=== PATIENT | female | born 1970 | race Caucasian/White ===

== ENCOUNTER 2017-08-15 11:51 | Inpatient (IN) | payer MEDICAID, SELFPAY ==
[2017-08-15 11:52] VITALS: BP 122/93; PULSE 97; RESP 16; TEMP 36.9; O2SAT 99; BMI 18.4
[2017-08-15 13:02] LABS: Absolute Lymphocyte Count 1.32 X10^3/ul (0.83-4.51); Absolute Neutrophil Count 9.5 X10^3/uL (2.0-7.7); Basophil# 0.03 X10^3/uL; Basophil% 0.3 % (0-1); Eosinophil# 0.03 X10^3/uL; Eosinophils% 0.3 % (0-5); Hematocrit 34.7 % (37-47); Hemoglobin 11.2 g/dl (12.0-15.0); Lymphocyte # 1.32 X10^3/ul (4.0); Lymphocyte % 11.5 % (19-41); Mean Corp Hgb Conc 32.3 g/gl (32-36); Mean Corpuscular Hgb 23.7 pg (27.0-32.0); Mean Corpuscular Volume 73.4 fL (81-99); Monocyte# 0.57 X10^3/uL; Neutrophil # 9.51 X10^3/uL (2.7-7.7); Neutrophil % 82.7 % (47-70); Platelet Count 386 K/mm3 (150-450); RBC Distribution Width CV 14.9 % (11.6-14.6); RBC Distribution Width SD 39.3 fl (35.1-43.9); Red Blood Count 4.73 M/mm3 (4.2-5.4); White Blood Count 11.5 K/mm3 (4.4-11.0)
[2017-08-15 13:03] LABS: Anion Gap 6 (5-15); BUN 11 mg/dL (7-18); BUN/Creat Ratio 20.1 RATIO (10-20); Calcium,Total 9.6 mg/dL (8.5-10.1); Chloride 107 mmol/L (98-107); Creatinine, Serum 0.55 mg/dL (0.55-1.02); Differential Indicated SCAN CRITERIA MET; EST Glomerular Filtration Rate 126 mL/min (>60); Est Glom Filt Rate - Afr Amer 152 mL/min (>60); Estimated Creatinine Clearance 85.64 ml/min; Glucose 105 mg/dL (74-106); POSITIVE COUNT NO; POSITIVE DIFFERENTIAL NO; POSITIVE MORPHOLOGY YES; Potassium 3.9 mmol/L (3.5-5.1); Sodium Level 141 mmol/L (136-145)
[2017-08-15 13:29] LABS: Anisocytosis 1+
--- NOTE | 2017-08-15 13:59 | NURSING ---
PAGED NEW VISION
[2017-08-15 14:30] VITALS: BMI 18.5
[2017-08-15] MEDS: Smz/Tmp Ds Tablet 1 TABLET PO (14:42)
[2017-08-15] MEDS: Cephalexin 500 MG Capsule PO (14:42)
[2017-08-15 14:44] VITALS: BP 119/79; RESP 18
--- NOTE | 2017-08-15 15:56 | ED.VISSUMM ---
- ER Visit Summary Date of Service: 08/15/17 Chief Complaint: To ER by Devika from [facility] for medical clearance History of Present Illness: The patient is a 46 F has history of IV heroin use and tobacco use. She was admitted to [facility] proximally 6-7 months ago. She states 1 day after discharge she began to use heroin again. He was admitted for cellulitis of her forearms. When she was discharged she began injecting anterior right and left leg. She denies fever, chills night sweats. Denies weight gain or weight loss. She denies history rheumatic fever, murmur, mitral valve prolapse, SBE or be immune suppressed. She denies history of hepatitis or HIV. She does admit to picking at her skin and reason wounds have not healed. She denies any cardiac, respiratory, GI or symptoms. She denies headache, photophobia, paresthesia, anesthesia or motor weakness. She has trouble with her balance. She denies any ocular or auditory symptoms. Physical Examination: Vital signs are unremarkable and she is afebrile. Head is atraumatic normocephalic. Pupils are equal round reactive. Extraocular muscles are intact. TMs are pearly white with landmarks noted. Nares patent with no drainage. Posterior pharynx without erythema or exudate. Uvula is midline. There is no dysphonia or dysphasia. Trachea is midline. There is no stridor with auscultation of the neck. Heart is regular without murmur, gallop or rub. S1 and S2 are normal. Lungs are clear to auscultation with good movement of air bilaterally. Abdomen is soft nontender with decreased bowel sounds. Patient is alert and oriented ?3. Motor is 5 over 5. Sensory is intact. DTRs are symmetric with no clonus or Babinski sign. Cranial 2 through 12 are intact. Cerebellar testing is normal. Examination of the upper and lower extremities reveals multiple scars. There is slight erythema and warmth dorsal mid right forearm. There is no fluctuance, lymphangitis, epitrochlear or axial lymphadenopathy. Test Results: CBC is slightly elevated 11.5 thousand with 83 segs and no bands. Electrode panel is normal. Emergency Department Course and Treatment: CBC and BMP were obtained to evaluate patient's symptoms and complaints. She was treated with Bactrim DS and cephalexin 500 mg for strep and staph coverage. Treatment Plan: Devika jiang [facility] evaluated the patient and informed me that she qualifies for admission for opiate withdrawal. Therefore, Dr. Donny Mendoza was notified and will admit patient Disposition: Admit [facility] for opiate withdrawal Impression: 1. Opiate withdrawal 2. Cellulitis right forearm 3. Eschar left upper extremity, right and left leg secondary to IV drug use This note was generated with [employer] dictation software. It may contain incorrect words, spelling, and punctuation that were not noted in review of the chart prior to signing ED Disposition - Plan for ED Patient: Chief Complaint: Abscess Referrals: Belén Fall DO [Primary Care Provider] -
--- NOTE | 2017-08-15 16:01 | ED.DCSUM_ITS ---
- ER Visit Summary Date of Service: 08/15/17 Chief Complaint: To ER by Devika from [facility] for medical clearance History of Present Illness: The patient is a 46 F has history of IV heroin use and tobacco use. She was admitted to [facility] proximally 6-7 months ago. She states 1 day after discharge she began to use heroin again. He was admitted for cellulitis of her forearms. When she was discharged she began injecting anterior right and left leg. She denies fever, chills night sweats. Denies weight gain or weight loss. She denies history rheumatic fever, murmur, mitral valve prolapse, SBE or be immune suppressed. She denies history of hepatitis or HIV. She does admit to picking at her skin and reason wounds have not healed. She denies any cardiac, respiratory, GI or symptoms. She denies headache, photophobia, paresthesia, anesthesia or motor weakness. She has trouble with her balance. She denies any ocular or auditory symptoms. Physical Examination: Vital signs are unremarkable and she is afebrile. Head is atraumatic normocephalic. Pupils are equal round reactive. Extraocular muscles are intact. TMs are pearly white with landmarks noted. Nares patent with no drainage. Posterior pharynx without erythema or exudate. Uvula is midline. There is no dysphonia or dysphasia. Trachea is midline. There is no stridor with auscultation of the neck. Heart is regular without murmur, gallop or rub. S1 and S2 are normal. Lungs are clear to auscultation with good movement of air bilaterally. Abdomen is soft nontender with decreased bowel sounds. Patient is alert and oriented ?3. Motor is 5 over 5. Sensory is intact. DTRs are symmetric with no clonus or Babinski sign. Cranial 2 through 12 are intact. Cerebellar testing is normal. Examination of the upper and lower extremities reveals multiple scars. There is slight erythema and warmth dorsal mid right forearm. There is no fluctuance, lymphangitis, epitrochlear or axial lymphadenopathy. Test Results: CBC is slightly elevated 11.5 thousand with 83 segs and no bands. Electrode panel is normal. Emergency Department Course and Treatment: CBC and BMP were obtained to evaluate patient's symptoms and complaints. She was treated with Bactrim DS and cephalexin 500 mg for strep and staph coverage. Treatment Plan: Devika jiang [facility] evaluated the patient and informed me that she qualifies for admission for opiate withdrawal. Therefore, Dr. Donny Mendoza was notified and will admit patient Disposition: Admit [facility] for opiate withdrawal Impression: 1. Opiate withdrawal 2. Cellulitis right forearm 3. Eschar left upper extremity, right and left leg secondary to IV drug use This note was generated with [employer] dictation software. It may contain incorrect words, spelling, and punctuation that were not noted in review of the chart prior to signing ED Disposition - Plan for ED Patient: Chief Complaint: Abscess Referrals: Belén Fall DO [Primary Care Provider] -
[2017-08-15 16:04] VITALS: BP 119/79; PULSE 92; RESP 18
--- NOTE | 2017-08-15 16:13 | NURSING ---
211 OPIOD WITHDRAWAL TERELETSKY
[2017-08-15 16:20] VITALS: BMI 18.6
--- NOTE | 2017-08-15 16:23 | PCM.HP.STD ---
Problem List (1) Opiate withdrawal Status: Acute History of Present Illness Date of Admission: 08/15/17 Chief Complaint: Opiate withdrawal The patient is a 46 year old F who presents through [facility] for opiate withdrawal. She admits to using 0.5-1 g of IV heroin per day for approximately a year and a half. She denies other drug or alcohol use. She is a current pack per day smoker. Her past medical history includes emphysema and chronic anemia. She has significant wounds bilateral upper and lower extremities due to IV drug use. She denies fever, chills. Complains of joint aching. Denies other associated complaints or current withdrawal symptoms. She denies history of overdose, denies history of seizures. Patient has been in treatment approximately 6 months ago for opiate withdrawal and continued using shortly after. She reports she has lost custody of her children which is motivated her to obtain sobriety. 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 Smoking Status: Current every day smoker Tobacco Use: Cigarettes - 1 PPD Drugs: Heroin - *Family History Maternal History Items: Diabetes Paternal History Items: Heart Disease Review of Systems Constitutional: Denies: Chills, Fever, Weight Change HEENT: Denies: Head Aches, Sinus Congestion, Sinus Drainage Cardiovascular: Denies: Chest Pain, Palpitations Respiratory: Denies: Cough, Shortness of breath at rest, Sputum production Gastrointestinal: Denies: Abdominal Pain, Nausea, Vomiting Genitourinary: Denies: Dysuria Musculoskeletal: Reports: Joint Pain Skin: Reports: Wounds - Bilateral upper and lower extremity Neurological: Denies: Numbness, Tingling, Focal weakness Psychiatric: Denies: Anxiety, Depression, Homicidal Ideations, Suicidal Ideations Hematologic/ Lymphatic: Denies: Easy Bruising, Easy Bleeding VTE Information - Inpt Only VTE Present on Admission: No VTE Mechan Device Prophylaxis: SCD's VTE Pharm Prophylaxis ordered?: No Reason prophylaxis not ordered:: Treatment Not Indicated Patient Problems: Active and Suspected Problems Opiate withdrawal (Acute) - Physical Exam General: Alert, Oriented x3, Cooperative, No apparent distress HEENT: Atraumatic, PERRLA, EOMI, Normocephalic Oral: Dry Mucosa, - - Poor dentition Neck: Supple, No JVD, Negative Carotid Bruits Lungs: Clear to auscultation, Diminished Cardiovascular: Regular rate, Regular Rhythm, Normal S1, Normal S2, No murmurs Abdomen: Bowel Sounds Present, Soft, Non Tender, Non-Distended Extremities: No clubbing, No cyanosis, No edema, Capillary Refill Less than 3 Seconds Skin: - - Significant wounds bilateral forearms and bilateral anterior shins bilateral lower extremities. Purulent abscess noted on right lower forearm. Otherwise wounds appears scabbed without signs of infection. Musculoskeletal: No Tenderness to Palpation of Joints or Extremities, Cachexia Neurological: Cranial nerves II-XII grossly intact, Neuro grossly intact Psych/Mental Status: Normal Affect, Appropriate Vital Signs Temp Pulse Resp BP Pulse Ox 98.4 F 92 18 119/79 99 08/15/17 11:52 08/15/17 16:04 08/15/17 16:04 08/15/17 16:04 08/15/17 11:52 Assessment/Plan Active and Suspected Problems Opiate withdrawal (Acute) 1. Acute opiate withdrawal/opioid abuse-medical stabilization per protocol. 2. Bilateral upper extremity and lower extremity cellulitis secondary to IV drug use-begin p.o. Vibramycin. Consult wound RN. 3. Tobacco dependence-encouraged smoking cessation. Nicotine replacement patch. 4. Chronic anemia- stable. DVT prophylaxis- SCDs This patient was seen by BENITO Lin under the supervision of Dr. Wilder.
[2017-08-15 16:27] VITALS: BP 118/80; PULSE 81; RESP 18; TEMP 37.2; O2SAT 100
[2017-08-15] MEDS: cloNIDine HCl 0.1 MG Tablet PO ×2 (16:43→22:48)
[2017-08-15] MEDS: Methocarbamol 750 MG Tablet PO ×2 (16:43→22:47)
[2017-08-15] MEDS: chlordiazePOXIDE 25 MG Capsule PO ×2 (16:43→19:35)
[2017-08-15] MEDS: Buprenorphine HCl 2 MG TAB.SUBL SL (17:51)
[2017-08-15 17:52] VITALS: BP 118/80; PULSE 81; RESP 18; TEMP 37.2
[2017-08-15] MEDS: Pramipexole Di-HCl 0.25 MG Tablet PO (19:36)
--- NOTE | 2017-08-15 19:39 | NURSING ---
pt out in [place] states she is leaving unless she gets a sleeping pill right now, explained that the dr ordered extra dose of librium which will help relax her. pt returned to her room so dayshift rn could give med. pt wants to know how she can leave explained that she may leave at any time ama if she is not ready for the program at this time [facility] is not a locked unit to let the nurse know if she decides to leave. extra dose of librium given per order by the dayshift rn
[2017-08-15] MEDS: traZODone 50 MG Tablet PO (22:47)
[2017-08-15] MEDS: Dicyclomine 10 MG Capsule 20 MG PO (22:47)
[2017-08-15] MEDS: Doxycycline 100 MG CAPSULE PO (22:48)
[2017-08-15 22:52] VITALS: BP 114/67; PULSE 68; RESP 16; TEMP 36.6
[2017-08-16] VITALS (8 sets, daily range): BP systolic 77–111; BP diastolic 47–73; PULSE 54–68; RESP 16–18; TEMP 36.3–36.9; O2SAT 99
[2017-08-16] MEDS: chlordiazePOXIDE 25 MG Capsule PO ×2 (01:33→07:27)
[2017-08-16] MEDS: Buprenorphine HCl 2 MG TAB.SUBL SL ×3 (01:33→18:11)
[2017-08-16] MEDS: cloNIDine HCl 0.1 MG Tablet PO (01:33)
[2017-08-16] MEDS: Methocarbamol 750 MG Tablet PO ×2 (05:09→12:21)
[2017-08-16] MEDS: Dicyclomine 10 MG Capsule 20 MG PO ×2 (05:09→12:21)
[2017-08-16] MEDS: Pramipexole Di-HCl 0.25 MG Tablet PO ×2 (07:27→18:11)
--- NOTE | 2017-08-16 08:42 | PCM.PN.HOSP ---
Patient Problems: Active and Suspected Problems Opiate withdrawal (Acute) Subjective: Did not sleep well last night due to restless legs. Stated that she fell asleep around 2 AM. Requesting something stronger to help her sleep and made mention of Xanax or Valium as she knows other people that are taking it. Vitals/I&O's: Vital Signs Temp Pulse Resp BP Pulse Ox 36.6 C 54 L 16 98/54 L 100 08/16/17 05:12 08/16/17 05:12 08/16/17 05:12 08/16/17 05:12 08/15/17 16:27 Oxygen Delivery Method Room Air Weight: 43.148 kg Body Mass Index (BMI) 18.6 Intake and Output for Last 24 Hours 08/14/17 08/15/17 08/16/17 23:59 23:59 23:59 Intake Total 200 / 200 Balance 200 / 200 General: Alert, Cooperative, No apparent distress HEENT: Atraumatic, Normocephalic Neck: No Nodes, Thyroid Normal Size and Texture Lungs: Clear to auscultation, Normal air movement, No rhonchi, No wheeze Cardiovascular: Regular rate, Regular Rhythm, Normal S1, Normal S2, No murmurs Abdomen: Bowel Sounds Present, Soft, Non Tender, Non-Distended, No Hepato-splenomegaly Skin: - - Eschars on the bilateral upper extremities. Appears to be clean base. No surrounding erythema nor any evidence of any cellulitis. Psych/Mental Status: Normal Affect, Appropriate Current Medications Buprenorphine HCl (Buprenorphine Hcl) 4 mg SL Q8H GRAY PRN Reason: Taper Stop: 08/18/17 21:59 Last Admin: 08/16/17 01:33 Dose: 4 mg Chlordiazepoxide (Librium) 25 mg PO Q6H PRN PRN PRN Reason: Anxiety Score 2-3/3 Last Admin: 08/16/17 07:27 Dose: 25 mg Clonidine (Catapres) 0.1 mg PO Q2H PRN PRN PRN Reason: Hot/Cold Sweats or Anxiety Last Admin: 08/16/17 01:33 Dose: 0.1 mg Dicyclomine HCl (Bentyl) 20 mg PO Q6H PRN PRN PRN Reason: Abdomnial Discomfort Last Admin: 08/16/17 05:09 Dose: 20 mg Doxycycline Monohydrate (Doxycycline) 100 mg PO BID [facility] Last Admin: 08/15/17 22:48 Dose: 100 mg Methocarbamol (Methocarbamol) 750 mg PO Q6H PRN PRN PRN Reason: Muscle Aches Last Admin: 08/16/17 05:09 Dose: 750 mg Nicotine (Nicoderm Cq (Pbkc)) 21 mg TRANSDERM. DAILY [facility] Last Admin: 08/15/17 16:58 Dose: 21 mg Nutritional Formula (Lactose Free) (Ensure Enlive) 120 ml PO 4X/DAY [facility] Last Admin: 08/15/17 22:47 Dose: 120 ml Pramipexole Dihydrochloride (Mirapex) 0.25 mg PO BID PRN PRN Reason: RESTLESSNESS Last Admin: 08/16/17 07:27 Dose: 0.25 mg Trazodone HCl (Desyrel) 50 mg PO QHS [facility] Last Admin: 08/15/17 22:47 Dose: 50 mg Assessment/Plan Active and Suspected Problems Opiate withdrawal (Acute) 1. Acute heroin withdrawal Patient to continue with buprenorphine taper as already laid out in the medical stabilization protocol. Patient also have other medications to help with other somatic complaints. Patient with restless leg so that we can add Sinemet to help with that. For the patient's insomnia, informed her that seems that the restless legs were more of a aggravation for keeping her up rather than just being overt insomnia. I told her that I would not be giving her any medications is going to to completely knock her out. But hopefully if we can focus on her symptoms at that would allow her to sleep better. I informed her also that the first 19 to be the worst as well and following subsequent nights tend to be better dramatically. I told her I would not be prescribing her any benzodiazepines as I do not want to treat one addiction for another and I discouraged the use of Valium and Xanax for sleep. We can go up on the trazodone to 100 and see if that helps. Patient was ordered by the admitting physician Elder for anxiety, I am going to discontinue that as patient is very somnolent just this morning and utilize Vistaril for anxiety. Outpatient therapy has been arranged for the patient. Expected date of discharge is August 18. Upper extremity eschars Evidence of any infection at this time. If any concern for infection does arrived then would have a low threshold to initiate antibiotic therapy. Code Visit Inpatient E&M: 63489 Subs Hosp L2
--- NOTE | 2017-08-16 08:47 | PN_ITS ---
Patient Problems: Active and Suspected Problems Opiate withdrawal (Acute) Subjective: Did not sleep well last night due to restless legs. Stated that she fell asleep around 2 AM. Requesting something stronger to help her sleep and made mention of Xanax or Valium as she knows other people that are taking it. Vitals/I&O's: Vital Signs Temp Pulse Resp BP Pulse Ox 36.6 C 54 L 16 98/54 L 100 08/16/17 05:12 08/16/17 05:12 08/16/17 05:12 08/16/17 05:12 08/15/17 16:27 Oxygen Delivery Method Room Air Weight: 43.148 kg Body Mass Index (BMI) 18.6 Intake and Output for Last 24 Hours 08/14/17 08/15/17 08/16/17 23:59 23:59 23:59 Intake Total 200 / 200 Balance 200 / 200 General: Alert, Cooperative, No apparent distress HEENT: Atraumatic, Normocephalic Neck: No Nodes, Thyroid Normal Size and Texture Lungs: Clear to auscultation, Normal air movement, No rhonchi, No wheeze Cardiovascular: Regular rate, Regular Rhythm, Normal S1, Normal S2, No murmurs Abdomen: Bowel Sounds Present, Soft, Non Tender, Non-Distended, No Hepato- splenomegaly Skin: - - Eschars on the bilateral upper extremities. Appears to be clean base. No surrounding erythema nor any evidence of any cellulitis. Psych/Mental Status: Normal Affect, Appropriate Current Medications Buprenorphine HCl (Buprenorphine Hcl) 4 mg SL Q8H GRAY PRN Reason: Taper Stop: 08/18/17 21:59 Last Admin: 08/16/17 01:33 Dose: 4 mg Chlordiazepoxide (Librium) 25 mg PO Q6H PRN PRN PRN Reason: Anxiety Score 2-3/3 Last Admin: 08/16/17 07:27 Dose: 25 mg Clonidine (Catapres) 0.1 mg PO Q2H PRN PRN PRN Reason: Hot/Cold Sweats or Anxiety Last Admin: 08/16/17 01:33 Dose: 0.1 mg Dicyclomine HCl (Bentyl) 20 mg PO Q6H PRN PRN PRN Reason: Abdomnial Discomfort Last Admin: 08/16/17 05:09 Dose: 20 mg Doxycycline Monohydrate (Doxycycline) 100 mg PO BID [facility] Last Admin: 08/15/17 22:48 Dose: 100 mg Methocarbamol (Methocarbamol) 750 mg PO Q6H PRN PRN PRN Reason: Muscle Aches Last Admin: 08/16/17 05:09 Dose: 750 mg Nicotine (Nicoderm Cq (Pbkc)) 21 mg TRANSDERM. DAILY [facility] Last Admin: 08/15/17 16:58 Dose: 21 mg Nutritional Formula (Lactose Free) (Ensure Enlive) 120 ml PO 4X/DAY [facility] Last Admin: 08/15/17 22:47 Dose: 120 ml Pramipexole Dihydrochloride (Mirapex) 0.25 mg PO BID PRN PRN Reason: RESTLESSNESS Last Admin: 08/16/17 07:27 Dose: 0.25 mg Trazodone HCl (Desyrel) 50 mg PO QHS [facility] Last Admin: 08/15/17 22:47 Dose: 50 mg Assessment/Plan Active and Suspected Problems Opiate withdrawal (Acute) 1. Acute heroin withdrawal * Patient to continue with buprenorphine taper as already laid out in the medical stabilization protocol. Patient also have other medications to help with other somatic complaints. * Patient with restless leg so that we can add Sinemet to help with that. * For the patient's insomnia, informed her that seems that the restless legs were more of a aggravation for keeping her up rather than just being overt insomnia. I told her that I would not be giving her any medications is going to to completely knock her out. But hopefully if we can focus on her symptoms at that would allow her to sleep better. I informed her also that the first 19 to be the worst as well and following subsequent nights tend to be better dramatically. * I told her I would not be prescribing her any benzodiazepines as I do not want to treat one addiction for another and I discouraged the use of Valium and Xanax for sleep. We can go up on the trazodone to 100 and see if that helps. * Patient was ordered by the admitting physician Elder for anxiety, I am going to discontinue that as patient is very somnolent just this morning and utilize Vistaril for anxiety. * Outpatient therapy has been arranged for the patient. * Expected date of discharge is August 18. Upper extremity eschars * Evidence of any infection at this time. If any concern for infection does arrived then would have a low threshold to initiate antibiotic therapy. Code Visit Inpatient E&M: 76129 Subs Hosp L2
[2017-08-16] MEDS: Doxycycline 100 MG CAPSULE PO ×2 (10:44→22:22)
--- NOTE | 2017-08-16 12:14 | NURSING ---
wound photo: left forearm
--- NOTE | 2017-08-16 12:15 | NURSING ---
wound photo: right forearm
--- NOTE | 2017-08-16 12:15 | NURSING ---
wound photo: bilateral lower legs
[2017-08-16] MEDS: 0.9% Normal Saline 1,000 ML 999 ML IV (14:30)
--- NOTE | 2017-08-16 15:10 | CHAPLAIN ---
Type of Pastoral Visit _x__ Initial Visit ___ Follow-up Visit ___ On-call Visit ___ General Patient Visit ___ Spiritual Assessment ___ Family Conference ___ Bereavement ___ Rapid Response ___ Code Blue ___ Other (describe below) Pastoral Care Referral From _x__ Patient ___ Family ___ Nurse ___ Physician ___ Sales And Marketing Administrator ___ Bail Agent ___ Other (describe below) Sacrament/Intervention _x__ Active listening ___ Anointing ___ Confucianism ___ Bereavement ___ Communion ___ Misa exploration ___ ___ Life review _x__ Prayer ___ Reconciliation ___ Sacrament of Sick _x__ Supportive presence ___ Wedding ___ Other (describe below) Pastoral Comments patient is concerned about getting to go back to work; pt says she has family support; pt does not yet have a plan about support after medical stabilization; pt welcomed a prayer
--- NOTE | 2017-08-16 22:37 | NURSING ---
Patient's sister called this evening. She stated she went through the drug withdrawal program 3-months ago, and has been clean. She stated that she has stayed away from her sister, because she said they are each others weakness. The sister stated she is in [facility] and had talked to her sister and that was the program she wanted to go to after discharge. The sister expressing concerns in being in the same group, and feels it would be better if they were not in the same group. I will leave a note for the [employer] arts administrator.
[2017-08-17] VITALS (7 sets, daily range): BP systolic 91–104; BP diastolic 54–60; PULSE 62–77; RESP 16–18; TEMP 36.5–36.8; O2SAT 99–100
[2017-08-17] MEDS: Buprenorphine HCl 2 MG TAB.SUBL SL ×3 (02:14→21:12)
[2017-08-17] MEDS: Pramipexole Di-HCl 0.25 MG Tablet PO (06:44)
--- NOTE | 2017-08-17 08:26 | NURSING ---
pt c/o feeling sluggish requesting b/p to be taken at this time. Vitals taken- b/p 95/58- denies dizziness. Resting in bed denies further needs
--- NOTE | 2017-08-17 09:16 | PN_ITS ---
Patient Problems: Active and Suspected Problems Opiate withdrawal (Acute) Subjective: Better. Slept for about 6 9 hours last night. Vitals/I&O's: Vital Signs Temp Pulse Resp BP Pulse Ox 36.5 C L 70 16 95/58 L 99 08/17/17 08:27 08/17/17 08:27 08/17/17 08:27 08/17/17 08:27 08/17/17 08:25 Oxygen Delivery Method Room Air Weight: 43.148 kg Body Mass Index (BMI) 18.6 Intake and Output for Last 24 Hours 08/15/17 08/16/17 08/17/17 23:59 23:59 23:59 Intake Total 200 / 200 1600 / 1600 400 / 400 Balance 200 / 200 1600 / 1600 400 / 400 General: Alert, Cooperative, No apparent distress HEENT: Atraumatic, Normocephalic Neck: No Nodes, Thyroid Normal Size and Texture Lungs: Clear to auscultation, Normal air movement, No rhonchi, No wheeze Cardiovascular: Regular rate, Regular Rhythm, Normal S1, Normal S2, No murmurs Abdomen: Bowel Sounds Present, Soft, Non Tender, Non-Distended, No Hepato- splenomegaly Skin: - - Showers on the upper and lower extremities without any evidence of cellulitis. Current Medications Buprenorphine HCl (Buprenorphine Hcl) 2 mg SL Q8H ON LICENSE OF [facility] PRN Reason: Taper Stop: 08/18/17 21:59 Last Admin: 08/17/17 02:14 Dose: 2 mg Clonidine (Catapres) 0.1 mg PO Q2H PRN PRN PRN Reason: Hot/Cold Sweats or Anxiety Last Admin: 08/16/17 01:33 Dose: 0.1 mg Dicyclomine HCl (Bentyl) 20 mg PO Q6H PRN PRN PRN Reason: Abdomnial Discomfort Last Admin: 08/16/17 12:21 Dose: 20 mg Doxycycline Monohydrate (Doxycycline) 100 mg PO BID ON LICENSE OF [facility] Last Admin: 08/16/17 22:22 Dose: 100 mg Hydroxyzine Pamoate (Vistaril) 50 mg PO Q6H PRN PRN PRN Reason: Mild Anxiety (score 1/3) Methocarbamol (Methocarbamol) 750 mg PO Q6H PRN PRN PRN Reason: Muscle Aches Last Admin: 08/16/17 12:21 Dose: 750 mg Nicotine (Nicoderm Cq (Pbkc)) 21 mg TRANSDERM. DAILY GRAY Last Admin: 08/16/17 10:44 Dose: 21 mg Pramipexole Dihydrochloride (Mirapex) 0.25 mg PO Q12H PRN PRN PRN Reason: Restless Legs Last Admin: 08/17/17 06:44 Dose: 0.25 mg Trazodone HCl (Desyrel) 100 mg PO HS GRAY Last Admin: 08/16/17 22:22 Dose: 100 mg Assessment/Plan Active and Suspected Problems Opiate withdrawal (Acute) 1. Acute heroin withdrawal * Patient to continue with buprenorphine taper as already laid out in the medical stabilization protocol. Patient also have other medications to help with other somatic complaints. * Patient with restless leg so that we can add Sinemet to help with that. * For the patient's insomnia, informed her that seems that the restless legs were more of a aggravation for keeping her up rather than just being overt insomnia. I told her that I would not be giving her any medications is going to to completely knock her out. But hopefully if we can focus on her symptoms at that would allow her to sleep better. I informed her also that the first 19 to be the worst as well and following subsequent nights tend to be better dramatically. * I told her I would not be prescribing her any benzodiazepines as I do not want to treat one addiction for another and I discouraged the use of Valium and Xanax for sleep. We can go up on the trazodone to 100 and see if that helps. * Patient was ordered by the admitting physician Elder for anxiety, I am going to discontinue that as patient is very somnolent just this morning and utilize Vistaril for anxiety. * Outpatient therapy has been arranged for the patient. * Expected date of discharge is August 18. . Upper extremity eschars * Evidence of any infection at this time. If any concern for infection does arrived then would have a low threshold to initiate antibiotic therapy. Code Visit Inpatient E&M: 10749 Subs Hosp L2
[2017-08-17] MEDS: Doxycycline 100 MG CAPSULE PO ×2 (10:04→21:12)
[2017-08-17] MEDS: Mineral Oil/Petrolatum Cr 1.75oz Bottle 1 APPLIC TOPICAL (20:01)
[2017-08-18 04:34] VITALS: BP 104/62; PULSE 68; RESP 16; TEMP 36.4
[2017-08-18 04:35] VITALS: O2SAT 98
[2017-08-18 07:43] VITALS: BP 99/57; PULSE 77; RESP 18; TEMP 36.6; O2SAT 99
[2017-08-18] MEDS: Buprenorphine HCl 2 MG TAB.SUBL SL (09:09)
--- NOTE | 2017-08-18 09:19 | PCM.DC ---
- Discharge Diagnoses Current Active Problems: Current Active and Chronic Problems Opiate withdrawal (Acute) You will use the following diet at home:: No restrictions Your food should be the consistency of: Regular Your liquids should be the consistency of: Regular/Thin Discharge Activity: Return to Normal Activity Call your doctor if your incision/area has: Continuous Slow Oozing, Increased Pain/ Swelling, Increased Redness, Foul Smelling Discharge Call your doctor if you observe: Fever of 101 or Higher, Shortness of breath Allergies/Adverse Reactions: Allergies codeine phosphate [From Tylenol-Codeine #3] Adverse Reaction (Verified 08/15/17 11:56) Vomiting Medications to take at Discharge Mineral Oil/Petrolatum Cr [Aquaphor] 1 applic TOPICAL DAILY #1 bottle 08/18/17 The following prescriptions were given: Mineral Oil/Petrolatum Cr [Aquaphor] 1 applic TOPICAL DAILY #1 bottle Primary Care Physician: Belén Fall DO [Primary Care Provider] - Within 2 Weeks Please Follow Up With: 180 When: today at 1100 Proposed Discharge Date: 08/18/17
--- NOTE | 2017-08-18 09:20 | PCM.DC.SUM ---
Discharge Date and Diagnosis - Problem List Patient Problems: Active and Suspected Problems Opiate withdrawal (Acute) Date of Admission: 08/15/17 Date of Discharge: 08/18/17 - Primary Discharge Diagnosis Active and Suspected Problems Opiate withdrawal (Acute) Hospital Course and Treatment Consultations 08/15/17 16:35 Consult: Onc/Wound/dog walker Routine Comment: Operations: None Procedures: None Summary of Care Provided: The patient is a 46 year old F presents with acute opiate withdrawal. Patient was started on the standard buprenorphine taper. Patient did not do well the first night. Due to restless legs. Subsequent nights, patient slept very well and her some other somatic complaints well-tolerated. Calcaneus is patient has a very extensive eschars on her upper extremities. No active infection was noted to the patient was started on empiric antibiotics. I will not continue with antibiotics as an see that there is any clear infection at this time. I did explain to the patient I will not continue with antibiotics but given these wounds that she certainly would be at risk for developing infection. Patient stated that she was using a antibiotic ointment at home. I told her that I would not advise that and I would recommend using an emollient such as Aquaphor and to cover that with gauze and then secured with Goyo wraps. Comp getting these wounds as patient is also itching them which may impede her healing. These are from injecting heroin and whatever synthetic substances she may be using. Patient will be going to 180 today for further counseling and further management of her addictions. Physical exam Vital Signs Height 1.52 m Weight: 43.148 kg Weight in Pounds 95.1 lbs Pulse Ox 99 Temperature 36.6 C Pulse Rate 77 Respiratory Rate 18 Blood Pressure [2nd BP] 77/48 Blood Pressure [BP] 98/58 Blood Pressure 99/57 Blood Pressure Position [2nd Semi-Fowlers BP] Blood Pressure Position [BP] Semi-Fowlers Blood Pressure Position Semi-Fowlers Patient is no acute distress. Afebrile. Pleasant and up eating breakfast. Arms are wrapped in Goyo wraps, did not remove. [] Discharge Diet: No Restrictions Discharge Activity: Return to Normal Activity Call your doctor if your incision/area has: Continuous Slow Oozing, Increased Pain/ Swelling, Increased Redness, Foul Smelling Discharge Call your doctor if you observe: Fever of 101 or Higher, Shortness of breath Home Medications: Medications to take at Discharge Mineral Oil/Petrolatum Cr [Aquaphor] 1 applic TOPICAL DAILY #1 bottle 08/18/17 Following Prescrptions Were Given to Patient: Mineral Oil/Petrolatum Cr [Aquaphor] 1 applic TOPICAL DAILY #1 bottle Primary Care Physician: Belén Fall DO [Primary Care Provider] - Within 2 Weeks Please Follow Up With: 180 When: today at 1100 Disposition: Home Minutes spent on discharge:: 28 Patient Condition:: Good Meaningful Use Info Meaningful Use Diagnoses (Choose all that apply): None applicable Code Visit Inpatient E&M: 75842 Disch Hosp
[2017-08-18 09:36] VITALS: BP 99/57; PULSE 77; RESP 18; TEMP 36.6; O2SAT 99
== END 2017-08-18 09:35 | disposition home or self-care (01) | DRG 434 ==
LOC: ED 13:21 → MS2 16:14
PROVIDERS: Admitting Provider Internal Medicine; Emergency Provider Emergency Medicine
DX: F11.23 Opioid dependence with withdrawal (principal); R64 Cachexia; F17.210 Nicotine dependence, cigarettes, uncomplicated; D64.9 Anemia, unspecified; Z68.1 Body mass index [BMI] 19.9 or less, adult; G25.81 Restless legs syndrome
CPT/HCPCS: 36415; 80048; 85025; 97802; 99284; J7030; A4216

== ENCOUNTER 2017-09-29 09:00 | Outpatient (RCR) | payer MEDICAID, SELFPAY ==
[2017-09-22 11:01] VITALS: BP 100/61; PULSE 80; RESP 18; TEMP 36.2; BMI 20.3
--- NOTE | 2017-09-22 13:55 | PCM.WC.HP ---
(1) Infected open wound Status: Acute Current Visit: Yes Code(s): T14.8XXA - Other injury of unspecified body region, initial encounter; L08.9 - Local infection of the skin and subcutaneous tissue, unspecified (2) Opiate withdrawal Status: Acute Current Visit: No Code(s): F11.23 - Opioid dependence with withdrawal (3) Malnutrition Status: Acute Current Visit: Yes Code(s): E46 - Unspecified protein-calorie malnutrition History of Present Illness Date of Service: 09/22/17 Chief Complaint: Follow-up open abscesses bilateral forearms and bilateral shins. History of Wound: 46-year-old white female with a history of drug abuse has been on a binge of heroin for the last 8 months. She is now in drug rehab and has developed abscesses on both bilateral forearms and shins from injection sites. Patient appears with malnutrition and open wounds with yellow crusted and black eschar in the centers of some of the wounds. Patient works full-time at [employer] and the only reason she stopped using was because all of her children have been taken away from her and is unable to see her grandchild because they have denied her. We will start with as much debridement as possible she shows a lot of eschar on the forearms we will try using Santyl and sharps debridements as much as tolerates. Refer to surgery for a consult for cleaning. Time get patient started on antibiotics and antimicrobials and diet increasing meats and proteins. Past Medical History Past Medical History: Drug abuse heroin alcohol Surgical History: hysterectomy Allergies/Adverse Reactions: Allergies codeine phosphate [From Tylenol-Codeine #3] Adverse Reaction (Verified 08/15/17 11:56) Vomiting Home Medications: Ambulatory Orders Medication Instructions Recorded Mineral Oil/Petrolatum Cr 1 applic TOPICAL DAILY #1 bottle 08/18/17 [Aquaphor] - Family History Maternal Diabetes Paternal Heart Disease Lives: Alone Smoking Status: Heavy Smoker (>10/day) Review of Systems Constitutional: Denies: Chills, Fever Eyes: Denies: Blurred vision, Drainage, Pain HEENT: Denies: Difficulty Hearing, Difficulty Swallowing, Sore Throat, Visual Changes Cardiovascular: Denies: Chest Pain, Palpitations, Syncope Respiratory: Denies: Cough, Shortness of Breath Gastrointestinal: Denies: Abdominal Pain, Nausea, Vomiting Genitourinary: Denies: Dysuria, Frequency Musculoskeletal: Denies: Joint Pain, Muscle pain Skin: Reports: - - Ulcers forearms and shins. Denies: Jaundice, Rash Neurological: Denies: Balance problems, Change in Speech, Difficulty swallowing, Focal weakness Psychiatric: Denies: Anxiety, Depression Endocrine: Denies: Change in Body Habitus Hematologic/ Lymphatic: Denies: Adenopathy - Physical Exam Vital Signs Temp Pulse Resp BP 97.1 F L 80 18 100/61 09/22/17 11:01 09/22/17 11:01 09/22/17 11:01 09/22/17 11:01 General: Oriented x3, Cooperative, Well developed HEENT: Atraumatic, PERRLA Oral: Moist Mucosa Neck: Supple, No JVD Lungs: Clear to auscultation, Normal air movement Cardiovascular: Regular rate, Regular Rhythm Abdomen: Bowel Sounds Present, Soft, Non Tender, No Hepato-splenomegaly Extremities: No clubbing, Edema - Hands and feet Skin: Ulcer/ Wound - Open abscesses bilateral forearms and shins Wound Measurements and Assessment WC - Nurse 1 - General Ulcer Measurement Start: 09/22/17 11:01 Freq: Status: Active Protocol: Activity Type Activity Date Activity User E-Sign Co-Sign Detail Recorded Client Recorded Date Recorded By Document 09/22/17 11:01 DV [id number] 09/22/17 11:49 DV 09/22/17 11:01 Wound Center Nurse 1 [Ulcer Assessment] #4 Left Moura -Combined with other wound No -Current Size (cm) - Length 16.0 -Current Size (cm) - Width 5.2 -Current Size (cm) - Depth 0.5 -Total Square Cm 83.20 -Date of Last Picture (Recall this 09/22/17 field) -Photo Taken Yes -Epithelialization None Present -Tunneling No -Undermining/Tunneling No -Circular Undermining No -Classification - Thickness Full Thickness without Exposed Support Structure -Exudate Amt Medium (34-66%) -Exudate Type Yellow/Green -Wound Margin Indistinct, Non -Visible -Granulation Amt None Present (0 %) -Granulation Quality N/A -Slough/Fibrin Yes -Necrosis Amt Large (67-100%) -Necrotic Tissue Type Adherent Slough -Structure Exposed None/Limited to Skin Breakdown -Texture (Ana-wound Skin Appearance) Assessed Localized Edema Scarring -Moisture (Ana-wound Skin Appearance Assessed ) Weeping Dry/Scaly -Color (Ana-wound Skin Appearance) Assessed Ecchymosis Erythema Hemosiderin Staining -Temperature (Ana-wound Skin No Abnormality Appearance) (Pt Warm) -Tenderness on Palpation (Ana-wound Yes Skin Appearance) -Ulcer Cleansing Wound Cleanser -Foul Odor after Cleansing No -Anesthetic Used 5% Lidocaine Gel #3 Right Moura -Combined with other wound No -Current Size (cm) - Length 16.0 -Current Size (cm) - Width 3.7 -Current Size (cm) - Depth 0.5 -Total Square Cm 59.20 -Date of Last Picture (Recall this 09/22/17 field) -Photo Taken Yes -Epithelialization None Present -Tunneling No -Undermining/Tunneling No -Circular Undermining No -Classification - Thickness Full Thickness without Exposed Support Structure -Exudate Amt Medium (34-66%) -Exudate Type Yellow/Green -Wound Margin Thickened -Granulation Amt None Present (0 %) -Granulation Quality N/A -Slough/Fibrin Yes -Necrosis Amt Large (67-100%) -Necrotic Tissue Type Eschar -Structure Exposed None/Limited to Skin Breakdown -Texture (Ana-wound Skin Appearance) Assessed Localized Edema Scarring -Moisture (Ana-wound Skin Appearance Assessed ) Weeping -Color (Ana-wound Skin Appearance) Assessed Erythema -Temperature (Ana-wound Skin No Abnormality Appearance) (Pt Warm) -Tenderness on Palpation (Ana-wound Yes Skin Appearance) -Ulcer Cleansing Wound Cleanser -Foul Odor after Cleansing No -Anesthetic Used 5% Lidocaine Gel #2 Left Lateral Forarm -Combined with other wound No -Current Size (cm) - Length 7.5 -Current Size (cm) - Width 3.8 -Current Size (cm) - Depth 0.3 -Total Square Cm 28.50 -Date of Last Picture (Recall this 09/22/17 field) -Photo Taken Yes -Epithelialization None Present -Tunneling No -Undermining/Tunneling No -Circular Undermining No -Classification - Thickness Full Thickness without Exposed Support Structure -Exudate Amt Small (1-33%) -Exudate Type Serosanguineous -Wound Margin Thickened -Granulation Amt None Present (0 %) -Granulation Quality N/A -Slough/Fibrin Yes -Necrosis Amt Large (67-100%) -Necrotic Tissue Type Adherent Slough -Structure Exposed None/Limited to Skin Breakdown -Texture (Ana-wound Skin Appearance) Assessed Friable Localized Edema Scarring -Moisture (Ana-wound Skin Appearance Assessed ) Weeping Dry/Scaly -Color (Ana-wound Skin Appearance) Assessed Ecchymosis Erythema Hemosiderin Staining -Temperature (Ana-wound Skin No Abnormality Appearance) (Pt Warm) -Tenderness on Palpation (Ana-wound Yes Skin Appearance) -Ulcer Cleansing Wound Cleanser -Foul Odor after Cleansing No -Anesthetic Used 5% Lidocaine Gel #1 Right Lateral Forearm -Combined with other wound No -Current Size (cm) - Length 9.0 -Current Size (cm) - Width 4.0 -Current Size (cm) - Depth 0.5 -Total Square Cm 36.00 -Date of Last Picture (Recall this 09/22/17 field) -Photo Taken Yes -Epithelialization None Present -Tunneling No -Undermining/Tunneling No -Circular Undermining No -Classification - Thickness Full Thickness without Exposed Support Structure -Exudate Amt Large (67-100%) -Exudate Type Serous -Wound Margin Thickened -Granulation Amt None Present (0 %) -Granulation Quality N/A -Slough/Fibrin Yes -Necrosis Amt Large (67-100%) -Necrotic Tissue Type Adherent Slough -Structure Exposed None/Limited to Skin Breakdown -Texture (Ana-wound Skin Appearance) Assessed Friable Localized Edema Scarring Rash -Moisture (Ana-wound Skin Appearance Assessed ) Weeping -Color (Ana-wound Skin Appearance) Assessed Ecchymosis Erythema -Temperature (Ana-wound Skin No Abnormality Appearance) (Pt Warm) -Tenderness on Palpation (Ana-wound Yes Skin Appearance) -Ulcer Cleansing Wound Cleanser -Foul Odor after Cleansing No -Anesthetic Used 5% Lidocaine Gel [Edema Assessment] -Lower Limb Edema Present No -Right Calf (cm) 29.4 -Right Ankle (cm) 18.0 -Left Calf (cm) 30.0 -Left Ankle (cm) 18.7 WC - Nurse 2 - General Ulcer CM Notes Start: 09/22/17 11:01 Freq: Status: Active Protocol: Activity Type Activity Date Activity User E-Sign Co-Sign Detail Recorded Client Recorded Date Recorded By Document 09/22/17 12:15 MW [id number] 09/22/17 12:36 MW 09/22/17 12:15 Wound Center Nurse 2 [Procedure/Treatment] #4 Left Moura -Time 12:15 -Correct Patient Yes -Correct Side, Site, Position Yes -Correct Procedure Yes -Procedure Performed Yes -Type of Procedure Debridement -Clinical Debridement Muscle -Post Debridement Size (cm) - Length 15.0 -Post Debridement Size (cm) - Width 6.0 -Post Debridement Size (cm) - Depth 0.3 -Total Square Cm 90.00 -Wound/Ulcer Outcome Not Healed -Ulcer Cleansing Rinsed/ Irrigated with Saline -Foul Odor after Cleansing No -Bioengineered Tissue No -Bleeding Controlled with Pressure -Treatment Response Procedure Tolerated Well #3 Right Moura -Time 12:15 -Correct Patient Yes -Correct Side, Site, Position Yes -Correct Procedure Yes -Procedure Performed Yes -Type of Procedure Debridement -Clinical Debridement Muscle -Post Debridement Size (cm) - Length 16.5 -Post Debridement Size (cm) - Width 5.0 -Post Debridement Size (cm) - Depth 0.5 -Total Square Cm 82.50 -Wound/Ulcer Outcome Not Healed -Ulcer Cleansing Rinsed/ Irrigated with Saline -Foul Odor after Cleansing No -Bioengineered Tissue No -Bleeding Controlled with Pressure -Treatment Response Procedure Tolerated Well #2 Left Lateral Forarm -Time 12:15 -Correct Patient Yes -Correct Side, Site, Position Yes -Correct Procedure Yes -Procedure Performed No -Post Debridement Size (cm) - Length 7.5 -Post Debridement Size (cm) - Width 3.8 -Post Debridement Size (cm) - Depth 0.3 -Total Square Cm 28.50 -Wound/Ulcer Outcome Not Healed -Ulcer Cleansing Not Cleansed -Foul Odor after Cleansing No -Type of bioengineered Tissue Apligraf -Bleeding Controlled with Pressure -Treatment Response Procedure Tolerated Well #1 Right Lateral Forearm -Time 12:15 -Correct Patient Yes -Correct Side, Site, Position Yes -Correct Procedure Yes -Procedure Performed Yes -Type of Procedure Debridement -Clinical Debridement Subcutaneous -Post Debridement Size (cm) - Length 9.0 -Post Debridement Size (cm) - Width 4.0 -Post Debridement Size (cm) - Depth 0.5 -Total Square Cm 36.00 -Wound/Ulcer Outcome Not Healed -Ulcer Cleansing Rinsed/ Irrigated with Saline -Foul Odor after Cleansing No -Bioengineered Tissue No -Bleeding Controlled with Pressure -Treatment Response Procedure Tolerated Well [See Physician Procedure note for Specifics] Pain Scale: 0-10 Numeric [Pain] -Is Patient Pain Free? Yes Musculoskeletal: No Tenderness to Palpation of Joints or Extremities Lymphatic: No Cervical, Supraclavicular, or Inguinal Adenopathy Neurological: Cranial nerves II-XII grossly intact, Neuro grossly intact Psych/Mental Status: Normal Affect, Appropriate, Alert and oriented to time, place, person, mood and affect Debridement Note Post-Debridement Measurements/Treatment WC - Nurse 2 - General Ulcer CM Notes Start: 09/22/17 11:01 Freq: Status: Active Protocol: Activity Type Activity Date Activity User E-Sign Co-Sign Detail Recorded Client Recorded Date Recorded By Document 09/22/17 12:15 MW [id number] 09/22/17 12:36 MW 09/22/17 12:15 Wound Center Nurse 2 #4 Left Moura -Time 12:15 -Correct Patient Yes -Correct Side, Site, Position Yes -Correct Procedure Yes -Procedure Performed Yes -Type of Procedure Debridement -Clinical Debridement Muscle -Post Debridement Size (cm) - Length 15.0 -Post Debridement Size (cm) - Width 6.0 -Post Debridement Size (cm) - Depth 0.3 -Total Square Cm 90.00 -Wound/Ulcer Outcome Not Healed -Ulcer Cleansing Rinsed/ Irrigated with Saline -Foul Odor after Cleansing No -Bioengineered Tissue No -Bleeding Controlled with Pressure -Treatment Response Procedure Tolerated Well #3 Right Moura -Time 12:15 -Correct Patient Yes -Correct Side, Site, Position Yes -Correct Procedure Yes -Procedure Performed Yes -Type of Procedure Debridement -Clinical Debridement Muscle -Post Debridement Size (cm) - Length 16.5 -Post Debridement Size (cm) - Width 5.0 -Post Debridement Size (cm) - Depth 0.5 -Total Square Cm 82.50 -Wound/Ulcer Outcome Not Healed -Ulcer Cleansing Rinsed/ Irrigated with Saline -Foul Odor after Cleansing No -Bioengineered Tissue No -Bleeding Controlled with Pressure -Treatment Response Procedure Tolerated Well #2 Left Lateral Forarm -Time 12:15 -Correct Patient Yes -Correct Side, Site, Position Yes -Correct Procedure Yes -Procedure Performed No -Post Debridement Size (cm) - Length 7.5 -Post Debridement Size (cm) - Width 3.8 -Post Debridement Size (cm) - Depth 0.3 -Total Square Cm 28.50 -Wound/Ulcer Outcome Not Healed -Ulcer Cleansing Not Cleansed -Foul Odor after Cleansing No -Type of bioengineered Tissue Apligraf -Bleeding Controlled with Pressure -Treatment Response Procedure Tolerated Well #1 Right Lateral Forearm -Time 12:15 -Correct Patient Yes -Correct Side, Site, Position Yes -Correct Procedure Yes -Procedure Performed Yes -Type of Procedure Debridement -Clinical Debridement Subcutaneous -Post Debridement Size (cm) - Length 9.0 -Post Debridement Size (cm) - Width 4.0 -Post Debridement Size (cm) - Depth 0.5 -Total Square Cm 36.00 -Wound/Ulcer Outcome Not Healed -Ulcer Cleansing Rinsed/ Irrigated with Saline -Foul Odor after Cleansing No -Bioengineered Tissue No -Bleeding Controlled with Pressure -Treatment Response Procedure Tolerated Well Pain Scale: 0-10 Numeric Is Patient Pain Free? Yes Wound debrided: Right moura cluster Laterality: Right Type of Debridement: Excisional debridement Anesthesia Used: 5% Lidocaine Gel Depth: Down to and including healthy tissue, in the subcutaneous layer Percentage of wound debrided: 100 Instrument Used: 7mm curette, #15 blade, Forceps Tissue Removed: Slough vitalized tissue Severity: Fat Layer Exposed Amount of bleeding with debridement: Mild Bleeding Controlled with: Compression and gauze Patient tolerated procedure well - Additional Wound Wound debrided: L moura cluster Type of Debridement: Excisional debridement Anesthesia Used: 5% Lidocaine Gel Depth: Down to and including healthy tissue, in the subcutaneous layer Percentage of wound debrided: 100 Instrument Used: 5mm curette, #15 blade, Forceps Tissue Removed: Slough and devitalized tissue Severity: Limited To Skin Breakdown Amount of bleeding with debridement: Mild Bleeding Controlled with: Compression and gauze Patient tolerated procedure: Patient tolerated procedure well - Additional Wound Wound debrided: Right forearm Tissue Removed: debridement no - Additional Wound Wound debrided: Forearm Laterality: Left Tissue Removed: No debridement Assessment/Plan Cultures obtained from wounds labs CBC with differential and pre-albumin Active Problems Infected open wound (Acute) Malnutrition (Acute) Assessment: Heroin addiction. Open abscess bilateral forearms. Abscesses bilateral shins. Infection of ulcers. Edema hands and feet Plan: Wash bilateral arms from axilla to fingertips and scrub nails with Hibiclens. Wash bilateral legs from thighs to toes with Hibiclens. Apply Santyl nickel thickness to all open wounds cover with gauze Winston. Tubigrip's double layer to bilateral lower legs and. Goyo wrap when not at work 2 inch to right arm up to mid humerus. Start Bactrim DS 1 p.o. twice daily for 10 days. Start metronidazole 250 mg 1 p.o. 3 times daily for 10 days. Follow-up one week
[2017-09-22 14:43] LABS: Absolute Lymphocyte Count 1.75 X10^3/ul (0.83-4.51); Absolute Neutrophil Count 5.2 X10^3/uL (2.0-7.7); Basophil# 0.02 X10^3/uL; Basophil% 0.3 % (0-1); Eosinophil# 0.14 X10^3/uL; Eosinophils% 1.9 % (0-5); Lymphocyte # 1.75 X10^3/ul (4.0); Lymphocyte % 23.2 % (19-41); Mean Corp Hgb Conc 30.6 g/gl (32-36); Mean Corpuscular Hgb 22.8 pg (27.0-32.0); Mean Corpuscular Volume 74.5 fL (81-99); Mean Platelet Vol. 9.4 fl (6.2-12.0); Monocyte# 0.37 X10^3/uL; Monocyte% 4.9 % (0-10); Neutrophil # 5.23 X10^3/uL (2.7-7.7); Neutrophil % 69.4 % (47-70); Platelet Count 275 K/mm3 (150-450); RBC Distribution Width CV 16.3 % (11.6-14.6); RBC Distribution Width SD 44.8 fl (35.1-43.9); Red Blood Count 4.83 M/mm3 (4.2-5.4); White Blood Count 7.5 K/mm3 (4.4-11.0)
[2017-09-22 14:44] LABS: Differential Indicated SCAN CRITERIA MET; POSITIVE COUNT NO; POSITIVE DIFFERENTIAL NO; POSITIVE MORPHOLOGY YES
[2017-09-22 15:19] LABS: ALB/GLOB Ratio 0.8 RATIO (0.9-2.4); AST(SGOT) 11 U/L (15-37); Alanine Aminotransfer ALT/SGPT 30 U/L (13-56); Albumin, Serum 3.2 g/dL (3.2-5.0); Alkaline Phosphatase 124 U/L (45-117); Anion Gap 4 (5-15); Anisocytosis 1+; BUN 8 mg/dL (7-18); BUN/Creat Ratio 16.1 RATIO (10-20); Calcium,Total 8.9 mg/dL (8.5-10.1); Chloride 109 mmol/L (98-107); EST Glomerular Filtration Rate 141 mL/min (>60); Est Glom Filt Rate - Afr Amer 170 mL/min (>60); Estimated Creatinine Clearance 99.91 ml/min; Globulin 3.9 g/dL (2.2-4.2); Glucose 98 mg/dL (74-106); Microcytosis 1+; Potassium 3.7 mmol/L (3.5-5.1); Prealbumin 10.4 mg/dL (20.0-40.0); Protein, Total 7.1 g/dL (6.4-8.2); Sodium Level 142 mmol/L (136-145)
== END 2017-10-09 23:59 ==
LOC: WC 09:00
PROVIDERS: Visit Provider Nurse Practitioner
DX: L02.414 Cutaneous abscess of left upper limb (principal); L02.413 Cutaneous abscess of right upper limb; L02.416 Cutaneous abscess of left lower limb; L02.415 Cutaneous abscess of right lower limb; F11.20 Opioid dependence, uncomplicated; F17.200 Nicotine dependence, unspecified, uncomplicated; L08.9 Local infection of the skin and subcutaneous tissue, unspecified; S81.832A Puncture wound without foreign body, left lower leg, initial encounter; S81.831A Puncture wound without foreign body, right lower leg, initial encounter; S51.832A Puncture wound without foreign body of left forearm, initial encounter; S51.831A Puncture wound without foreign body of right forearm, initial encounter; W46.0XXA Contact with hypodermic needle, initial encounter
CPT/HCPCS: 11043; 11046; 36415; 80053; 84134; 85025; 87070; 87075; 87077; 87186; 87205; 99203; G0463

== ENCOUNTER 2017-11-03 13:00 | Outpatient (RCR) | payer MEDICAID, SELFPAY ==
[2017-10-10 01:11] VITALS: PULSE 80; RESP 18; TEMP 36.2
[2017-10-13 12:32] VITALS: BP 111/67; PULSE 91; RESP 16; TEMP 36
--- NOTE | 2017-10-16 13:10 | PN.PCM_ITS ---
(1) Anemia Status: Acute Current Visit: No Qualifiers: Anemia type: iron deficiency Code(s): D64.9 - Anemia, unspecified (2) Infected open wound Status: Acute Current Visit: No Code(s): T14.8XXA - Other injury of unspecified body region, initial encounter; L08.9 - Local infection of the skin and subcutaneous tissue, unspecified (3) Malnutrition Status: Acute Current Visit: No Qualifiers: Malnutrition type: protein-calorie malnutrition Code(s): E46 - Unspecified protein-calorie malnutrition (4) Opiate withdrawal Status: Acute Current Visit: No Code(s): F11.23 - Opioid dependence with withdrawal Type of Wound Date of Service: 10/27/17 Chief Complaint: Follow-up open abscesses bilateral forearms and bilateral shins. History of Wound: 46-year-old white female with a history of drug abuse has been on a binge of heroin for the last 8 months. She is now in drug rehab and has developed abscesses on both bilateral forearms and shins from injection sites. Patient appears with malnutrition and open wounds with yellow crusted and black eschar in the centers of some of the wounds. Patient works full-time at [employer] and the only reason she stopped using was because all of her children have been taken away from her and is unable to see her grandchild because they have denied her. We will start with as much debridement as possible she shows a lot of eschar on the forearms we will try using Santyl and sharps debridements as much as tolerates. Refer to surgery for a consult for cleaning. Time get patient started on antibiotics and antimicrobials and diet increasing meats and proteins. Progress of Wound: Patient has not shown up for 2 weeks. She marie been taking the antibiotics and is using the Santyl also. The wound look better was easier to wipe the slough out and patient tolerating the debridement better today.Reinforced the importance for her to return weekly visits.Discussed her anemia and the improtance of protein supplementation for wound healing. - Physical Exam Vital Signs Temp Pulse Resp BP 96.8 F L 91 16 111/67 10/13/17 12:32 10/13/17 12:32 10/13/17 12:32 10/13/17 12:32 General: Oriented x3, Cooperative, Well developed HEENT: Atraumatic, PERRLA Oral: Moist Mucosa Neck: Supple, No JVD Lungs: Clear to auscultation, Normal air movement Cardiovascular: Regular rate, Regular Rhythm Abdomen: Bowel Sounds Present, Soft, Non Tender, No Hepato-splenomegaly Extremities: No clubbing, No edema, - - open ulcers on bilat forearms and shins Wound Measurements and Assessment WC - Nurse 1 - General Ulcer Measurement Start: 10/13/17 12:32 Freq: Status: Active Protocol: Activity Type Activity Date Activity User E-Sign Co-Sign Detail Recorded Client Recorded Date Recorded By Document 10/13/17 12:32 [facility] [id number] 10/13/17 12:47 [facility] 10/13/17 12:32 Wound Center Nurse 1 [Ulcer Assessment] #4 Left Moura -Combined with other wound No -Current Size (cm) - Length 14.6 -Current Size (cm) - Width 4.9 -Current Size (cm) - Depth 0.3 -Total Square Cm 71.54 -Photo Taken No -Epithelialization None Present -Tunneling No -Undermining/Tunneling No -Circular Undermining No -Exudate Amt Medium (34-66%) -Exudate Type Serous -Wound Margin Distinct, Outline Attached -Granulation Amt Small (1-33%) -Granulation Quality Red -Slough/Fibrin Yes -Necrosis Amt Large (67-100%) -Necrotic Tissue Type Adherent Slough -Structure Exposed N/A -Texture (Ana-wound Skin Appearance) Scarring -Moisture (Ana-wound Skin Appearance Assessed ) -Color (Ana-wound Skin Appearance) Assessed -Temperature (Ana-wound Skin No Abnormality Appearance) (Pt Warm) -Tenderness on Palpation (Ana-wound No Skin Appearance) -Ulcer Cleansing Rinsed/ Irrigated with Saline -Foul Odor after Cleansing No -Anesthetic Used 4% Lidocaine Solution #3 Right Moura -Combined with other wound No -Current Size (cm) - Length 14.7 -Current Size (cm) - Width 4.5 -Current Size (cm) - Depth 0.3 -Total Square Cm 66.15 -Photo Taken No -Epithelialization None Present -Tunneling No -Undermining/Tunneling No -Circular Undermining No -Exudate Amt Medium (34-66%) -Exudate Type Serosanguineous -Wound Margin Distinct, Outline Attached -Granulation Amt None Present (0 %) -Slough/Fibrin Yes -Necrosis Amt Large (67-100%) -Necrotic Tissue Type Adherent Slough -Structure Exposed N/A -Texture (Ana-wound Skin Appearance) Scarring -Moisture (Ana-wound Skin Appearance Assessed ) -Color (Ana-wound Skin Appearance) Assessed -Temperature (Ana-wound Skin No Abnormality Appearance) (Pt Warm) -Tenderness on Palpation (Ana-wound No Skin Appearance) -Ulcer Cleansing Rinsed/ Irrigated with Saline -Foul Odor after Cleansing No -Anesthetic Used 4% Lidocaine Solution #2 Left Lateral Forarm -Combined with other wound No -Current Size (cm) - Length 4.4 -Current Size (cm) - Width 2.3 -Current Size (cm) - Depth 0.2 -Total Square Cm 10.12 -Photo Taken No -Epithelialization Small 1-33% -Tunneling No -Undermining/Tunneling No -Circular Undermining No -Exudate Amt Medium (34-66%) -Exudate Type Serosanguineous -Wound Margin Distinct, Outline Attached -Granulation Amt None Present (0 %) -Slough/Fibrin Yes -Necrosis Amt Large (67-100%) -Necrotic Tissue Type Adherent Slough -Structure Exposed N/A -Texture (Ana-wound Skin Appearance) Scarring -Moisture (Ana-wound Skin Appearance Assessed ) -Color (Ana-wound Skin Appearance) Assessed -Temperature (Ana-wound Skin No Abnormality Appearance) (Pt Warm) -Tenderness on Palpation (Ana-wound No Skin Appearance) -Ulcer Cleansing Rinsed/ Irrigated with Saline -Foul Odor after Cleansing No -Anesthetic Used 4% Lidocaine Solution #1 Right Lateral Forearm -Combined with other wound No -Current Size (cm) - Length 8 -Current Size (cm) - Width 2.8 -Current Size (cm) - Depth 0.2 -Total Square Cm 22.4 -Photo Taken No -Epithelialization Small 1-33% -Tunneling No -Undermining/Tunneling No -Circular Undermining No -Exudate Amt Medium (34-66%) -Exudate Type Serosanguineous -Wound Margin Distinct, Outline Attached -Granulation Amt Small (1-33%) -Granulation Quality [place] -Slough/Fibrin Yes -Necrosis Amt Large (67-100%) -Necrotic Tissue Type Eschar -Structure Exposed N/A -Texture (Ana-wound Skin Appearance) Scarring -Moisture (Ana-wound Skin Appearance Assessed ) -Color (Ana-wound Skin Appearance) Assessed -Temperature (Ana-wound Skin No Abnormality Appearance) (Pt Warm) -Tenderness on Palpation (Ana-wound No Skin Appearance) -Ulcer Cleansing Rinsed/ Irrigated with Saline -Foul Odor after Cleansing No -Anesthetic Used 4% Lidocaine Solution WC - Nurse 2 - General Ulcer CM Notes Start: 10/13/17 12:32 Freq: Status: Active Protocol: Activity Type Activity Date Activity User E-Sign Co-Sign Detail Recorded Client Recorded Date Recorded By Document 10/13/17 13:10 [facility] [id number] 10/13/17 13:28 [facility] 10/13/17 13:10 Wound Center Nurse 2 [Procedure/Treatment] #4 Left Moura -Time 13:10 -Correct Patient Yes -Correct Side, Site, Position Yes -Correct Procedure Yes -Procedure Performed Yes -Type of Procedure Debridement -Clinical Debridement Subcutaneous -Post Debridement Size (cm) - Length 14.5 -Post Debridement Size (cm) - Width 1.3 -Post Debridement Size (cm) - Depth 0.3 -Total Square Cm 18.85 -Wound/Ulcer Outcome Not Healed -Ulcer Cleansing Rinsed/ Irrigated with Saline -Foul Odor after Cleansing No -Bioengineered Tissue No -Topical Lidocaine (%) 4 -Lidocaine (ml) 20 -Bleeding Controlled with NA -Treatment Response Procedure Tolerated Well #3 Right Moura -Time 13:11 -Correct Patient Yes -Correct Side, Site, Position Yes -Correct Procedure Yes -Procedure Performed Yes -Type of Procedure Debridement -Clinical Debridement Subcutaneous -Post Debridement Size (cm) - Length 6.8 -Post Debridement Size (cm) - Width 1.2 -Post Debridement Size (cm) - Depth 0.3 -Total Square Cm 8.16 -Wound/Ulcer Outcome Not Healed -Ulcer Cleansing Rinsed/ Irrigated with Saline -Foul Odor after Cleansing No -Bioengineered Tissue No -Topical Lidocaine (%) 4 -Lidocaine (ml) 20 -Bleeding Controlled with NA -Treatment Response Procedure Tolerated Well #2 Left Lateral Forarm -Time 13:12 -Correct Patient Yes -Correct Side, Site, Position Yes -Correct Procedure Yes -Procedure Performed Yes -Type of Procedure Debridement -Clinical Debridement Subcutaneous -Post Debridement Size (cm) - Length 4.3 -Post Debridement Size (cm) - Width 2.2 -Post Debridement Size (cm) - Depth 0.2 -Total Square Cm 9.46 -Wound/Ulcer Outcome Not Healed #1 Right Lateral Forearm -Time 13:12 -Correct Patient Yes -Correct Side, Site, Position Yes -Correct Procedure Yes -Procedure Performed Yes -Type of Procedure Debridement -Clinical Debridement Subcutaneous -Post Debridement Size (cm) - Length 4.3 -Post Debridement Size (cm) - Width 2.2 -Post Debridement Size (cm) - Depth 0.2 -Total Square Cm 9.46 -Wound/Ulcer Outcome Not Healed -Ulcer Cleansing Rinsed/ Irrigated with Saline -Foul Odor after Cleansing No -Bioengineered Tissue No -Topical Lidocaine (%) 4 -Lidocaine (ml) 15 -Bleeding Controlled with NA -Treatment Response Procedure Tolerated Well [See Physician Procedure note for Specifics] Pain Scale: 0-10 Numeric [Pain] -Is Patient Pain Free? Yes Musculoskeletal: No Tenderness to Palpation of Joints or Extremities Lymphatic: No Cervical, Supraclavicular, or Inguinal Adenopathy Neurological: Cranial nerves II-XII grossly intact, Neuro grossly intact Psych/Mental Status: Normal Affect, Appropriate, Alert and oriented to time, place, person, mood and affect Debridement Note Post-Debridement Measurements/Treatment WC - Nurse 2 - General Ulcer CM Notes Start: 10/13/17 12:32 Freq: Status: Active Protocol: Activity Type Activity Date Activity User E-Sign Co-Sign Detail Recorded Client Recorded Date Recorded By Document 10/13/17 13:10 [facility] [id number] 10/13/17 13:28 [facility] 10/13/17 13:10 Wound Center Nurse 2 #4 Left Moura -Time 13:10 -Correct Patient Yes -Correct Side, Site, Position Yes -Correct Procedure Yes -Procedure Performed Yes -Type of Procedure Debridement -Clinical Debridement Subcutaneous -Post Debridement Size (cm) - Length 14.5 -Post Debridement Size (cm) - Width 1.3 -Post Debridement Size (cm) - Depth 0.3 -Total Square Cm 18.85 -Wound/Ulcer Outcome Not Healed -Ulcer Cleansing Rinsed/ Irrigated with Saline -Foul Odor after Cleansing No -Bioengineered Tissue No -Topical Lidocaine (%) 4 -Lidocaine (ml) 20 -Bleeding Controlled with NA -Treatment Response Procedure Tolerated Well #3 Right Moura -Time 13:11 -Correct Patient Yes -Correct Side, Site, Position Yes -Correct Procedure Yes -Procedure Performed Yes -Type of Procedure Debridement -Clinical Debridement Subcutaneous -Post Debridement Size (cm) - Length 6.8 -Post Debridement Size (cm) - Width 1.2 -Post Debridement Size (cm) - Depth 0.3 -Total Square Cm 8.16 -Wound/Ulcer Outcome Not Healed -Ulcer Cleansing Rinsed/ Irrigated with Saline -Foul Odor after Cleansing No -Bioengineered Tissue No -Topical Lidocaine (%) 4 -Lidocaine (ml) 20 -Bleeding Controlled with NA -Treatment Response Procedure Tolerated Well #2 Left Lateral Forarm -Time 13:12 -Correct Patient Yes -Correct Side, Site, Position Yes -Correct Procedure Yes -Procedure Performed Yes -Type of Procedure Debridement -Clinical Debridement Subcutaneous -Post Debridement Size (cm) - Length 4.3 -Post Debridement Size (cm) - Width 2.2 -Post Debridement Size (cm) - Depth 0.2 -Total Square Cm 9.46 -Wound/Ulcer Outcome Not Healed #1 Right Lateral Forearm -Time 13:12 -Correct Patient Yes -Correct Side, Site, Position Yes -Correct Procedure Yes -Procedure Performed Yes -Type of Procedure Debridement -Clinical Debridement Subcutaneous -Post Debridement Size (cm) - Length 4.3 -Post Debridement Size (cm) - Width 2.2 -Post Debridement Size (cm) - Depth 0.2 -Total Square Cm 9.46 -Wound/Ulcer Outcome Not Healed -Ulcer Cleansing Rinsed/ Irrigated with Saline -Foul Odor after Cleansing No -Bioengineered Tissue No -Topical Lidocaine (%) 4 -Lidocaine (ml) 15 -Bleeding Controlled with NA -Treatment Response Procedure Tolerated Well Pain Scale: 0-10 Numeric Is Patient Pain Free? Yes Wound debrided: R forearm Type of Debridement: Excisional debridement Anesthesia Used: 5% Lidocaine Gel Depth: Down to and including healthy tissue, in the subcutaneous layer Percentage of wound debrided: 100 Instrument Used: 5mm curette, #15 blade Tissue Removed: slough and devitalized tissue Severity: Fat Layer Exposed - necrotic tissue removed by sharps Amount of bleeding with debridement: Mild Bleeding Controlled with: Compression and gauze Patient tolerated procedure well - Additional Wound Wound debrided: L forearm Type of Debridement: Excisional debridement Depth: Down to and including healthy tissue, in the subcutaneous layer Instrument Used: 5mm curette Tissue Removed: slough and devitalized tissue Severity: Limited To Skin Breakdown Bleeding Controlled with: Compression and gauze Patient tolerated procedure: Patient tolerated procedure well - Additional Wound Wound debrided: R moura Type of Debridement: Excisional debridement Anesthesia Used: 5% Lidocaine Gel Depth: Down to and including healthy tissue, in the subcutaneous layer Instrument Used: 5mm curette, #15 blade, Forceps Tissue Removed: slough and devitalized tissues Severity: Limited To Skin Breakdown Amount of bleeding with debridement: Mild Bleeding Controlled with: Compression and gauze Patient tolerated procedure: Patient tolerated procedure well - Additional Wound Wound debrided: L moura Type of Debridement: Excisional debridement Anesthesia Used: 5% Lidocaine Gel Depth: Down to and including healthy tissue, in the subcutaneous layer Percentage of wound debrided: 100 Instrument Used: 5mm curette, #15 blade, Forceps Tissue Removed: deviatlized tissue and slough Severity: Limited To Skin Breakdown Amount of bleeding with debridement: Mild Bleeding Controlled with: Compression and gauze Patient tolerated procedure: Patient tolerated procedure well Assessment/Plan Assessment: Heroin addiction. Open abscess bilateral forearms. Abscesses bilateral shins. Infection of ulcers. Edema hands and feet. malnutrition. anemia Plan: Wash bilateral arms from axilla to fingertips and scrub nails with Hibiclens. Wash bilateral legs from thighs to toes with Hibiclens. Apply Santyl nickel thickness to all open wounds cover with gauze [place]. Tubigrip's double layer to bilateral lower legs and. Goyo wrap when not at work 2 inch to right arm up to mid humerus. Start Bactrim DS 1 p.o. twice daily for 10 days. Start metronidazole 250 mg 1 p.o. 3 times daily for 10 days. Follow-up one week
--- NOTE | 2017-11-03 14:33 | PCM.WC.PN ---
(1) Anemia Status: Acute Current Visit: No Qualifiers: Anemia type: iron deficiency Code(s): D64.9 - Anemia, unspecified (2) Infected open wound Status: Acute Current Visit: Yes Code(s): T14.8XXA - Other injury of unspecified body region, initial encounter; L08.9 - Local infection of the skin and subcutaneous tissue, unspecified (3) Malnutrition Status: Acute Current Visit: Yes Qualifiers: Malnutrition type: protein-calorie malnutrition Code(s): E46 - Unspecified protein-calorie malnutrition (4) Opiate withdrawal Status: Acute Current Visit: Yes Code(s): F11.23 - Opioid dependence with withdrawal (5) Nonhealing ulcer of upper extremity with fat layer exposed Status: Acute Current Visit: Yes Code(s): L98.492 - Non-pressure chronic ulcer of skin of other sites with fat layer exposed (6) Nonhealing ulcer of lower extremity with fat layer exposed Status: Acute Current Visit: Yes Code(s): L97.902 - Non-pressure chronic ulcer of unspecified part of unspecified lower leg with fat layer exposed Type of Wound Date of Service: 11/03/17 Chief Complaint: Follow-up open abscesses bilateral forearms and bilateral shins. History of Wound: 46-year-old white female with a history of drug abuse has been on a binge of heroin for the last 8 months. She is now in drug rehab and has developed abscesses on both bilateral forearms and shins from injection sites. Patient appears with malnutrition and open wounds with yellow crusted and black eschar in the centers of some of the wounds. Patient works full-time at [employer] and the only reason she stopped using was because all of her children have been taken away from her and is unable to see her grandchild because they have denied her. We will start with as much debridement as possible she shows a lot of eschar on the forearms we will try using Santyl and sharps debridements as much as tolerates. Refer to surgery for a consult for cleaning. Time get patient started on antibiotics and antimicrobials and diet increasing meats and proteins. Progress of Wound: Not been here for about a month. Patient has been continually using the Santyl even though she has not been Patient has developed a severe infection in the wounds because of the cellulitis that has developed around in the tenderness and she is running fevers. Patient's abscesses on her forearms inferior side are also starting to bulge and you can tell there infected also. Patient states she still not using but appears ill. - Physical Exam Vital Signs Temp Pulse Resp BP 96.8 F L 91 16 111/67 10/13/17 12:32 10/13/17 12:32 10/13/17 12:32 10/13/17 12:32 General: Oriented x3, Cooperative, - - Frail HEENT: Atraumatic, PERRLA Oral: Moist Mucosa Neck: Supple, No JVD Lungs: Clear to auscultation, Normal air movement Cardiovascular: Regular rate, Regular Rhythm Abdomen: Bowel Sounds Present, Soft, Non Tender, No Hepato-splenomegaly Extremities: No clubbing, No edema, Edema Skin: Ulcer/ Wound - Bilateral forearms and bilateral moura area Wound Measurements and Assessment WC - Nurse 1 - General Ulcer Measurement Start: 10/13/17 12:32 Freq: Status: Active Protocol: Activity Type Activity Date Activity User E-Sign Co-Sign Detail Recorded Client Recorded Date Recorded By Document 11/03/17 13:14 DV [id number] 11/03/17 13:36 DV 11/03/17 13:14 Wound Center Nurse 1 [Ulcer Assessment] #4 Left Moura -Combined with other wound No -Current Size (cm) - Length 13 -Current Size (cm) - Width 4.2 -Current Size (cm) - Depth 0.2 -Total Square Cm 54.6 -Date of Last Picture (Recall this 11/03/17 field) -Photo Taken Yes -Epithelialization Small 1-33% -Tunneling No -Undermining/Tunneling No -Circular Undermining No -Classification - Thickness Full Thickness without Exposed Support Structure -Exudate Amt Small (1-33%) -Exudate Type Serosanguineous -Wound Margin Distinct, Outline Attached -Granulation Amt Small (1-33%) -Granulation Quality Red -Slough/Fibrin Yes -Necrosis Amt Large (67-100%) -Necrotic Tissue Type Adherent Slough -Texture (Ana-wound Skin Appearance) Scarring -Moisture (Ana-wound Skin Appearance Assessed ) -Color (Ana-wound Skin Appearance) Erythema -Temperature (Ana-wound Skin No Abnormality Appearance) (Pt Warm) -Tenderness on Palpation (Ana-wound Yes Skin Appearance) -Ulcer Cleansing Rinsed/ Irrigated with Saline -Foul Odor after Cleansing No -Anesthetic Used 5% Lidocaine Gel #3 Right Moura -Combined with other wound No -Current Size (cm) - Length 13.0 -Current Size (cm) - Width 6.0 -Current Size (cm) - Depth 0.4 -Total Square Cm 78.00 -Photo Taken Yes -Epithelialization Medium 34-66% -Tunneling No -Undermining/Tunneling No -Circular Undermining No -Classification - Thickness Full Thickness without Exposed Support Structure -Exudate Amt Small (1-33%) -Exudate Type Serosanguineous -Wound Margin Indistinct, Non -Visible -Granulation Amt None Present (0 %) -Granulation Quality N/A -Slough/Fibrin Yes -Necrosis Amt Large (67-100%) -Necrotic Tissue Type Adherent Slough -Structure Exposed None/Limited to Skin Breakdown -Texture (Ana-wound Skin Appearance) Assessed Localized Edema Scarring -Moisture (Ana-wound Skin Appearance Assessed ) Weeping -Color (Ana-wound Skin Appearance) Assessed Erythema -Temperature (Ana-wound Skin No Abnormality Appearance) (Pt Warm) -Ulcer Cleansing Rinsed/ Irrigated with Saline -Foul Odor after Cleansing No -Anesthetic Used 5% Lidocaine Gel #2 Left Lateral Forarm -Combined with other wound No -Current Size (cm) - Length 6.0 -Current Size (cm) - Width 5.0 -Current Size (cm) - Depth 0.3 -Total Square Cm 30.00 -Photo Taken Yes -Epithelialization Medium 34-66% -Tunneling No -Undermining/Tunneling No -Classification - Thickness Full Thickness without Exposed Support Structure -Exudate Amt Small (1-33%) -Exudate Type Serosanguineous -Wound Margin Distinct, Outline Attached -Granulation Amt None Present (0 %) -Granulation Quality N/A -Slough/Fibrin Yes -Necrosis Amt Large (67-100%) -Necrotic Tissue Type Adherent Slough -Structure Exposed None/Limited to Skin Breakdown -Texture (Ana-wound Skin Appearance) Assessed Induration Localized Edema Scarring -Moisture (Naa-wound Skin Appearance Assessed ) Weeping -Color (Ana-wound Skin Appearance) Assessed Erythema -Anesthetic Used 5% Lidocaine Gel #1 Right Lateral Forearm -Combined with other wound No -Current Size (cm) - Length 8.0 -Current Size (cm) - Width 5.5 -Current Size (cm) - Depth 0.3 -Total Square Cm 44.00 -Date of Last Picture (Recall this 11/03/17 field) -Photo Taken Yes -Epithelialization Medium 34-66% -Classification - Thickness Full Thickness without Exposed Support Structure -Exudate Amt Small (1-33%) -Exudate Type Serosanguineous -Wound Margin Distinct, Outline Attached -Granulation Amt None Present (0 %) -Granulation Quality N/A -Slough/Fibrin Yes -Necrosis Amt Large (67-100%) -Necrotic Tissue Type Adherent Slough -Structure Exposed None/Limited to Skin Breakdown -Texture (Ana-wound Skin Appearance) Assessed Localized Edema Scarring -Moisture (Ana-wound Skin Appearance Assessed ) Weeping -Color (Ana-wound Skin Appearance) Assessed Erythema -Temperature (Ana-wound Skin No Abnormality Appearance) (Pt Warm) -Ulcer Cleansing Rinsed/ Irrigated with Saline -Foul Odor after Cleansing No -Anesthetic Used 5% Lidocaine Gel [Edema Assessment] -Lower Limb Edema Present No WC - Nurse 2 - General Ulcer CM Notes Start: 10/13/17 12:32 Freq: Status: Active Protocol: Activity Type Activity Date Activity User E-Sign Co-Sign Detail Recorded Client Recorded Date Recorded By Document 11/03/17 13:53 DV [id number] 11/03/17 13:59 DV 11/03/17 13:53 Wound Center Nurse 2 [Procedure/Treatment] #4 Left Moura -Time 13:54 -Correct Patient Yes -Correct Side, Site, Position Yes -Correct Procedure Yes -Procedure Performed Yes -Type of Procedure Debridement -Clinical Debridement Subcutaneous -Post Debridement Size (cm) - Length 13.4 -Post Debridement Size (cm) - Width 5.0 -Post Debridement Size (cm) - Depth 0.3 -Total Square Cm 67.00 -Wound/Ulcer Outcome Not Healed #3 Right Moura -Time 13:55 -Correct Patient Yes -Correct Side, Site, Position Yes -Correct Procedure Yes -Procedure Performed Yes -Type of Procedure Debridement -Clinical Debridement Subcutaneous -Post Debridement Size (cm) - Length 12.9 -Post Debridement Size (cm) - Width 3.0 -Post Debridement Size (cm) - Depth 0.3 -Total Square Cm 38.70 -Wound/Ulcer Outcome Not Healed #2 Left Lateral Forarm -Time 13:57 -Correct Patient Yes -Correct Side, Site, Position Yes -Correct Procedure Yes -Procedure Performed Yes -Type of Procedure Debridement -Clinical Debridement Subcutaneous -Post Debridement Size (cm) - Length 5.2 -Post Debridement Size (cm) - Width 5.0 -Post Debridement Size (cm) - Depth 0.3 -Total Square Cm 26.00 -Wound/Ulcer Outcome Not Healed -Ulcer Cleansing Rinsed/ Irrigated with Saline -Foul Odor after Cleansing No -Bioengineered Tissue No #1 Right Lateral Forearm -Time 13:56 -Correct Patient Yes -Correct Side, Site, Position Yes -Correct Procedure Yes -Procedure Performed Yes -Type of Procedure Debridement -Clinical Debridement Subcutaneous -Post Debridement Size (cm) - Length 6.0 -Post Debridement Size (cm) - Width 5.4 -Post Debridement Size (cm) - Depth 0.2 -Total Square Cm 32.40 -Wound/Ulcer Outcome Not Healed [See Physician Procedure note for Specifics] Musculoskeletal: No Tenderness to Palpation of Joints or Extremities Lymphatic: No Cervical, Supraclavicular, or Inguinal Adenopathy Neurological: Cranial nerves II-XII grossly intact, Neuro grossly intact Psych/Mental Status: Normal Affect, Appropriate, Alert and oriented to time, place, person, mood and affect Debridement Note Post-Debridement Measurements/Treatment WC - Nurse 2 - General Ulcer CM Notes Start: 10/13/17 12:32 Freq: Status: Active Protocol: Activity Type Activity Date Activity User E-Sign Co-Sign Detail Recorded Client Recorded Date Recorded By Document 10/13/17 13:10 [id number] 10/13/17 13:28 JS Document 11/03/17 13:53 DV [id number] 11/03/17 13:59 DV 10/13/17 11/03/17 13:10 13:53 Wound Center Nurse 2 #4 Left Moura -Time 13:10 13:54 -Correct Patient Yes Yes -Correct Side, Site, Position Yes Yes -Correct Procedure Yes Yes -Procedure Performed Yes Yes -Type of Procedure Debridement Debridement -Clinical Debridement Subcutaneous Subcutaneous -Post Debridement Size (cm) - Length 14.5 13.4 -Post Debridement Size (cm) - Width 1.3 5.0 -Post Debridement Size (cm) - Depth 0.3 0.3 -Total Square Cm 18.85 67.00 -Wound/Ulcer Outcome Not Healed Not Healed -Ulcer Cleansing Rinsed/ Irrigated with Saline -Foul Odor after Cleansing No -Bioengineered Tissue No -Topical Lidocaine (%) 4 -Lidocaine (ml) 20 -Bleeding Controlled with NA -Treatment Response Procedure Tolerated Well #3 Right Moura -Time 13:11 13:55 -Correct Patient Yes Yes -Correct Side, Site, Position Yes Yes -Correct Procedure Yes Yes -Procedure Performed Yes Yes -Type of Procedure Debridement Debridement -Clinical Debridement Subcutaneous Subcutaneous -Post Debridement Size (cm) - Length 6.8 12.9 -Post Debridement Size (cm) - Width 1.2 3.0 -Post Debridement Size (cm) - Depth 0.3 0.3 -Total Square Cm 8.16 38.70 -Wound/Ulcer Outcome Not Healed Not Healed -Ulcer Cleansing Rinsed/ Irrigated with Saline -Foul Odor after Cleansing No -Bioengineered Tissue No -Topical Lidocaine (%) 4 -Lidocaine (ml) 20 -Bleeding Controlled with NA -Treatment Response Procedure Tolerated Well #2 Left Lateral Forarm -Time 13:12 13:57 -Correct Patient Yes Yes -Correct Side, Site, Position Yes Yes -Correct Procedure Yes Yes -Procedure Performed Yes Yes -Type of Procedure Debridement Debridement -Clinical Debridement Subcutaneous Subcutaneous -Post Debridement Size (cm) - Length 4.3 5.2 -Post Debridement Size (cm) - Width 2.2 5.0 -Post Debridement Size (cm) - Depth 0.2 0.3 -Total Square Cm 9.46 26.00 -Wound/Ulcer Outcome Not Healed Not Healed -Ulcer Cleansing Rinsed/ Irrigated with Saline -Foul Odor after Cleansing No -Bioengineered Tissue No #1 Right Lateral Forearm -Time 13:12 13:56 -Correct Patient Yes Yes -Correct Side, Site, Position Yes Yes -Correct Procedure Yes Yes -Procedure Performed Yes Yes -Type of Procedure Debridement Debridement -Clinical Debridement Subcutaneous Subcutaneous -Post Debridement Size (cm) - Length 4.3 6.0 -Post Debridement Size (cm) - Width 2.2 5.4 -Post Debridement Size (cm) - Depth 0.2 0.2 -Total Square Cm 9.46 32.40 -Wound/Ulcer Outcome Not Healed Not Healed -Ulcer Cleansing Rinsed/ Irrigated with Saline -Foul Odor after Cleansing No -Bioengineered Tissue No -Topical Lidocaine (%) 4 -Lidocaine (ml) 15 -Bleeding Controlled with NA -Treatment Response Procedure Tolerated Well Pain Scale: 0-10 Numeric Is Patient Pain Free? Yes Wound debrided: Forearm Laterality: Right Type of Debridement: Excisional debridement Anesthesia Used: 5% Lidocaine Gel Depth: Down to and including healthy tissue, in the subcutaneous layer Percentage of wound debrided: 100 Instrument Used: 5mm curette Tissue Removed: Slough fibrin Severity: Fat Layer Exposed Amount of bleeding with debridement: Mild Bleeding Controlled with: Compression and gauze Patient tolerated procedure well - Additional Wound Wound debrided: Forearm Laterality: Left Type of Debridement: Excisional debridement Anesthesia Used: 5% Lidocaine Gel Depth: Down to and including healthy tissue, in the subcutaneous layer Percentage of wound debrided: 100 Instrument Used: 5mm curette Tissue Removed: Slough and fibrin Severity: Fat Layer Exposed Amount of bleeding with debridement: Mild Bleeding Controlled with: Pressure Patient tolerated procedure: Patient tolerated procedure well - Additional Wound Wound debrided: Right lower moura Type of Debridement: Excisional debridement Anesthesia Used: 5% Lidocaine Gel Depth: Down to and including healthy tissue, in the subcutaneous layer Percentage of wound debrided: 100 Instrument Used: 5mm curette Tissue Removed: slough and fibrin Severity: Fat Layer Exposed Amount of bleeding with debridement: Mild Bleeding Controlled with: Compression and gauze Patient tolerated procedure: Patient tolerated procedure well - Additional Wound Wound debrided: Left lower leg moura Type of Debridement: Excisional debridement Anesthesia Used: 5% Lidocaine Gel Depth: Down to and including healthy tissue, in the subcutaneous layer Percentage of wound debrided: 100 Instrument Used: 5mm curette Tissue Removed: fibrin Severity: Limited To Skin Breakdown Amount of bleeding with debridement: Mild Bleeding Controlled with: Pressure Patient tolerated procedure: Patient tolerated procedure well Assessment/Plan Sure to wounds for anaerobes and aerobes Active Problems Opiate withdrawal (Acute) Infected open wound (Acute) Malnutrition (Acute) Nonhealing ulcer of upper extremity with fat layer exposed (Acute) Nonhealing ulcer of lower extremity with fat layer exposed (Acute) Assessment: Heroin addiction. Open abscess bilateral forearms. Abscesses bilateral shins. Infection of ulcers. Edema hands and feet. malnutrition. anemia Plan: Wash bilateral arms from axilla to fingertips and scrub nails with Hibiclens. Wash bilateral legs from thighs to toes with Hibiclens. Apply Santyl nickel thickness to all open wounds cover with gauze Winston. Tubigrip's double layer to bilateral lower legs and. Goyo wrap when not at work 2 inch to right arm up to mid humerus. Start Bactrim DS 1 p.o. twice daily for 10 days. Start metronidazole 250 mg 1 p.o. 3 times daily for 10 days. Will call with results of the cultures obtained. Follow-up one week
== END 2017-11-09 23:59 ==
LOC: WC 13:00
PROVIDERS: Visit Provider Nurse Practitioner
DX: L02.414 Cutaneous abscess of left upper limb (principal); L02.413 Cutaneous abscess of right upper limb; L02.416 Cutaneous abscess of left lower limb; L02.415 Cutaneous abscess of right lower limb; F17.200 Nicotine dependence, unspecified, uncomplicated; L08.9 Local infection of the skin and subcutaneous tissue, unspecified; D64.9 Anemia, unspecified; E46 Unspecified protein-calorie malnutrition; L98.492 Non-pressure chronic ulcer of skin of other sites with fat layer exposed; L97.902 Non-pressure chronic ulcer of unspecified part of unspecified lower leg with fat layer exposed; F11.23 Opioid dependence with withdrawal
CPT/HCPCS: 11042; 11045; 87070; 87075; 87205

== ENCOUNTER 2018-02-23 00:26 | Emergency (ER) | payer MEDICAID, SELFPAY ==
[2018-02-23 00:27] VITALS: BP 115/82; PULSE 100; RESP 18; TEMP 36.7; O2SAT 98; BMI 17.7
--- NOTE | 2018-02-23 01:01 | ED.DCSUM_ITS ---
- ER Visit Summary Date of Service: 02/23/18 Chief Complaint: Skin infection History of Present Illness: The patient is a 47 F with a history of bilateral moura ulcers. She follows with wound care and uses topical treatments. Over the last couple days she noted redness distal to the right moura ulcer. She also had some subjective fevers. She has a history of MRSA and cellulitis. No history of immune compromise. She has a remote history of heroin abuse. Physical Examination: Afebrile and vital signs unremarkable. Nontoxic and in no acute distress. Heart regular. Lungs clear. Bilateral shins show anterior ulcerations, superficial. On the right leg she has some distal erythema, distal to the ulcer but proximal to the right ankle. Neurovascularly intact distally. Achilles intact. She does have some tenderness to the area. No crepitus. No necrosis. Test Results: Not performed Emergency Department Course and Treatment: Patient is nontoxic. Vitals unremarkable. She is not currently on antibiotics. She has signs of cellulitis without any other complicating features. I believe she is appropriate for outpatient therapy with oral antibiotics. She was treated with Bactrim and Keflex. Motrin for pain. Follow-up with wound care. I advised her that this can spread or become worse. She can become septic. Monitor for spreading rash or any new or worsening symptoms. Return right away if they develop. Treatment Plan: As above Disposition: Discharged Impression: 1. Right leg cellulitis This note was generated with [employer] dictation software. It may contain incorrect words, spelling, and punctuation that were not noted in review of the chart prior to signing ED Disposition - Plan for ED Patient: Chief Complaint: Cellulitis Referrals: Belén Fall DO [Primary Care Provider] -
--- NOTE | 2018-02-23 01:01 | ED.DEP ---
ED Disposition - Plan for ED Patient: Chief Complaint: Cellulitis Instructions: Discharge Instructions for Cellulitis Prescriptions: Cephalexin [Keflex] 500 mg PO Q6 #28 cap Ibuprofen [Motrin] 800 mg PO TID PRN PRN #20 tab PRN Reason: Pain Smz/Tmp Ds [Bactrim Ds] 1 tab PO BID #14 tab Referrals: Belén Fall DO [Primary Care Provider] - Additional Instructions: follow up with your wound care doctor
[2018-02-23] MEDS: Cephalexin 250 MG Capsule 500 MG PO (01:19)
[2018-02-23] MEDS: Ibuprofen 600 MG Tablet PO (01:19)
[2018-02-23] MEDS: Smz/Tmp Ds Tablet 1 TABLET PO (01:20)
[2018-02-23 01:22] VITALS: BP 115/82; PULSE 100; RESP 18; O2SAT 98
== END 2018-02-23 01:23 | disposition home or self-care (01) ==
LOC: ED 01:07
PROVIDERS: Emergency Provider Emergency Medicine
DX: L03.115 Cellulitis of right lower limb (principal); Z86.14 Personal history of Methicillin resistant Staphylococcus aureus infection
CPT/HCPCS: 99283

== ENCOUNTER 2018-08-16 14:42 | Outpatient (RCR) | payer MEDICAID, SELFPAY ==
[2018-08-16 15:14] VITALS: BP 96/72; PULSE 88; RESP 16; TEMP 37; BMI 19.4
--- NOTE | 2018-08-16 17:01 | HP.PCM_ITS ---
(1) History of heroin abuse Status: Acute Current Visit: Yes Code(s): Z87.898 - Personal history of other specified conditions (2) Anemia Status: Acute Current Visit: No Code(s): D64.9 - Anemia, unspecified (3) Malnutrition Status: Acute Current Visit: Yes Code(s): E46 - Unspecified protein-calorie malnutrition (4) Nonhealing ulcer of lower extremity with fat layer exposed Status: Acute Current Visit: Yes Qualifiers: Laterality: right Qualified Code(s): L97.912 - Non-pressure chronic ulcer of unspecified part of right lower leg with fat layer exposed Code(s): L97.902 - Non-pressure chronic ulcer of unspecified part of unspecified lower leg with fat layer exposed (5) Nonhealing ulcer of upper extremity with fat layer exposed Status: Acute Current Visit: Yes Code(s): L98.492 - Non-pressure chronic ulcer of skin of other sites with fat layer exposed Comment: right and left upper forearm (6) Nonhealing ulcer of lower extremity with fat layer exposed Status: Acute Current Visit: Yes Qualifiers: Laterality: left Qualified Code(s): L97.922 - Non-pressure chronic ulcer of unspecified part of left lower leg with fat layer exposed Code(s): L97.902 - Non-pressure chronic ulcer of unspecified part of unspecified lower leg with fat layer exposed Comment: x 2 superior and inferior moura History of Present Illness Date of Service: 08/16/18 Chief Complaint: ulcers on bilateral forearms and bilateral shins x 1 year s/p infected abscesses from heroin abuse. History of Wound: This is a 47-year-old white female who presents to the wound healing center today with complaints of ulcerations to her upper and lower extremities times approximately 1 year after abscesses occurred from heroin abuse. She has a past medical history significant for tobacco abuse currently on Chantix, malnutrition, anemia, and polysubstance abuse. The patient does state that she has been clean from illicit drugs for 8 months now. The patient states that she has a lot of Santyl at home for her ulcerations, however she has not been using it. She states that frequently she will use tweezers and pick at the inside of her wounds and use her fingers to pick around the wound edges. She states that she has been using triple antibiotic ointment on her wounds for the last couple of months. She denies any systemic or localized signs of infection at this time. She does have moderate serosanguineous discharge. She does note that she is concerned because she has a sharp shooting pain behind her left calf that just began yesterday and she is concerned for a blood clot. Denies any other acute concerns. The patient otherwise denies any fever, chills, nausea, vomiting, shortness of breath, chest pain or pressure, palpitations, orthopnea, lower extremity edema, syncope or presyncopal episodes. Past Medical History Surgical History: hysterectomy Allergies/Adverse Reactions: Allergies codeine phosphate [From Tylenol-Codeine #3] Adverse Reaction (Verified 02/23/18 00:31) Vomiting Home Medications: Ambulatory Orders Medication Instructions Recorded Cephalexin [Keflex] 500 mg PO Q6 #28 cap 02/23/18 Ibuprofen [Motrin] 800 mg PO TID PRN PRN #20 tab 02/23/18 Smz/Tmp Ds [Bactrim Ds] 1 tab PO BID #14 tab 02/23/18 - Family History Maternal Diabetes Paternal Heart Disease Smoking Status: Current every day smoker Review of Systems Constitutional: Denies: Chills, Fever, Weight Change Eyes: Denies: Pain, Vision Change HEENT: Denies: Difficulty Hearing, Difficulty Swallowing, Sinus Congestion Cardiovascular: Denies: Chest Pain, Palpitations Respiratory: Denies: Cough, Shortness of Breath Gastrointestinal: Denies: Diarrhea, Nausea, Vomiting Genitourinary: Denies: Dysuria, Hematuria Skin: Reports: Wounds - See HPI Neurological: Denies: Balance problems Psychiatric: Denies: Anxiety, Depression Endocrine: Denies: Heat/ Cold Intolerance, Polydipsia, Polyuria Hematologic/ Lymphatic: Reports: - - Sharp pain on and off to left calf. Denies: Easy Bruising, Easy Bleeding - Physical Exam Vital Signs Temp Pulse Resp BP 98.6 F 88 16 96/72 08/16/18 15:14 08/16/18 15:14 08/16/18 15:14 08/16/18 15:14 General: Alert, Oriented x3, Cooperative, No apparent distress, - - Thin, appears malnourished HEENT: Atraumatic, PERRLA Oral: Moist Mucosa Lungs: Clear to auscultation Cardiovascular: Regular rate, Regular Rhythm, Normal S1, Normal S2 Abdomen: Soft, Non Tender Extremities: No clubbing, No cyanosis, Capillary Refill Less than 3 Seconds, Diminished Peripheral Pulses - Diminished dorsal pedis pulses bilaterally, Edema - +1 nonpitting edema to bilateral lower extremities Skin: Ulcer/ Wound - Ulceration to right and left forearms with adherent slough, visible scratch aldridge present, moderate serosanguineous discharge, ulcerations to bilateral anterior lower extremities with adherent slough, no redness or s treaking noted. Tenderness with light palpation to the left posterior calf Wound Measurements and Assessment WC - Nurse 1 - General Ulcer Measurement Start: 08/16/18 15:14 Freq: Status: Active Protocol: Activity Type Activity Date Activity User E-Sign Co-Sign Detail Recorded Client Recorded Date Recorded By Document 08/16/18 15:14 MW [id number] 08/16/18 15:28 MW 08/16/18 15:14 Wound Center Nurse 1 [Ulcer Assessment] #9 RIGHT FOREARM -Combined with other wound No -Current Size (cm) - Length 5.2 -Current Size (cm) - Width 1.5 -Current Size (cm) - Depth 0.2 -Total Square Cm 7.80 -Date of Last Picture (Recall this 08/16/18 field) -Photo Taken Yes -Epithelialization None Present -Tunneling No -Undermining/Tunneling No -Circular Undermining No -Exudate Amt Small -Exudate Type Purulent -Wound Margin Flat & Intact -Granulation Amt Small (1-33%) -Granulation Quality N/A [place] -Necrosis Amt Medium (34-66%) -Necrotic Tissue Type Adherent Slough -Structure Exposed N/A -Texture (Ana-wound Skin Appearance) Assessed Scarring -Moisture (Ana-wound Skin Appearance No Abnormality ) Assessed -Color (Ana-wound Skin Appearance) No Abnormality Assessed -Temperature (Ana-wound Skin No Abnormality Appearance) (Pt Warm) -Tenderness on Palpation (Ana-wound No Skin Appearance) -Ulcer Cleansing Rinsed/ Irrigated with Saline -Foul Odor after Cleansing No -Anesthetic Used 5% Lidocaine Gel #8 LEFT FOREARM -Combined with other wound No -Current Size (cm) - Length 3.6 -Current Size (cm) - Width 1.9 -Current Size (cm) - Depth 0.2 -Total Square Cm 6.84 -Date of Last Picture (Recall this 08/16/18 field) -Photo Taken Yes -Epithelialization None Present -Tunneling No -Undermining/Tunneling No -Circular Undermining No -Exudate Amt None Present -Wound Margin Flat & Intact -Granulation Amt Medium (34-66%) -Granulation Quality [place] -Slough/Fibrin Yes -Necrosis Amt Medium (34-66%) -Necrotic Tissue Type Adherent Slough -Structure Exposed N/A -Texture (Ana-wound Skin Appearance) Assessed Scarring -Moisture (Ana-wound Skin Appearance No Abnormality ) Assessed -Color (Ana-wound Skin Appearance) No Abnormality Assessed -Temperature (Ana-wound Skin No Abnormality Appearance) (Pt Warm) -Tenderness on Palpation (Ana-wound Yes Skin Appearance) -Ulcer Cleansing Rinsed/ Irrigated with Saline -Foul Odor after Cleansing No -Anesthetic Used 5% Lidocaine Gel #7 RIGHT MOURA -Combined with other wound No -Current Size (cm) - Length 7.5 -Current Size (cm) - Width 3.7 -Current Size (cm) - Depth 0.2 -Total Square Cm 27.75 -Date of Last Picture (Recall this 08/16/18 field) -Photo Taken Yes -Epithelialization None Present -Tunneling No -Undermining/Tunneling No -Circular Undermining No -Exudate Amt None Present -Wound Margin Flat & Intact -Granulation Amt Medium (34-66%) -Granulation Quality Red -Slough/Fibrin Yes -Necrosis Amt Medium (34-66%) -Necrotic Tissue Type Adherent Slough -Structure Exposed N/A -Texture (Ana-wound Skin Appearance) Assessed Scarring -Moisture (Ana-wound Skin Appearance Assessed ) Dry/Scaly -Color (Ana-wound Skin Appearance) No Abnormality Assessed -Temperature (Ana-wound Skin No Abnormality Appearance) (Pt Warm) -Tenderness on Palpation (Ana-wound No Skin Appearance) -Ulcer Cleansing Rinsed/ Irrigated with Saline -Foul Odor after Cleansing No -Anesthetic Used 5% Lidocaine Gel # 6 LEFT MOURA INFERIOR -Combined with other wound No -Current Size (cm) - Length 2.6 -Current Size (cm) - Width 0.4 -Current Size (cm) - Depth 0.2 -Total Square Cm 1.04 -Date of Last Picture (Recall this 08/16/18 field) -Photo Taken Yes -Epithelialization None Present -Tunneling No -Undermining/Tunneling No -Circular Undermining No -Exudate Amt None Present -Wound Margin Flat & Intact -Granulation Amt Medium (34-66%) -Granulation Quality Red -Slough/Fibrin Yes -Necrosis Amt Medium (34-66%) -Necrotic Tissue Type Adherent Slough -Structure Exposed N/A -Texture (Ana-wound Skin Appearance) Assessed Scarring -Moisture (Ana-wound Skin Appearance Assessed ) Dry/Scaly -Color (Ana-wound Skin Appearance) No Abnormality Assessed -Temperature (Ana-wound Skin No Abnormality Appearance) (Pt Warm) -Tenderness on Palpation (Ana-wound No Skin Appearance) -Ulcer Cleansing Rinsed/ Irrigated with Saline -Foul Odor after Cleansing No -Anesthetic Used 5% Lidocaine Gel #5 LEFT MOURA -Combined with other wound No -Current Size (cm) - Length 9.3 -Current Size (cm) - Width 4.6 -Current Size (cm) - Depth 0.2 -Total Square Cm 42.78 -Date of Last Picture (Recall this 08/16/18 field) -Photo Taken Yes -Epithelialization None Present -Tunneling No -Undermining/Tunneling No -Circular Undermining No -Exudate Amt None Present -Wound Margin Flat & Intact -Granulation Amt Medium (34-66%) -Granulation Quality Red -Slough/Fibrin Yes -Necrosis Amt Medium (34-66%) -Necrotic Tissue Type Adherent Slough -Structure Exposed N/A -Texture (Ana-wound Skin Appearance) Assessed Scarring -Moisture (Ana-wound Skin Appearance Assessed ) Dry/Scaly -Color (Ana-wound Skin Appearance) No Abnormality Assessed -Temperature (Ana-wound Skin No Abnormality Appearance) (Pt Warm) -Tenderness on Palpation (Ana-wound No Skin Appearance) -Ulcer Cleansing Rinsed/ Irrigated with Saline -Foul Odor after Cleansing No -Anesthetic Used 5% Lidocaine Gel [Edema Assessment] -Lower Limb Edema Present No -Right Calf (cm) 30.3 -Right Ankle (cm) 19.5 -Left Calf (cm) 31.1 -Left Ankle (cm) 19.1 Musculoskeletal: No Tenderness to Palpation of Joints or Extremities, - - Appears malnourished Neurological: Neuro grossly intact Psych/Mental Status: Normal Affect, Appropriate, Alert and oriented to time, place, person, mood and affect Debridement Note Wound debrided: Left inferior and superior lower extremity ulcer Laterality: Left Type of Debridement: Excisional debridement Anesthesia Used: 5% Lidocaine Gel Depth: in the subcutaneous layer Percentage of wound debrided: 100 Instrument Used: 5mm curette Tissue Removed: Slough, devitalized tissue, necrotic wound edges Severity: Fat Layer Exposed Amount of bleeding with debridement: Mild Bleeding Controlled with: Pressure Patient did not tolerate procedure well - Due to pain - Additional Wound Wound debrided: Right anterior lower extremity ulcer Laterality: Right Type of Debridement: Excisional debridement Anesthesia Used: 5% Lidocaine Gel Depth: in the subcutaneous layer Percentage of wound debrided: 100 Instrument Used: 5mm curette Tissue Removed: Slough devitalized tissue Severity: Fat Layer Exposed Amount of bleeding with debridement: Mild Bleeding Controlled with: Pressure Patient tolerated procedure: Patient did not tolerate procedure well - Due to pain - Additional Wound Wound debrided: Right forearm ulcer Laterality: Right Type of Debridement: Excisional debridement Anesthesia Used: 5% Lidocaine Gel Depth: in the subcutaneous layer Percentage of wound debrided: 100 Instrument Used: 5mm curette Tissue Removed: Slough and devitalized tissue Severity: Fat Layer Exposed Amount of bleeding with debridement: Mild Bleeding Controlled with: Pressure Patient tolerated procedure: Patient did not tolerate procedure well - Additional Wound Wound debrided: Left forearm ulcer Laterality: Left Type of Debridement: Excisional debridement Anesthesia Used: 5% Lidocaine Gel Depth: in the subcutaneous layer Percentage of wound debrided: 100 Instrument Used: 5mm curette Tissue Removed: Slough and devitalized tissue Severity: Fat Layer Exposed Amount of bleeding with debridement: Mild Bleeding Controlled with: Pressure Patient tolerated procedure: Patient did not tolerate procedure well Assessment/Plan Active Problems Malnutrition (Acute) Nonhealing ulcer of upper extremity with fat layer exposed (Acute) right and left upper forearm Nonhealing ulcer of lower extremity with fat layer exposed (Acute) History of heroin abuse (Acute) Nonhealing ulcer of lower extremity with fat layer exposed (Acute) x 2 superior and inferior moura Assessment: See above diagnoses Plan: The patient was seen and examined at the wound center today and was updated on the plan of care. A subcutaneous debridement was performed today. The patient tolerated the procedure well. The patients wound care will consist of: Applying Santyl to all ulcerations at this time due to patient's pain level and being unable to tolerate aggressive debridements. Wound cultures were collected. Baseline bloodwork ordered. Vascular studies ordered. Patient educated on the importance of diet on wound healing and instructed to increase protein and vitamin C intake. Patient verbalized understanding. Patient will follow up at wound healing center in one week or sooner if needed and in 4 days for nurse visit. Given the duration of the patient's chronic ulcerations being open close to a year, will apply for the use of pure apply a.m. Also instructed patient on the importance of not picking her ulcerations or using tweezers on them. Patient was instructed to go to the emergency department today as she has complaints of sharp pain to her left calf and is concerned for a blood clot. This note was generated with [employer] dictation software. It may contain incorrect words, spelling, and punctuation that were not noted in checking the note before signing. Code Visit Office Visits / Consults: [id number] OV L4 Est 111xxx-113xx: [id number] Bruna subq tissue 20 sq cm/<
[2018-08-16 19:33] LABS: M R Staph aureus DNA By PCR POSITIVE (Negative); Probe Check PASS; Staph aureus DNA By PCR POSITIVE (Negative)
--- NOTE | 2018-08-17 11:33 | WC ---
left message on patient's voicemail to inform her of antibiotic called into [facility] in [place] per Donny Arnold NP for a positive wound culture. Also advised patient to call wound center to discuss the bloodwork she was to follow up on in the emergency room after leaving [facility] on 08/16/18. pt was advised to seek follow-up at the emergency room for suspected DVT of left lower extremity after appointment on 08/16/18, however has not done so as of this time.
== END 2018-09-09 23:59 ==
LOC: WC 14:42
PROVIDERS: Visit Provider Nurse Practitioner Family
DX: L97.822 Non-pressure chronic ulcer of other part of left lower leg with fat layer exposed (principal); L97.812 Non-pressure chronic ulcer of other part of right lower leg with fat layer exposed; F19.11 Other psychoactive substance abuse, in remission; F17.200 Nicotine dependence, unspecified, uncomplicated; L98.492 Non-pressure chronic ulcer of skin of other sites with fat layer exposed; E46 Unspecified protein-calorie malnutrition; Z68.1 Body mass index [BMI] 19.9 or less, adult
CPT/HCPCS: 11042; 11045; 87070; 87075; 87077; 87186; 87205; 87640; 99213; G0463

== ENCOUNTER 2018-09-30 11:05 | Emergency (ER) | payer MEDICAID, SELFPAY ==
[2018-09-30 11:08] VITALS: BP 106/72; PULSE 117; RESP 18; TEMP 37.7; O2SAT 97; BMI 18.8
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
[2018-09-30] MEDS: Doxycycline 100 MG CAPSULE PO (12:15)
== END 2018-09-30 12:20 | disposition home or self-care (01) ==
PROVIDERS: Emergency Provider Emergency Medicine
DX: L97.819 Non-pressure chronic ulcer of other part of right lower leg with unspecified severity (principal); L03.115 Cellulitis of right lower limb; Z72.0 Tobacco use
CPT/HCPCS: 99283

== ENCOUNTER 2018-12-10 22:04 | Emergency (ER) | payer MEDICAID, SELFPAY ==
[2018-12-10 22:07] VITALS: BP 109/88; PULSE 98; RESP 16; TEMP 37.2; O2SAT 96; BMI 16.8
--- NOTE | 2018-12-10 22:35 | ED.RN ---
orders were obtained to place a line and start an iv. pt was brought into triage to start the process. she stated my sister is on her way and if i want a ride home in need to leave. pt was encourage to return is s/s become worse. heena kingston, rn [phone]
== END 2018-12-10 23:07 | disposition left against medical advice (07) ==
LOC: ED 22:48
PROVIDERS: Emergency Provider Emergency Medicine
DX: L03.113 Cellulitis of right upper limb (principal)

== ENCOUNTER 2018-12-11 21:45 | Emergency (ER) | payer MEDICAID, SELFPAY ==
[2018-12-10 22:07] VITALS: BMI 16.8
[2018-12-11 21:46] VITALS: BP 108/80; PULSE 95; RESP 18; TEMP 37.1; O2SAT 98; BMI 17.2
[2018-12-11 22:31] VITALS: BP 108/80; PULSE 95; RESP 18; TEMP 37.1; O2SAT 98
--- NOTE | 2018-12-11 22:50 | ED.VIS.GEN ---
History of Present Illness Chief Complaint: Cellulitis Informant: Patient Narrative: Is in for an infection on the back of her right hand. She used heroin 3 days ago with a dirty needle. She has had cellulitis in the past as well. She states she noticed the redness yesterday and came into the ER but there was a long wait. It has not gotten much worse since. On the dorsum of her right hand and also her distal wrist. She is noticed no abscess. There is been no drainage. Current severity is mild to moderate. No fevers or chills. Stated that she is going into rehab tomorrow and has a bed in the afternoon - Past Medical History (1) Anemia Status: Acute (2) History of heroin abuse Status: Acute (3) Infected open wound Status: Acute (4) Malnutrition Status: Acute (5) Nonhealing ulcer of lower extremity with fat layer exposed Status: Acute (6) Nonhealing ulcer of lower extremity with fat layer exposed Status: Acute Comment: x 2 superior and inferior moura (7) Nonhealing ulcer of upper extremity with fat layer exposed Status: Acute Comment: right and left upper forearm (8) Opiate withdrawal Status: Acute Past Medical History - Allergies and Home Meds Allergies/Adverse Reactions: Allergies codeine phosphate [From Tylenol-Codeine #3] Adverse Reaction (Verified 12/11/18 21:49) Vomiting Primary Care Physician: Belén Fall DO [Primary Care Provider] - Prior records reviewed: Yes Surgical History: hysterectomy Smoking Status: Current every day smoker Alcohol: None Drugs: Heroin - Family History Maternal Family History: Reports: Diabetes Paternal Family History: Reports: Heart Disease Review of Systems General: Denies: Chills, Fever, Sweats Eyes: Denies: Visual changes - bilaterally, Diplopia ENT: Denies: Rhinorrhea, Sore throat Cardiovascular: Denies: Chest pain, Palpitations Respiratory: Denies: Dyspnea, Cough, Dyspnea on exertion Gastrointestinal: Denies: Abdominal pain, Nausea, Vomiting, Diarrhea, Melena, Hematochezia Genitourinary: Denies: Dysuria, Hematuria, Frequency Musculoskeletal: Denies: Back pain, Extremity Pain Skin: Reports: - - See HPI. Denies: Wounds Neurological: Denies: Headache, Weakness, Numbness Physical Exam Vital Signs/Narrative: Vital Signs Temp Pulse Resp BP Pulse Ox 12/11/18 22:31 98.8 F 95 18 108/80 98 12/11/18 21:46 98.8 F 95 18 108/80 98 General: Well nourished, Well developed, No Acute Distress Head: Normocephalic, Atraumatic Eyes: Perrl, EOMI ENT: Moist mucous membranes, No rhinorrhea Neck: Supple, Nontender Cardiovascular: Regular rate, Regular rhythm, No murmurs Respiratory: No distress, CTA bilaterally, Chest nontender Abdomen: Soft, Nontender, Nondistended, Normal bowel sounds Back: Nontender, Normal Inspection Extremities: Nontender, No edema Skin: - - She has an inflammatory cellulitis on the dorsum of her right hand. There is also some involvement of her distal right wrist. There is no significant volume of her forearm. There is no abscess. It is inflamed and slightly tender. When palpating deep I cannot palpate any fluctuance or abscess or loculation. Negative for: Normal color, No rash Neurological: Alert, Oriented x3, Cranial nerves II-XII grossly intact, Normal Strength, Normal Sensation Psychological: Normal affect, Normal Mood Diagnostic/Tx/Re-eval - Medical Decision Making At this time I think the patient has an early cellulitis. Instructed not to use dirty needles. She will be given a dose of Bactrim and Keflex in the department. She does not want an IV. She like to try oral and return if it worsens. I discussed that she this may not work but the patient wants to try this. She was given a prescription for Bactrim and Keflex and will enter rehab tomorrow ED Disposition - Plan for ED Patient: Disposition: Psychiatric Hospital or Unit Diagnosis: Cellulitis, Heroin abuse Instructions: Cellulitis Prescriptions: Smz/Tmp Ds [Bactrim Ds] 1 tab PO BID #20 tab Prescription Printed Cephalexin [Keflex] 500 mg PO Q6 #40 cap Prescription Printed Referrals: Belén Fall DO [Primary Care Provider] -
[2018-12-11] MEDS: Cephalexin 250 MG Capsule 500 MG PO (22:58)
[2018-12-11] MEDS: Smz/Tmp Ds Tablet 1 TABLET PO (22:59)
== END 2018-12-11 23:03 | disposition home or self-care (01) ==
LOC: ED 22:54
PROVIDERS: Emergency Provider Emergency Medicine
DX: L03.113 Cellulitis of right upper limb (principal); F11.10 Opioid abuse, uncomplicated; F17.200 Nicotine dependence, unspecified, uncomplicated
CPT/HCPCS: 99283

== ENCOUNTER 2019-05-17 18:55 | Emergency (ER) | payer MEDICAID, SELFPAY ==
[2019-05-17 18:57] VITALS: BP 125/81; PULSE 93; RESP 17; TEMP 36.4; O2SAT 100; BMI 19.1
[2019-05-17] MEDS: Ketorolac 60 MG/2 ML Vial IM (19:22)
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
--- NOTE | 2019-05-17 20:33 | ED.DEP ---
ED Disposition - Plan for ED Patient: Disposition: Home or Assisted Living Instructions: NECK PAIN, No Trauma Referrals: Belén Fall DO [Primary Care Provider] -
== END 2019-05-17 20:41 | disposition home or self-care (01) ==
PROVIDERS: Emergency Provider Emergency Medicine
DX: M54.2 Cervicalgia (principal); J44.9 Chronic obstructive pulmonary disease, unspecified; Z72.0 Tobacco use
CPT/HCPCS: 72040; 96372; 99283

== ENCOUNTER 2019-10-14 13:02 | Inpatient (IN) | payer MEDICAID, SELFPAY ==
[2019-10-14] VITALS (11 sets, daily range): BP systolic 81–103; BP diastolic 47–64; PULSE 109–130; RESP 12–18; TEMP 36.3–37.7; O2SAT 95–100; BMI 20.2; BMI 21.2
--- NOTE | 2019-10-14 13:25 | CT_ITS ---
STUDY: CT SCAN THIGH LEFT REASON FOR EXAM: Female, 49 years old. Left hip/thigh infection radiates into buttock, leg and back x 5 days. Elevated WBC, left leg swelling. RADIATION DOSAGE (If Supplied By Facility): CTDIvol = ( 15.35 ) mGy, DLP = ( 633.92 ) mGycm. Individualized dose optimization techniques were used for this CT.? TECHNIQUE: Multiple axial tomographic images of the left thigh was obtained. Coronal and sagittal reconstruction was obtained as well. COMPARISON: None. FINDINGS: There is evidence of a skin thickening as well as increased markings within the subcutaneous fat suggestive of a cellulitis. This extends down to the distal portion of the thigh. There is a rim of the fluid density surrounding the lateral aspect of the quadriceps muscle. This measures 7.9 mm in transverse dimension. This extends down to the distal portion of the left thigh. There is an edematous changes of the quadriceps muscle as well. CT/Extremity Lower without Contra IMPRESSION: Diffuse skin thickening and cellulitis involving the lateral aspect of the left thigh down to its distal portion with a thin rim of the edematous changes along its lateral aspect. Edematous changes involving the quadriceps muscle as well. The bony structures are unremarkable. Electronically Signed: Jelani Sparks, at 16:00 EDT , Service support ,
--- NOTE | 2019-10-14 13:25 | VDLE_ITS ---
Reason For Study: Swelling RIGHT LEFT CFV is compressible, spontaneous, phasic, GSV is normal. competent and demonstrates normal CFV is compressible, spontaneous, phasic, augmentation. competent, and demonstrates normal Procedure augmentation. Exam performed portable in ED. FV is compressible, spontaneous, phasic, A preliminary report was called and/or faxed competent and demonstrates normal to Na. augmentation. POP V is compressible, spontaneous, phasic, competent and demonstrates normal augmentation. T/P Trunk is compressible. PTV is compressible. LT PerV is compressible. Interpretation Summary There is no evidence of left lower extremity deep vein thrombosis. Left great saphenous vein appears patent and compressible segmentally. Patent and compressible right common femoral vein Ordering Physician: Kevin Monzon Referring Physician: Belén Guzman Performed By: Nilda Uribe RVT
[2019-10-14 14:41] LABS: Absolute Lymphocyte Count 1.02 X10^3/uL (0.83-4.51); Basophil# 0.08 X10^3/uL; Basophil% 0.5 % (0-1); Eosinophil# 0.11 X10^3/uL; Eosinophils% 0.7 % (0-5); Hemoglobin 11.2 g/dL (12.0-15.0); Lymphocyte # 1.02 X10^3/ul (4.0); Lymphocyte % 6.2 % (19-41); Mean Corpuscular Hgb 22.8 pg (27.0-32.0); Mean Corpuscular Volume 71.3 fL (81-99); Mean Platelet Vol. 9.3 fl (6.2-12.0); Monocyte# 1.23 X10^3/uL; Monocyte% 7.5 % (0-10); NRBC Flagged by Analyzer 0 % (0-5); Neutrophil # 14.01 X10^3/uL (2.7-7.7); Neutrophil % 84.8 % (47-70); POSITIVE MORPHOLOGY YES; Platelet Count 320 K/mm3 (150-450); RBC Distribution Width CV 16.8 % (11.6-14.6); RBC Distribution Width SD 42.8 fl (35.1-43.9); Red Blood Count 4.91 M/mm3 (4.2-5.4); White Blood Count 16.5 K/mm3 (4.4-11.0)
[2019-10-14 14:43] LABS: Differential Indicated SCAN CRITERIA MET
[2019-10-14 14:57] LABS: ALB/GLOB Ratio 0.5 RATIO (0.9-2.4); AST(SGOT) 8 U/L (15-37); Alanine Aminotransfer ALT/SGPT 19 U/L (13-56); Albumin, Serum 2.2 g/dL (3.2-5.0); Alkaline Phosphatase 114 U/L (45-117); Anion Gap 8 (5-15); BUN 40 mg/dL (7-18); BUN/Creat Ratio 44.5 RATIO (10-20); Calcium,Total 9.1 mg/dL (8.5-10.1); Chloride 101 mmol/L (98-107); EST Glomerular Filtration Rate 71 mL/min (>60); Est Glom Filt Rate - Afr Amer 85 mL/min (>60); Estimated Creatinine Clearance 53.72 ml/min; Globulin 4.4 g/dL (2.2-4.2); Glucose 112 mg/dL (74-106); Potassium 3.9 mmol/L (3.5-5.1); Protein, Total 6.6 g/dL (6.4-8.2); Sodium Level 132 mmol/L (136-145)
[2019-10-14 15:06] LABS: Lactic Acid 1.5 mmol/L (0.4-1.9)
--- NOTE | 2019-10-14 15:15 | ED.VIS.GEN ---
History of Present Illness Chief Complaint: Lower Extremity Injury Narrative: Patient presenting for evaluation secondary to left buttock and left leg pain. Patient has a past history of IV drug abuse. Initially she was avoidant on the question, but ultimately tells me that she has been using IV drugs recently. Over the course of about the last week she has developed left leg and left buttock pain. Patient reports that she had some leftover prednisone at home so she took that and she been getting better. Patient states the pain is getting progressively worse. Patient states that it is causing her some nausea. She denies any fevers. Patient has pain with ambulation now. She denies any numbness or weakness. She denies any bowel or bladder incontinence. Review of systems otherwise negative. Past Medical History - Allergies and Home Meds Allergies/Adverse Reactions: Allergies codeine phosphate [From Tylenol-Codeine #3] Adverse Reaction (Verified 10/14/19 13:03) Vomiting Primary Care Physician: Belén Fall DO [Primary Care Provider] - Past Medical History: - - Past history of IV drug abuse Surgical History: hysterectomy Smoking Status: Current every day smoker - Family History Maternal Family History: Reports: Diabetes Paternal Family History: Reports: Heart Disease Review of Systems All systems negative except as indicated General: Reports: Malaise Eyes: Denies: Visual changes - bilaterally, Diplopia ENT: Denies: Rhinorrhea, Sore throat Cardiovascular: Denies: Chest pain, Palpitations Respiratory: Denies: Dyspnea, Cough, Dyspnea on exertion Gastrointestinal: Reports: Nausea Genitourinary: Denies: Dysuria, Hematuria, Frequency Musculoskeletal: Reports: Swelling, Extremity Pain Skin: Denies: Rash, Wounds Neurological: Denies: Headache, Weakness, Numbness Physical Exam Vital Signs/Narrative: Vital Signs Temp Pulse Resp BP Pulse Ox 10/14/19 13:03 97.3 F L 130 H 16 103/64 100 Inital Vital Signs reviewed: Yes General: Well nourished, Well developed, No Acute Distress Head: Normocephalic, Atraumatic Eyes: Perrl, EOMI ENT: Moist mucous membranes, No rhinorrhea Neck: Supple, Nontender Cardiovascular: No murmurs, Tachycardia, - - 2+ radial pulses bilaterally symmetric Respiratory: No distress, CTA bilaterally, Chest nontender Abdomen: Soft, Nontender, Nondistended, Normal bowel sounds Back: Nontender, Normal Inspection Extremities: - - Patient has evidence of induration and erythema erythema over the left thigh and hip with exquisite tenderness to palpation. There is tenderness of the buttock region as well. Pain with range of motion of the hip is noted. Patient has chronic wounds noted over her shins bilaterally. Skin: Normal color Neurological: Alert, Oriented x3 Psychological: Normal affect Diagnostic/Tx/Re-eval Clinical Impression(s) from Imaging Studies Lower Extremity CT 10/14/19 13:25 IMPRESSION: Diffuse skin thickening and cellulitis involving the lateral aspect of the left thigh down to its distal portion with a thin rim of the edematous changes along its lateral aspect. Edematous changes involving the quadriceps muscle as well. The bony structures are unremarkable. Electronically Signed: Jelani Sparks, at 16:00 EDT , Service support , Laboratory Data 10/14/19 10/14/19 10/14/19 14:28 14:28 14:28 WBC 16.5 H RBC 4.91 Hgb 11.2 L Hct 35.0 L MCV 71.3 L MCH 22.8 L MCHC 32.0 RDW Std Deviation 42.8 RDW Coeff of Yasmine 16.8 H Plt Count 320 MPV 9.3 Immature Gran % (Auto) 0.300 Neut % (Auto) 84.8 H Lymph % (Auto) 6.2 L [place] % (Auto) 7.5 Eos % (Auto) 0.7 Baso % (Auto) 0.5 Absolute Neuts (auto) 14.0 H Absolute Lymphs (auto) 1.02 Nucleated RBC % 0 Differential Comment SCANNED Sodium 132 L Potassium 3.9 Chloride 101 Carbon Dioxide 23.0 Anion Gap 8 BUN 40 H Creatinine 0.90 Estim Creat Clear Calc 53.72 Est GFR (MDRD) Af Amer 85 Est GFR (MDRD) Non-Af 71 BUN/Creatinine Ratio 44.5 H Glucose 112 H Lactic Acid 1.5 Calcium 9.1 Total Bilirubin 0.40 AST 8 L ALT 19 Alkaline Phosphatase 114 Total Protein 6.6 Albumin 2.2 L Globulin 4.4 H Albumin/Globulin Ratio 0.5 L - Medical Decision Making Patient presented for evaluation secondary to leg pain. Physical exam of the patient seems to show evidence that the patient has an infection of the thigh with erythema and induration in that area. I was concerned for the possibility of more deep space infection. IV was established laboratory studies were obtained. CBC shows a leukocytosis. Chemistry and lactic acid found to be unremarkable. Duplex ultrasound does not show any evidence of DVT. Patient has normal distal pulses, I do not think that this is arterial. CT imaging was performed which really shows more evidence of cellulitis but does show some edema of the anterior thigh muscle. IV access was not able to be definitively obtained, so the patient was consented for central line placement. Right IJ central line was placed as noted in the procedure note and was confirmed with chest x-ray. Patient was given clindamycin. Patient will be admitted for further treatment of her cellulitis. Patient I do think is high risk for bacteremia as she is a IV drug user - Critical Care Time Critical care time (excluding procedures): 30-74 minutes Procedures Procedure(s): Patient was consented for ultrasound-guided right internal jugular central venous catheter placement. She understands the risks and benefits of the procedure and did sign written consent. Timeout was performed prior to the procedure confirming at the procedure site, patient, and procedure to be performed. Patient was prepped with chlorhexidine. She was draped in a sterile fashion and a head to toe drape. Right internal jugular vein was identified using ultrasound. 1% lidocaine was instilled over the area. Ultrasound guidance was utilized and venous access was obtained. Modified Seldinger technique was utilized, and a triple-lumen catheter was sutured in place with a Biopatch. Dressing was placed by nursing. Patient tolerated this well. ED Disposition - Plan for ED Patient: Disposition: Acute Care Hospital [facility] Diagnosis: Sepsis, Cellulitis, IV drug abuse
[2019-10-14 15:16] LABS: Differential Comment SCANNED
[2019-10-14] MEDS: Ondansetron 4 MG/2 ML Vial IM (15:29)
[2019-10-14] MEDS: Morphine 4 MG/ML Syringe IM (15:29)
[2019-10-14] MEDS: 0.9% Normal Saline 1,000 ML 1000 ML IV (17:02)
--- NOTE | 2019-10-14 17:18 | HP.PCM_ITS ---
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 She first noticed this 10/04 when she woke up in the morning. She had pain in her leg when she tried to weight bear. She fell down due to pain. She avoided coming to the hospital due to covid and hoped it would get better on its own, and could not see her PCP because the office has been closed. She has had increased pain, tenderness, warmth, and swelling in the proximal LLE. She denies fevers / chills. She denies a hx of cellulitis. She denies any drug use in 3 months. She appears to have cellulitis with swelling on CT, leukocytosis, and tachycardia. 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 (Chronic) right and left upper forearm Nonhealing ulcer of lower extremity with fat layer exposed (Chronic) History of heroin abuse (Chronic) Nonhealing ulcer of lower extremity with fat layer exposed (Chronic) x 2 superior and inferior moura IV drug abuse (Chronic) Nicotine abuse (Chronic) Allergies codeine phosphate [From Tylenol-Codeine #3] Adverse Reaction (Verified 10/14/19 13:03) Vomiting Home Medications: Ambulatory Orders Medication Instructions Recorded Acetaminophen [Tylenol Extra 500 - 1,000 mg PO Q6H PRN PRN 10/14/19 Strength] Surgical History: hysterectomy Psychiatric History: No pertinent psych hx 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 Lives: Alone Smoking Status: Current every day smoker Tobacco Use: Cigarettes Alcohol: None Drugs: Heroin - in remission x 3 months - *Family History Maternal History Items: Diabetes Paternal History Items: Heart Disease Review of Systems Constitutional: Denies: Chills, Fever, Weight Change HEENT: Denies: Head Aches, Sinus Congestion, Sinus Drainage Cardiovascular: Denies: Chest Pain, Palpitations Respiratory: Denies: Cough, Shortness of breath at rest, Sputum production Gastrointestinal: Denies: Abdominal Pain, Nausea, Vomiting Genitourinary: Denies: Dysuria Musculoskeletal: Reports: Leg Pain. Denies: Joint Pain, Joint Tenderness Skin: Reports: Rash - left proximal leg, Wounds - left moura Neurological: Denies: Numbness, Tingling, Focal weakness Psychiatric: Denies: Anxiety, Depression, Homicidal Ideations, Suicidal Ideations Hematologic/ Lymphatic: Denies: Easy Bruising, Easy Bleeding VTE Information - Inpt Only VTE Present on Admission: No VTE Mechan Device Prophylaxis: None VTE Pharm Prophylaxis ordered?: Yes Patient Problems: Active and Suspected Problems Sepsis (Acute) Cellulitis (Acute) - Physical Exam Vitals/I&O's: Vital Signs Temp Pulse Resp BP Pulse Ox 97.3 F L 111 H 12 81/55 L 100 10/14/19 13:03 10/14/19 17:08 10/14/19 17:08 10/14/19 17:08 10/14/19 17:08 Oxygen Delivery Method Room Air Weight: 104 lb Body Mass Index (BMI) 20.2 General: Alert, Oriented x3, Cooperative HEENT: Atraumatic, PERRLA, EOMI, Normocephalic Neck: Supple, No JVD, Negative Carotid Bruits Lungs: Clear to auscultation, Normal air movement Cardiovascular: Regular rate, No murmurs Abdomen: Bowel Sounds Present, Soft, Non Tender Extremities: No edema, Capillary Refill Less than 3 Seconds, - - left proximal leg swelling, warmth, tenderness to mild palp, patchy erythema. distal leg poorly healed wound without cellulitic changes. Skin: No rashes, No breakdown Musculoskeletal: No Tenderness to Palpation of Joints or Extremities Neurological: Cranial nerves II-XII grossly intact Psych/Mental Status: Normal Affect, Appropriate Laboratory Results 10/14/19 14:28: WBC 16.5 H, RBC 4.91, Hgb 11.2 L, Hct 35.0 L, MCV 71.3 L, MCH 22.8 L, MCHC 32.0, RDW Std Deviation 42.8, RDW Coeff of Yasmine 16.8 H, Plt Count 3 20, MPV 9.3, Immature Gran % (Auto) 0.300, Neut % (Auto) 84.8 H, Lymph % (Auto) 6.2 L, [place] % (Auto) 7.5, Eos % (Auto) 0.7, Baso % (Auto) 0.5, Absolute Neuts (auto) 14.0 H, Absolute Lymphs (auto) 1.02, Nucleated RBC % 0, Differential Comment SCANNED 10/14/19 14:28: Sodium 132 L, Potassium 3.9, Chloride 101, Carbon Dioxide 23.0, Anion Gap 8, BUN 40 H, Creatinine 0.90, Estim Creat Clear Calc 53.72, Est GFR (MDRD) Af Amer 85, Est GFR (MDRD) Non-Af 71, BUN/Creatinine Ratio 44.5 H, Glucose 112 H, Calcium 9.1, Total Bilirubin 0.40, AST 8 L, ALT 19, Alkaline Phosphatase 114, Total Protein 6.6, Albumin 2.2 L, Globulin 4.4 H, Albumin/Globulin Ratio 0.5 L 10/14/19 14:28: Lactic Acid 1.5 Assessment/Plan All Active Problems Malnutrition (Acute) Sepsis (Acute) Cellulitis (Acute) 1. Acute sepsis 2/2 LLE cellulitis - continue clinda. pt denies recent IV drug use. LLE nonhealing wound appears noncellulitic. I do not appreciate any abscess, drainage, or collection. WBC is 16.5, CT is c/w cellulitis, she is tachycardic, without fever, and with negative lactate. Blood cx pending. CPK pending. Continue IV fluids, borderline low BP however pt states she is chronically this low and that systolic is often in 70s. -Venous US is negative. 2. LLE chronic wound - consult to wound care, follows wound care center as o/p 3. Hx Heroin abuse - per hx she is sober x 3 months 4. Nicotine abuse - 1/2 ppd smoker. requests patch. 5. Hyponatremia - suspect 2/2 sepsis - trend. DVT ppx: lovenox This patient was seen by Mauri Finn PA-C under the supervision of Dr. Vivar. <Chau Vivar - Last Filed: 10/14/19 18:15> History of Present Illness The patient is a 49 year old F [] Past Medical History Allergies codeine phosphate [From Tylenol-Codeine #3] Adverse Reaction (Verified 10/14/19 13:03) Vomiting - Physical Exam Vitals/I&O's: Vital Signs Temp Pulse Resp BP Pulse Ox 98.3 F 109 H 17 92/47 L 100 10/14/19 17:43 10/14/19 17:43 10/14/19 17:43 10/14/19 17:43 10/14/19 17:43 Oxygen Delivery Method Room Air Weight: 104 lb Body Mass Index (BMI) 20.2 Intake and Output for Last 24 Hours 10/12/19 10/13/19 10/14/19 23:59 23:59 23:59 Intake Total Balance Laboratory Results 10/14/19 14:28: WBC 16.5 H, RBC 4.91, Hgb 11.2 L, Hct 35.0 L, MCV 71.3 L, MCH 22.8 L, MCHC 32.0, RDW Std Deviation 42.8, RDW Coeff of Yasmine 16.8 H, Plt Count 320, MPV 9.3, Immature Gran % (Auto) 0.300, Neut % (Auto) 84.8 H, Lymph % (Auto) 6.2 L, [place] % (Auto) 7.5, Eos % (Auto) 0.7, Baso % (Auto) 0.5, Absolute Neuts (auto) 14.0 H, Absolute Lymphs (auto) 1.02, Nucleated RBC % 0, Differential Comment SCANNED 10/14/19 14:28: Sodium 132 L, Potassium 3.9, Chloride 101, Carbon Dioxide 23.0, Anion Gap 8, BUN 40 H, Creatinine 0.90, Estim Creat Clear Calc 53.72, Est GFR (MDRD) Af Amer 85, Est GFR (MDRD) Non-Af 71, BUN/Creatinine Ratio 44.5 H, Glucose 112 H, Calcium 9.1, Total Bilirubin 0.40, AST 8 L, ALT 19, Alkaline Phosphatase 114, Total Protein 6.6, Albumin 2.2 L, Globulin 4.4 H, Albumin/Globulin Ratio 0.5 L 10/14/19 14:28: Lactic Acid 1.5 10/14/19 14:28: Total Creatine Kinase 130 Assessment/Plan Hospitalist note: I am seeing this patient in conjunction with Mauri Finn. I independently seen and examined the patient. History and physical, laboratory data and imaging studies reviewed and I concur with above admission and treatment plan. Patient presented to the emergency room because of left upper thigh pain that has been going on for the last 7 to 8 days, dull aching and sometimes throbbing pain, 8 out of 10 in severity, associated with increasing left thigh swelling and mild erythema and no aggravating or relieving factors. She denied fever or chills. She does have chronic open nonhealing wound on the left lower leg which has been taken care of by the wound care center. She has history of IV drug abuse and ac cording to her, she has been in remission for 3 months. In the emergency department, she was afebrile, tachycardic, blood pressure was stable, pulse ox was 100% on room air. Routine blood work revealed leukocytosis, hemoglobin of 11.2 g/dL, otherwise unremarkable. LFT was unremarkable. Lactic acid was normal. CT scan of the lower extremity without contrast revealed diffuse skin thickening and cellulitis of the lateral aspect of the left eye down to the distal portion of the left eye and involving quadriceps muscle. Venous Doppler of the left lower extremity showed no acute DVT. Chest x-ray showed no acute findings. She is being admitted for sepsis secondary to acute left thigh cellulitis. - Physical Exam General: Alert, Oriented x3, Cooperative, she is in mild distress because of pain. HEENT: Atraumatic, PERRLA, EOMI. Neck: Supple, No JVD, Negative Carotid Bruits, Trachea Midline, Thyroid Normal. Lungs: Clear to auscultation, Normal air movement, No rhonchi, No wheeze, No ral es. Cardiovascular: Regular rate, Regular Rhythm, Normal S1, Normal S2, PMI Normal, tachycardia. Abdomen: Bowel Sounds Present, Soft, Non Tender, Non-Distended, No Hepato- splenomegaly. Extremities: No clubbing, No cyanosis, No edema. Chronic nonhealing wound on the chin of the left leg measuring about 2 x 4 cm, dry, no surrounding erythema. Left thigh: Swelling and erythema extending from the left hip down to the left knee, firm to palpation, no open wounds. Skin: No rashes, No breakdown Neurological: Cranial nerves are intact, neuro grossly intact Assessment and plan: #1 acute left thigh cellulitis/sepsis: CT scan left lower extremity reviewed as above. Venous Doppler showed no acute DVT. Patient does have sepsis. Plan: Admit to PCU, cardiac monitoring, blood culture, MRSA wound screen of the left leg, MRSA nasal screen, start IV clindamycin, IV fluids, IV morphine PRN for pain, Tylenol PRN, Zofran PRN, OxyIR PRN, repeat CBC and BMP tomorrow morning. #2 chronic left leg nonhealing wound: Without evidence of acute infection. Plan to consult wound care nurse. #3 other chronic medical problems: Stable, continue current medications as above. This note was generated with [employer] dictation software. It may contain incorrect words, spelling, and punctuation that were not noted in checking the note before signing. Inpatient E&M: 17760 Init Hosp L3
[2019-10-14 17:42] LABS: CPK Total, Creatine Kinase 130 U/L (26-192)
--- NOTE | 2019-10-14 17:48 | RAD_ITS ---
STUDY: X-RAY CHEST REASON FOR EXAM: Female, 49 years old. CENTRAL LINE PLACEMENT TECHNIQUE: Single AP portable view of the chest. COMPARISON: None. FINDINGS: There is a right IJ line terminating at the level of the diaphragm. Consider repositioning approximately 9 to 10 cm proximally. No pneumothorax. The lungs are clear and expanded. There is no demonstrated pleural abnormality. Normal size heart. Normal mediastinum and lilibeth. Normal visualized pulmonary arteries. Normal visualized aortic arch and descending thoracic aorta. Normal visualized thoracic spine. Normal visualized ribs, clavicles, and shoulders. There is no demonstrated abnormality of the visualized soft tissue structures of the upper abdomen. RAD/CXR for Line Placement IMPRESSION: There is a right IJ line terminating at the level of the diaphragm. Consider repositioning approximately 9 to 10 cm proximally. No acute chest disease. Electronically Signed: Pratik Thomson MD at 18:29 EDT , Service support ,
[2019-10-14] MEDS: oxyCODONE 5 MG Tablet PO (20:24)
[2019-10-14] MEDS: 0.9% Normal Saline 1,000 ML 100 ML IV (20:36)
--- NOTE | 2019-10-14 20:45 | NURSING ---
Assisted pt to [facility] for bm, upon transfer noted a short, dirty straw and small baggy with powder substance in it on the bed. Pt became tangled in her iv line and her underwear and upon de-tangling found syringe and other paraphernalia wrapped in paper towel. This RN placed all items into med drawer, locked and notified connor Dior RN.
[2019-10-14] MEDS: Morphine 2 MG/ML Syringe IV (21:45)
[2019-10-14] MEDS: 0.9% Saline Lock 10 ML Syringe IV (21:46)
[2019-10-15] VITALS (12 sets, daily range): BP systolic 78–102; BP diastolic 47–57; PULSE 96–138; RESP 16–20; TEMP 36.3–38.4; O2SAT 97–100
[2019-10-15 00:27] LABS: Probe Check PASS
[2019-10-15 00:28] LABS: M R Staph aureus DNA By PCR POSITIVE (Negative)
[2019-10-15 00:50] LABS: Amphetamine Urine VISTA NEGATIVE (<1000 ng/mL); Barbiturate Urine VISTA NEGATIVE (< 200 ng/mL); Benzodiazepine Urine VISTA NEGATIVE (< 200 ng/mL); Cocaine Urine VISTA NEGATIVE (< 300 ng/mL); Ecstacy Urine VISTA POSITIVE (< 500 ng/mL); Methadone Urine VISTA NEGATIVE (< 300 ng/mL); PCP Urine VISTA NEGATIVE (< 25 ng/mL); THC Urine VISTA NEGATIVE (< 50 ng/mL); Vista UDS pH Range 6
[2019-10-15] MEDS: Morphine 2 MG/ML Syringe IV ×4 (01:28→22:15)
[2019-10-15] MEDS: Acetaminophen 325 MG Tablet 650 MG PO (01:28)
[2019-10-15] MEDS: 0.9% Saline Lock 10 ML Syringe IV ×3 (01:29→09:29)
[2019-10-15] MEDS: oxyCODONE 5 MG Tablet PO ×3 (02:23→16:37)
[2019-10-15 05:43] LABS: Absolute Lymphocyte Count 0.59 X10^3/uL (0.83-4.51); Absolute Neutrophil Count 6.5 X10^3/uL (2.0-7.7); Basophil# 0.01 X10^3/uL; Basophil% 0.1 % (0-1); Eosinophils% 1.3 % (0-5); Hematocrit 32.8 % (37-47); Hemoglobin 10.4 g/dL (12.0-15.0); Lymphocyte # 0.59 X10^3/ul (4.0); Lymphocyte % 7.4 % (19-41); Mean Corp Hgb Conc 31.7 g/dL (32-36); Mean Corpuscular Hgb 23.2 pg (27.0-32.0); Mean Corpuscular Volume 73.1 fL (81-99); Mean Platelet Vol. 9.7 fl (6.2-12.0); Monocyte# 0.61 X10^3/uL; Monocyte% 7.7 % (0-10); NRBC Flagged by Analyzer 0 % (0-5); Neutrophil # 6.47 X10^3/uL (2.7-7.7); Neutrophil % 81.2 % (47-70); POSITIVE DIFFERENTIAL YES; POSITIVE MORPHOLOGY YES; Platelet Count 246 K/mm3 (150-450); RBC Distribution Width CV 17.1 % (11.6-14.6); RBC Distribution Width SD 44.5 fl (35.1-43.9); Red Blood Count 4.49 M/mm3 (4.2-5.4)
[2019-10-15 05:57] LABS: Anion Gap 4 (5-15); BUN 25 mg/dL (7-18); BUN/Creat Ratio 43.3 RATIO (10-20); Calcium,Total 8.4 mg/dL (8.5-10.1); Chloride 109 mmol/L (98-107); Creatinine, Serum 0.58 mg/dL (0.55-1.02); EST Glomerular Filtration Rate 118 mL/min (>60); Est Glom Filt Rate - Afr Amer 142 mL/min (>60); Estimated Creatinine Clearance 83.35 ml/min; Glucose 116 mg/dL (74-106); Potassium 3.2 mmol/L (3.5-5.1); Sodium Level 137 mmol/L (136-145)
[2019-10-15 06:37] LABS: Differential Indicated SCAN CRITERIA MET
[2019-10-15] MEDS: 0.9% Normal Saline 1,000 ML 999 ML IV (08:13)
[2019-10-15] MEDS: 0.9% Normal Saline 1,000 ML 100 ML IV (08:20)
[2019-10-15 08:29] LABS: Differential Comment SCANNED
--- NOTE | 2019-10-15 10:30 | NURSING ---
wound photo: left moura
--- NOTE | 2019-10-15 10:33 | NURSING ---
skin photo: left lateral thigh
--- NOTE | 2019-10-15 10:53 | CASEMGMT ---
JONATHAN REEDER assessment: Phone interview with patient for initial transition planning/care coordination assessment. JONATHAN REEDER introduced self and role at [facility], pt voices understanding and consents to assessment at this time. Pt is A/Ox4 at this time and answers questions appropriately at this time. Care providers, pharmacy, and demographics verified at this time. Presentation: Left sided hip pain that radiates to buttock, leg and back Admitting dx: Left thigh/left gluteal cellulitis, sepsis PCP: Juan David Specialists: Pt states currently no specialists. Preferred Pharmacy: [facility] Insurance: [facility] Prescription Benefit: CRS Living Will/HPOA: Pt states does not have LW/HPOA and declines AD info at this time. LNOK: Rabia Hanna, daughter Living Arrangements: Per nursing handoff, pt is homeless. Pt states that she is not homeless, that she lives with a roommate but that the roommate is 'not allowed to have other people living there' so pt does not want too many details listed such as roommate name/contact or apt number listed. Pt states she lives in 1 story apt with no stairs and states no concerns at home at this time. Pt states is independent with ADL's. Transportation: Pt states roommate drives and states no transportation concerns at this time. DME/HHC: Pt states no current DME or need for any at this time. Therapy does recommend WW and shower chair for pt at discharge and pt is agreeable to WW only at this time. [employer] is local in-network DME company and pt is agreeable at this time. Order to be sent once provider signature obtained. Pt states no hx of HHC or SNF in the past. Pt states no concerns with going home at time of discharge. Pt states is currently unemployed. Pt states smokes about 1/2 pack cigarettes daily, does not drink ETOH, and states last used heroin about 3 months ago, although pt was found to have drugs/paraphenelia on her person during current visit. Pt states no further concerns/needs at this time. CM to follow for any further discharge planning/needs. Advised pt to ask for CM if any further questions/concerns/needs arise, voices understanding. Pt Goal: Home Plan: [place] JONATHAN REEDER
--- NOTE | 2019-10-15 12:42 | PN_ITS ---
<Mauri Finn - Last Filed: 10/15/19 12:42> Patient Problems: Active and Suspected Problems Sepsis (Acute) Cellulitis (Acute) Reason for Visit: LLE cellulitis Subjective: Pt insistent that she did not inject into the area. She was caught with drugs and paraphernalia last night. She denies chills. Fever overnight. No cough/sob. No N/V/D. Pt notes about a month ago she had a left inner thigh boil that was lanced and drained. No current wounds in the affected area. Vitals/I&O's: Vital Signs Temp Pulse Resp BP Pulse Ox 97.3 F L 96 18 91/48 L 98 10/15/19 08:19 10/15/19 08:19 10/15/19 08:19 10/15/19 08:19 10/15/19 08:19 Oxygen Delivery Method Room Air Weight: 108 lb 12.064 oz Body Mass Index (BMI) 21.2 Intake and Output for Last 24 Hours 10/13/19 10/14/19 10/15/19 23:59 23:59 23:59 Intake Total 1260 / 1260 1806.00 / 1806.00 Balance 1260 / 1260 1806.00 / 1806.00 General: Alert, Oriented x3, Cooperative HEENT: Atraumatic, PERRLA, EOMI, Normocephalic Neck: Supple, No JVD, Negative Carotid Bruits Lungs: Clear to auscultation, Normal air movement Cardiovascular: Regular rate, No murmurs Abdomen: Bowel Sounds Present, Soft, Non Tender Extremities: Capillary Refill Less than 3 Seconds, Edema - left thigh Skin: No rashes, No breakdown, - - track aldridge on hands. LLE thigh erythematous, improved. 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 LLE distal wound scabbed and healing with no acute changes. Musculoskeletal: No Tenderness to Palpation of Joints or Extremities Neurological: Cranial nerves II-XII grossly intact Psych/Mental Status: Normal Affect, Appropriate, Alert and oriented to time, place, person, mood and affect Laboratory Results 10/14/19 14:28: WBC 16.5 H, RBC 4.91, Hgb 11.2 L, Hct 35.0 L, MCV 71.3 L, MCH 22.8 L, MCHC 32.0, RDW Std Deviation 42.8, RDW Coeff of Yasmine 16.8 H, Plt Count 320, MPV 9.3, Immature Gran % (Auto) 0.300, Neut % (Auto) 84.8 H, Lymph % (Auto) 6.2 L, Sevier % (Auto) 7.5, Eos % (Auto) 0.7, Baso % (Auto) 0.5, Absolute Neuts (auto) 14.0 H, Absolute Lymphs (auto) 1.02, Nucleated RBC % 0, Differential Comment SCANNED 10/14/19 14:28: Sodium 132 L, Potassium 3.9, Chloride 101, Carbon Dioxide 23.0, Anion Gap 8, BUN 40 H, Creatinine 0.90, Estim Creat Clear Calc 53.72, Est GFR (MDRD) Af Amer 85, Est GFR (MDRD) Non-Af 71, BUN/Creatinine Ratio 44.5 H, Glucose 112 H, Calcium 9.1, Total Bilirubin 0.40, AST 8 L, ALT 19, Alkaline Phosphatase 114, Total Protein 6.6, Albumin 2.2 L, Globulin 4.4 H, Albumin/Globulin Ratio 0.5 L 10/14/19 14:28: Lactic Acid 1.5 10/14/19 14:28: Total Creatine Kinase 130 10/14/19 21:00: MRSA (PCR) POSITIVE H 10/14/19 23:15: Urine Opiates Screen POSITIVE H, Urine Methadone Screen NEGATIVE, Ur Barbiturates Screen NEGATIVE, Ur Phencyclidine Scrn NEGATIVE, Ur Amphetamines Screen NEGATIVE, U Methamphetamin-MDMA POSITIVE H, U Benzodiazepines Scrn NEGATIVE, Urine Cocaine Screen NEGATIVE, U Cannabinoids Screen NEGATIVE, Ur Drug Screen Comment 10/15/19 05:16: WBC 8.0, RBC 4.49, Hgb 10.4 L, Hct 32.8 L, MCV 73.1 L, MCH 23.2 L, MCHC 31.7 L, RDW Std Deviation 44.5 H, RDW Coeff of Yasmine 17.1 H, Plt Count 246, MPV 9.7, Immature Gran % (Auto) 2.300 H, Neut % (Auto) 81.2 H, Lymph % (Auto) 7.4 L, Sevier % (Auto) 7.7, Eos % (Auto) 1.3, Baso % (Auto) 0.1, Absolute Neuts (auto) 6.5, Absolute Lymphs (auto) 0.59 L, Nucleated RBC % 0, Differential Comment SCANNED 10/15/19 05:16: Sodium 137, Potassium 3.2 L, Chloride 109 H, Carbon Dioxide 24.0, Anion Gap 4 L, BUN 25 H, Creatinine 0.58, Estim Creat Clear Calc 83.35, Est GFR (MDRD) Af Amer 142, Est GFR (MDRD) Non-Af 118, BUN/Creatinine Ratio 43.3 H, Glucose 116 H, Calcium 8.4 L Current Medications Acetaminophen (Tylenol) 650 mg PO Q6H PRN PRN PRN Reason: Pain Score 1-10/Temp > 100.7 F Last Admin: 10/15/19 01:28 Dose: 650 mg Documented by: Sodium Chloride () 1,000 mls @ 100 mls/hr IV .Q10H [facility] Last Infusion: 10/15/19 08:17 Dose: Infused Documented by: Clindamycin Phosphate 900 mg/ (Dextrose) 106 mls @ 150 mls/hr IV Q8 [facility] Last Infusion: 10/15/19 06:09 Dose: Infused Documented by: Sodium Chloride () 250 mls @ 15 mls/hr IV .[id number] PRN PRN Reason: Saline Flush Sodium Chloride () 250 mls @ 15 mls/hr IV .[id number] PRN PRN Reason: Additional IVPB Infusion Lactobacillus Acidophilus (Acidophilus) 2 tablet PO BID [facility] Last Admin: 10/15/19 09:29 Dose: 2 tablet Documented by: Morphine Sulfate () 2 mg IV Q3H PRN PRN PRN Reason: Pain Score 6-10/10 Last Admin: 10/15/19 09:28 Dose: 2 mg Documented by: Nutritional Formula (Lactose Free) (Ensure Enlive) 120 ml PO 4X/DAY [facility] Last Admin: 10/15/19 12:25 Dose: Not Given Documented by: Ondansetron HCl (Zofran) 4 mg IV Q8H PRN PRN PRN Reason: NAUSEA/VOMITING Oxycodone HCl (Oxyir) 5 mg PO Q6H PRN PRN PRN Reason: Pain Score 6-10/10 Last Admin: 10/15/19 08:16 Dose: 5 mg Documented by: Senna/Docusate Sodium (Senokot-S, Ana-Colace) 2 tablet PO BID PRN PRN PRN Reason: Constipation Sodium Chloride () 10 - 40 ml IV UD PRN PRN Reason: SALINE FLUSH Last Admin: 10/15/19 09:29 Dose: 10 ml Documented by: Zolpidem Tartrate (Ambien (Generic)) 5 mg PO QHS PRN PRN PRN Reason: INSOMNIA Medical Necessity - Tobacco Use Smoking Status: Current every day smoker Tobacco Use: Cigarettes Assessment/Plan All Active Problems Malnutrition (Acute) Sepsis (Acute) Cellulitis (Acute) 1. Acute sepsis 2/2 LLE cellulitis - continue clinda. hx MRSA. MRSA screen +. WBC improved. + fever overnight. Erythema improved. -LE venous US negative -CT LLE skin thickening and cellulitis, edema involving quadriceps. 2. LLE chronic wound - consult to wound care, follows wound care center as o/p 3. Hx Heroin abuse, polysubstance abuse - + tox screen for opiates and meth, she was caught with drugs and paraphernalia last night. 4. Nicotine abuse - 1/2 ppd smoker. continue patch. 5. Hyponatremia - suspect 2/2 sepsis - resolved. 6. Hypokalemia - replete. 7. Microcytic anemia - check iron/tibc. DVT ppx: lovenox This patient was seen by Mauri Finn PA-C under the supervision of Dr. Herrera <Johnna Herrera - Last Filed: 10/15/19 16:44> Vitals/I&O's: Vital Signs Temp Pulse Resp BP Pulse Ox 98.0 F 98 18 96/56 L 100 10/15/19 13:16 10/15/19 13:16 10/15/19 13:16 10/15/19 13:16 10/15/19 13:16 Oxygen Delivery Method Room Air Weight: 108 lb 12.064 oz Body Mass Index (BMI) 21.2 Intake and Output for Last 24 Hours 10/13/19 10/14/19 10/15/19 23:59 23:59 23:59 Intake Total 1260 / 1260 3422.00 / 3422.00 Balance 1260 / 1260 3422.00 / 3422.00 Microbiology Past 72 Hours 10/14/19 17:00 Blood Culture (Wb) - Central Line Blood Culture - Preliminary 10/14/19 14:28 Blood Culture (Wb) - Anticubital Right Blood Culture - Preliminary Laboratory Results 10/14/19 14:28: Total Creatine Kinase 130 10/14/19 21:00: MRSA (PCR) POSITIVE H 10/14/19 23:15: Urine Opiates Screen POSITIVE H, Urine Methadone Screen NEGATIVE, Ur Barbiturates Screen NEGATIVE, Ur Phencyclidine Scrn NEGATIVE, Ur Am phetamines Screen NEGATIVE, U Methamphetamin-MDMA POSITIVE H, U Benzodiazepines Scrn NEGATIVE, Urine Cocaine Screen NEGATIVE, U Cannabinoids Screen NEGATIVE, Ur Drug Screen Comment 10/15/19 05:16: WBC 8.0, RBC 4.49, Hgb 10.4 L, Hct 32.8 L, MCV 73.1 L, MCH 23.2 L, MCHC 31.7 L, RDW Std Deviation 44.5 H, RDW Coeff of Yasmine 17.1 H, Plt Count 246, MPV 9.7, Immature Gran % (Auto) 2.300 H, Neut % (Auto) 81.2 H, Lymph % (Auto) 7.4 L, Sevier % (Auto) 7.7, Eos % (Auto) 1.3, Baso % (Auto) 0.1, Absolute Neuts (auto) 6.5, Absolute Lymphs (auto) 0.59 L, Nucleated RBC % 0, Differential Comment SCANNED 10/15/19 05:16: Sodium 137, Potassium 3.2 L, Chloride 109 H, Carbon Dioxide 24.0, Anion Gap 4 L, BUN 25 H, Creatinine 0.58, Estim Creat Clear Calc 83.35, Est GFR (MDRD) Af Amer 142, Est GFR (MDRD) Non-Af 118, BUN/Creatinine Ratio 43.3 H, Glucose 116 H, Calcium 8.4 L 10/15/19 05:16: Iron 18 L, TIBC 319, Iron Saturation 5.6 L Current Medications Acetaminophen (Tylenol) 650 mg PO Q6H PRN PRN PRN Reason: Pain Score 1-10/Temp > 100.7 F Last Admin: 10/15/19 01:28 Dose: 650 mg Documented by: Sodium Chloride () 1,000 mls @ 100 mls/hr IV .Q10H [facility] Last Infusion: 10/15/19 14:05 Dose: 100 mls/hr Documented by: Sodium Chloride () 250 mls @ 15 mls/hr IV .[id number] PRN PRN Reason: Saline Flush Sodium Chloride () 250 mls @ 15 mls/hr IV .[id number] PRN PRN Reason: Additional IVPB Infusion Vancomycin IV Pharmacy to Dose (1 ea/ Sodium Chloride) 500 mls @ 250 mls/hr IV X1 PRN; Protocol PRN Reason: Rx to Dose Vancomycin HCl 1,250 mg/ (Sodium Chloride) 275 mls @ 167 mls/hr IV X1 ONE Stop: 10/15/19 17:08 Lactobacillus Acidophilus (Acidophilus) 2 tablet PO BID [facility] Last Admin: 10/15/19 09:29 Dose: 2 tablet Documented by: Morphine Sulfate () 2 mg IV Q3H PRN PRN PRN Reason: Pain Score 6-10/10 Last Admin: 10/15/19 09:28 Dose: 2 mg Documented by: Nutritional Formula (Vic - Dawes Flavor) [facility] Ondansetron HCl (Zofran) 4 mg IV Q8H PRN PRN PRN Reason: NAUSEA/VOMITING Oxycodone HCl (Oxyir) 5 mg PO Q6H PRN PRN PRN Reason: Pain Score 6-10/10 Last Admin: 10/15/19 08:16 Dose: 5 mg Documented by: Senna/Docusate Sodium (Senokot-S, Ana-Colace) 2 tablet PO BID PRN PRN PRN Reason: Constipation Sodium Chloride () 10 - 40 ml IV UD PRN PRN Reason: SALINE FLUSH Last Admin: 10/15/19 09:29 Dose: 10 ml Documented by: Zolpidem Tartrate (Ambien (Generic)) 5 mg PO QHS PRN PRN PRN Reason: INSOMNIA STROKE Vital Signs/Narrative: Vital Signs Temp Pulse Resp BP Pulse Ox 10/15/19 13:16 98.0 F 98 18 96/56 L 100 Assessment/Plan Patient seen by Mauri Finn PA-C under my supervision. Patient seen and examined. She was admitted with a complaint of swelling over her left hip and thigh. She has been managed for sepsis due to left lower extremity cellulitis. Patient is an IV drug use and was actually caught with drugs and paraphernalia in her room last night. Today she denies any fever or chills but still complains of pain over her left thigh on the outer aspect. Review of systems otherwise negative. o/e: Vital Signs Temp Pulse Resp BP Pulse Ox 98.0 F 98 18 96/56 L 100 10/15/19 13:16 10/15/19 13:16 10/15/19 13:16 10/15/19 13:16 10/15/19 13:16 General: Alert, Oriented x3, Cooperative HEENT: Atraumatic, PERRLA, EOMI, Normocephalic Neck: Supple, No JVD, Negative Carotid Bruits Lungs: Clear to auscultation, Normal air movement Cardiovascular: Regular rate, No murmurs Abdomen: Bowel Sounds Present, Soft, Non Tender Extremities: Capillary Refill Less than 3 Seconds, Edema - left thigh Skin: No rashes, No breakdown, - - track aldridge on hands. outer aspect of Left thigh erythematous, tender with fluctuant areas, with differential warmth. Has a scabbed ulceration on the outer part of her left leg. Musculoskeletal: No Tenderness to Palpation of Joints or Extremities Neurological: Cranial nerves II-XII grossly intact Psych/Mental Status: Normal Affect, Appropriate, Alert and oriented to time, place, person, mood and affect And was put on IV clindamycin. MRSA screen was positive and blood cultures grew gram-positive cocci in clusters in 2 out of 2 samples. Will switch IV antibiotics to IV vancomycin. Will get 2D echo and repeat blood cultures and consult infectious diseases. Of note, potassium was 3.2 today and will replace and monitor. Duplex of left lower extremity was negative for any DVT. Rest as per Mauri Finn PA-C's notes which I reviewed and endorsed. Inpatient E&M: 21549 Subs Hosp L3
[2019-10-15 14:00] LABS: Iron 18 ug/dL (50-170); Iron Binding Capacity,Total 319 ug/dL (250-450); PERCENT IRON SATURATION 5.6 % (15.0-55.0)
--- NOTE | 2019-10-15 17:12 | PCM.RX.CS ---
Consult Pharmacy has been consulted to manage selected antiobiotic: Vancomycin Type of Consult: New start Suspected Infection: Sepsis Labs: Sodium 137 mmol/L (136-145) 10/15/19 05:16 Potassium 3.2 mmol/L (3.5-5.1) L 10/15/19 05:16 Chloride 109 mmol/L (98-107) H 10/15/19 05:16 Carbon Dioxide 24.0 mmol/L (21.0-32.0) 10/15/19 05:16 Anion Gap 4 (5-15) L 10/15/19 05:16 BUN 25 mg/dL (7-18) H 10/15/19 05:16 Creatinine 0.58 mg/dL (0.55-1.02) 10/15/19 05:16 Est GFR (MDRD) Af Amer 142 mL/min (>60) 10/15/19 05:16 Est GFR (MDRD) Non-Af 118 mL/min (>60) 10/15/19 05:16 BUN/Creatinine Ratio 43.3 RATIO (10-20) H 10/15/19 05:16 Glucose 116 mg/dL (74-106) H 10/15/19 05:16 Microbiology: Microbiology 10/14/19 17:00 Blood Culture (Wb) - Central Line Blood Culture - Preliminary 10/14/19 14:28 Blood Culture (Wb) - Anticubital Right Blood Culture - Preliminary Weight used for dosin kg Estimated Creatinine Clearance: 83ml/min Goal Trough: 15-20 mcg/mL Pharmacy Plan for Drug Dosin/5--new start Vancomycin for cellulitis/sepsis SrCr 0.58 CrCl 83ml/min Weight 49kg Goal Trough 15-20 Administered Vancomycin Doses: 5/5-1250mg loading dose @ 1637 Recommend Vancomycin 1000mg IV q12h starting 10/15 @ 0500 Next level: Trough 10/16 @ 0430 Pharmacy Service will continue to monitor and adjust dosing as required.
--- NOTE | 2019-10-15 17:58 | NURSING ---
This RN taking over care at this time
[2019-10-15] MEDS: 0.9% Normal Saline 1,000 ML 150 ML IV (21:46)
[2019-10-16] VITALS (7 sets, daily range): BP systolic 105–106; BP diastolic 63–74; PULSE 88–106; RESP 17–18; TEMP 36.9–37.2; O2SAT 98–100
[2019-10-16] MEDS: oxyCODONE 5 MG Tablet PO ×2 (04:22→14:10)
[2019-10-16] MEDS: 0.9% Normal Saline 1,000 ML 150 ML IV ×2 (04:22→13:51)
[2019-10-16] MEDS: Vancomycin IV 1,000 MG/200 ML BAG 200 MG IV ×2 (05:00→16:30)
[2019-10-16 05:15] LABS: Absolute Neutrophil Count 14.2 X10^3/uL (2.0-7.7); Basophil# 0.09 X10^3/uL; Basophil% 0.5 % (0-1); Eosinophil# 0.19 X10^3/uL; Eosinophils% 1.1 % (0-5); Hematocrit 31.7 % (37-47); Lymphocyte % 8.7 % (19-41); Mean Corp Hgb Conc 31.5 g/dL (32-36); Mean Corpuscular Hgb 22.3 pg (27.0-32.0); Mean Corpuscular Volume 70.8 fL (81-99); Mean Platelet Vol. 9.5 fl (6.2-12.0); Monocyte# 0.96 X10^3/uL; Monocyte% 5.5 % (0-10); NRBC Flagged by Analyzer 0 % (0-5); Neutrophil # 14.17 X10^3/uL (2.7-7.7); Neutrophil % 81.8 % (47-70); POSITIVE MORPHOLOGY YES; Platelet Count 224 K/mm3 (150-450); RBC Distribution Width CV 17.2 % (11.6-14.6); RBC Distribution Width SD 43.8 fl (35.1-43.9); Red Blood Count 4.48 M/mm3 (4.2-5.4); White Blood Count 17.3 K/mm3 (4.4-11.0)
[2019-10-16 05:23] LABS: Differential Indicated SCAN CRITERIA MET
--- NOTE | 2019-10-16 05:55 | ECHOD_ITS ---
Reason For Study: SEPSIS Procedure This was a 2D Doppler, Color Flow transthoracic echocardiogram. Exam performed portable in patient room. Left Ventricle Normal size and thickness. The estimated ejection fraction is 65 %. Normal diastology for age. No regional wall motion abnormalities noted. Right Ventricle Normal size and thickness. Normal systolic function. Atria Normal left atrium. Normal right atrium. Normal atrial septum. Mitral Valve The mitral valve is structurally normal. No prolapse or stenosis seen. Trivial mitral valve insufficiency. Tricuspid Valve Normal tricuspid valve. Trivial tricuspid valve insufficiency. Right ventricular systolic pressure estimated to be 41 mmHg. Mild pulmonary hypertension. Aortic Valve Normal aortic valve. Trisinus/trileaflet aortic valve. Pulmonic Valve The pulmonic valve is not well visualized. Great Vessels Normal aortic root. Normal arch. Normal inferior vena cava. Inferior vena cava collapse with sniff. Possible transvenous catheter noted in the interface between the right atrium and IVC. Recommend clinical correlation. Pericardium/Pleural No pericardial effusion. MMode/2D Measurements & Calculations LVIDd: 4.3 cm IVSd: 0.67 cm Ao root diam: 2.9 cm LVIDs: 3.1 cm LVPWd: 0.67 cm FS: 29.1 % LAV(MOD-bp): 30.3 ml LA A4 area: 14.2 cm2 LA dimension(2D): 2.5 cm LAV(MOD-bp) Indexed: 21.1 ml/m2 LAV(MOD-sp2): 26.9 ml LAV(MOD-sp4): 35.8 ml RA A4 area: 14.7 cm2 Time Measurements MV dec time: 0.09 sec Doppler Measurements & Calculations MV E max walker: 110.3 cm/sec Lat Peak E' Walker: 13.3 cm/sec Med Peak E' Walker: 12.0 cm/sec MV A max walker: 96.5 cm/sec E/E' lat: 8.3 E/E' med: 9.2 MV E/A: 1.1 Ao V2 max: 153.3 cm/sec LV V1 max: 134.6 cm/sec PA V2 max: 96.3 cm/sec Ao max P.4 mmHg LV V1 max P.2 mmHg TR max walker: 297.9 cm/sec TR max P.7 mmHg Interpretation Summary The estimated ejection fraction is 65 %. Normal diastology for age. Trivial mitral valve insufficiency. Trivial tricuspid valve insufficiency. Right ventricular systolic pressure estimated to be 41 mmHg. Mild pulmonary hypertension. Possible transvenous catheter noted in the interface between the right atrium and IVC. Recommend clinical correlation. There is no comparison study available. Ordering Physician: Johnna Herrera Referring Physician: NIKI GARSIA Performed By: Gabby Cook RDCS, RVT
[2019-10-16 06:30] LABS: Anion Gap 6 (5-15); BUN 12 mg/dL (7-18); BUN/Creat Ratio 28.2 RATIO (10-20); Calcium,Total 8.2 mg/dL (8.5-10.1); Chloride 115 mmol/L (98-107); Creatinine, Serum 0.43 mg/dL (0.55-1.02); EST Glomerular Filtration Rate 167 mL/min (>60); Est Glom Filt Rate - Afr Amer 202 mL/min (>60); Estimated Creatinine Clearance 112.43 ml/min; Glucose 78 mg/dL (74-106); Potassium 2.9 mmol/L (3.5-5.1); Sodium Level 143 mmol/L (136-145)
[2019-10-16 09:32] LABS: Phosphorus 3.5 mg/dL (2.5-4.9)
[2019-10-16] MEDS: Acetaminophen 325 MG Tablet 650 MG PO (09:43)
[2019-10-16] MEDS: Enoxaparin 40 MG/0.4 ML Syringe SC (09:43)
--- NOTE | 2019-10-16 10:22 | CASEMGMT ---
Script for WW faxed to [facility] this am and Antoinette at [facility] aware that pt to discharge soon. Antoinette states that someone can deliver to the hospital [facility]. Per Zachery [address] and Araceli CASTILLO, pt would like to leave AMA at this time despite bacteremia and awaiting ID c/s. Staci CASTILLO CM
--- NOTE | 2019-10-16 10:58 | CASEMGMT ---
SW spoke with patient due to her substance abuse. SW introduced self and role at [facility]. SW asked patient if she would like any resources to help her quit using drugs. She declined stating she is done. She said it is not worth it. SW asked if she has support. She said she does her, daughter and roommate. SW encouraged her to pursue treatment or support through an agency. She thanked SW for checking in with her. Geni MONK MSW
--- NOTE | 2019-10-16 11:50 | NURSING ---
Redness to the left lateral thigh slightly improved. still some warmth noted. no open areas noted. will continue to monitor.
--- NOTE | 2019-10-16 12:31 | PCM.PN.HOSP ---
<Mauri Finn - Last Filed: 10/16/19 12:31> Patient Problems: Active and Suspected Problems Sepsis (Acute) Cellulitis (Acute) Reason for Visit: MRSA bacteremia Subjective: Pt with BlCx x2 with staph aureus. Pt denies fever/chills. She denies any opiate withdrawal symptoms at all and does not want subutex for detox. She Continues to have leg pain, swelling, erythema, tenderness, and warmth, tho it is improving. The patient states that she plans to leave AMA today. I warned her of the risks of , antibiotic resistance, and likeliness of severe worsening of her disease if untreated and she stated that she needed to go to a family birthday green party and she was not interested in living a long life anyway. Vitals/I&O's: Vital Signs Temp Pulse Resp BP Pulse Ox 98.5 F 102 H 18 105/66 100 10/16/19 09:42 10/16/19 09:42 10/16/19 09:42 10/16/19 09:42 10/16/19 09:42 Oxygen Delivery Method Room Air Weight: 108 lb 12.064 oz Body Mass Index (BMI) 21.2 Intake and Output for Last 24 Hours 10/14/19 10/15/19 10/16/19 23:59 23:59 23:59 Intake Total 1260 / 1260 4877.00 / 4877.00 2420.0 / 2420.0 Output Total 775 / 775 Balance 1260 / 1260 4877.00 / 4877.00 1645.0 / 1645.0 General: Alert, Oriented x3, Cooperative HEENT: Atraumatic, PERRLA, EOMI, Normocephalic Neck: Supple, No JVD, Negative Carotid Bruits Lungs: Clear to auscultation, Normal air movement Cardiovascular: Regular rate, No murmurs Abdomen: Bowel Sounds Present, Soft, Non Tender Extremities: No edema, Capillary Refill Less than 3 Seconds Skin: - - minimal change, still red tender warm Musculoskeletal: No Tenderness to Palpation of Joints or Extremities Neurological: Cranial nerves II-XII grossly intact Psych/Mental Status: Normal Affect, Appropriate Microbiology Past 72 Hours 10/14/19 14:28 Blood Culture (Wb) - Anticubital Right Blood Culture - Preliminary Staphylococcus aureus 10/14/19 17:00 Blood Culture (Wb) - Central Line Blood Culture - Preliminary Staphylococcus aureus Laboratory Results 10/15/19 05:16: Iron 18 L, TIBC 319, Iron Saturation 5.6 L 10/16/19 04:42: WBC 17.3 H, RBC 4.48, Hgb 10.0 L, Hct 31.7 L, MCV 70.8 L, MCH 22.3 L, MCHC 31.5 L, RDW Std Deviation 43.8, RDW Coeff of Yasmine 17.2 H, Plt Count 224, MPV 9.5, Immature Gran % (Auto) 2.400 H, Neut % (Auto) 81.8 H, Lymph % (Auto) 8.7 L, Lincoln % (Auto) 5.5, Eos % (Auto) 1.1, Baso % (Auto) 0.5, Absolute Neuts (auto) 14.2 H, Absolute Lymphs (auto) 1.50, Nucleated RBC % 0, Differential Comment COMMENT 10/16/19 04:42: Sodium 143, Potassium 2.9 L, Chloride 115 H, Carbon Dioxide 22.0, Anion Gap 6, BUN 12, Creatinine 0.43 L, Estim Creat Clear Calc 112.43, Est GFR (MDRD) Af Amer 202, Est GFR (MDRD) Non-Af 167, BUN/Creatinine Ratio 28.2 H, Glucose 78, Calcium 8.2 L 10/16/19 09:02: Phosphorus 3.5, Magnesium 2.0 Current Medications Acetaminophen (Tylenol) 650 mg PO Q6H PRN PRN PRN Reason: Pain Score 1-10/Temp > 100.7 F Last Admin: 10/16/19 09:43 Dose: 650 mg Documented by: Enoxaparin Sodium (Lovenox) 40 mg SC DAILY [facility] Last Admin: 10/16/19 09:43 Dose: 40 mg Documented by: Sodium Chloride () 1,000 mls @ 150 mls/hr IV .[id number] GRAY Last Infusion: 10/16/19 10:15 Dose: 150 mls/hr Documented by: Sodium Chloride () 250 mls @ 15 mls/hr IV .[id number] PRN PRN Reason: Saline Flush Sodium Chloride () 250 mls @ 15 mls/hr IV .[id number] PRN PRN Reason: Additional IVPB Infusion Vancomycin IV Pharmacy to Dose (1 ea/ Sodium Chloride) 500 mls @ 250 mls/hr IV X1 PRN; Protocol PRN Reason: Rx to Dose Vancomycin HCl (Vancomycin) 1,000 mg in 200 mls @ 200 mls/hr IV Q12H [facility] Last Infusion: 10/16/19 06:00 Dose: Infused Documented by: Lactobacillus Acidophilus (Acidophilus) 2 tablet PO BID [facility] Last Admin: 10/16/19 08:23 Dose: 2 tablet Documented by: Morphine Sulfate () 2 mg IV Q3H PRN PRN PRN Reason: Pain Score 6-10/10 Last Admin: 10/15/19 22:15 Dose: 2 mg Documented by: Nutritional Formula (Vic - Crosby Flavor) 1 packet PO BIDCO[facility] MONETT Last Admin: 10/16/19 08:23 Dose: 1 packet Documented by: Ondansetron HCl (Zofran) 4 mg IV Q8H PRN PRN PRN Reason: NAUSEA/VOMITING Oxycodone HCl (Oxyir) 5 mg PO Q6H PRN PRN PRN Reason: Pain Score 6-10/10 Last Admin: 10/16/19 04:22 Dose: 5 mg Documented by: Polysaccharide Iron Complex (Ferrex 150) 150 mg PO DAILYCOX MONETT Senna/Docusate Sodium (Senokot-S, Ana-Colace) 2 tablet PO BID PRN PRN PRN Reason: Constipation Sodium Chloride () 10 - 40 ml IV UD PRN PRN Reason: SALINE FLUSH Last Admin: 10/15/19 09:29 Dose: 10 ml Documented by: Zolpidem Tartrate (Ambien (Generic)) 5 mg PO QHS PRN PRN PRN Reason: INSOMNIA STROKE Vital Signs/Narrative: Vital Signs Temp Pulse Resp BP Pulse Ox 10/16/19 09:42 98.5 F 102 H 18 105/66 100 Medical Necessity - Tobacco Use Smoking Status: Current every day smoker Tobacco Use: Cigarettes Assessment/Plan All Active Problems Malnutrition (Acute) Sepsis (Acute) Cellulitis (Acute) 1. Acute sepsis 2/2 LLE cellulitis, bacteremia - clinda changed to vanco. ID consulted. repeat blood cultures. WBC increased with left shift. Ths is likely due to ongoing IV drug abuse. -CT LLE skin thickening and cellulitis, edema involving quadriceps. 2. LLE chronic wound - consult to wound care, follows wound care center as o/p 3. Hx Heroin abuse, polysubstance abuse - + tox screen for opiates and meth, she was caught with drugs and paraphernalia first night here. 4. Nicotine abuse - 1/2 ppd smoker. continue patch. 5. Hyponatremia - suspect 2/2 sepsis - resolved. 6. Hypokalemia - replete. mag/phos normal. 7. Iron def anemia - replete. DVT ppx: lovenox DC planning: PT PLANNING TO LEAVE AMA TODAY. RISKS DISCUSSED PER SUBJECTIVE. This patient was seen by Mauri Finn PA-C under the supervision of Dr. Herrera <Johnna Herrera - Last Filed: 10/16/19 14:04> Vitals/I&O's: Vital Signs Temp Pulse Resp BP Pulse Ox 98.5 F 102 H 18 105/66 100 10/16/19 09:42 10/16/19 09:42 10/16/19 09:42 10/16/19 09:42 10/16/19 09:42 Oxygen Delivery Method Room Air Weight: 108 lb 12.064 oz Body Mass Index (BMI) 21.2 Intake and Output for Last 24 Hours 10/14/19 10/15/19 10/16/19 23:59 23:59 23:59 Intake Total 1260 / 1260 4877.00 / 4877.00 2565.0 / 2565.0 Output Total 775 / 775 Balance 1260 / 1260 4877.00 / 4877.00 1790.0 / 1790.0 Microbiology Past 72 Hours 10/14/19 14:28 Blood Culture (Wb) - Anticubital Right Blood Culture - Preliminary Staphylococcus aureus 10/14/19 17:00 Blood Culture (Wb) - Central Line Blood Culture - Preliminary Staphylococcus aureus Laboratory Results 10/15/19 05:16: Iron 18 L, TIBC 319, Iron Saturation 5.6 L 10/16/19 04:42: WBC 17.3 H, RBC 4.48, Hgb 10.0 L, Hct 31.7 L, MCV 70.8 L, MCH 22.3 L, MCHC 31.5 L, RDW Std Deviation 43.8, RDW Coeff of Yasmine 17.2 H, Plt Count 224, MPV 9.5, Immature Gran % (Auto) 2.400 H, Neut % (Auto) 81.8 H, Lymph % (Auto) 8.7 L, Lincoln % (Auto) 5.5, Eos % (Auto) 1.1, Baso % (Auto) 0.5, Absolute Neuts (auto) 14.2 H, Absolute Lymphs (auto) 1.50, Nucleated RBC % 0, Differential Comment COMMENT 10/16/19 04:42: Sodium 143, Potassium 2.9 L, Chloride 115 H, Carbon Dioxide 22.0, Anion Gap 6, BUN 12, Creatinine 0.43 L, Estim Creat Clear Calc 112.43, Est GFR (MDRD) Af Amer 202, Est GFR (MDRD) Non-Af 167, BUN/Creatinine Ratio 28.2 H, Glucose 78, Calcium 8.2 L 10/16/19 09:02: Phosphorus 3.5, Magnesium 2.0 Current Medications Acetaminophen (Tylenol) 650 mg PO Q6H PRN PRN PRN Reason: Pain Score 1-10/Temp > 100.7 F Last Admin: 10/16/19 09:43 Dose: 650 mg Documented by: Enoxaparin Sodium (Lovenox) 40 mg SC DAILY [facility] Last Admin: 10/16/19 09:43 Dose: 40 mg Documented by: Sodium Chloride () 1,000 mls @ 150 mls/hr IV .[id number] [facility] Last Infusion: 10/16/19 12:30 Dose: 150 mls/hr Documented by: Sodium Chloride () 250 mls @ 15 mls/hr IV .[id number] PRN PRN Reason: Saline Flush Sodium Chloride () 250 mls @ 15 mls/hr IV .[id number] PRN PRN Reason: Additional IVPB Infusion Vancomycin IV Pharmacy to Dose (1 ea/ Sodium Chloride) 500 mls @ 250 mls/hr IV X1 PRN; Protocol PRN Reason: Rx to Dose Vancomycin HCl (Vancomycin) 1,000 mg in 200 mls @ 200 mls/hr IV Q12H [facility] Last Infusion: 10/16/19 06:00 Dose: Infused Documented by: Lactobacillus Acidophilus (Acidophilus) 2 tablet PO BID [facility] Last Admin: 10/16/19 08:23 Dose: 2 tablet Documented by: Morphine Sulfate () 2 mg IV Q3H PRN PRN PRN Reason: Pain Score 6-10/10 Last Admin: 10/15/19 22:15 Dose: 2 mg Documented by: Nutritional Formula (Vic - Crosby Flavor) 1 packet PO BIDCM [facility] Last Admin: 10/16/19 08:23 Dose: 1 packet Documented by: Ondansetron HCl (Zofran) 4 mg IV Q8H PRN PRN PRN Reason: NAUSEA/VOMITING Oxycodone HCl (Oxyir) 5 mg PO Q6H PRN PRN PRN Reason: Pain Score 6-10/10 Last Admin: 10/16/19 04:22 Dose: 5 mg Documented by: Polysaccharide Iron Complex (Ferrex 150) 150 mg PO DAILYCO[facility] Senna/Docusate Sodium (Senokot-S, Ana-Colace) 2 tablet PO BID PRN PRN PRN Reason: Constipation Sodium Chloride () 10 - 40 ml IV UD PRN PRN Reason: SALINE FLUSH Last Admin: 10/15/19 09:29 Dose: 10 ml Documented by: Zolpidem Tartrate (Ambien (Generic)) 5 mg PO QHS PRN PRN PRN Reason: INSOMNIA Assessment/Plan Patient seen by Mauri Finn PA-C under my supervision. Patient seen and examined this morning. She said she felt she was getting better and wanted to leave the hospital in order not to miss her grandsons birthday. She denied any fever or chills, nausea vomiting or increased pain. Review of systems otherwise negative. Blood cultures 2 out of 2 grew staph aureus. 2D echo has been ordered and is pending. o/e: Vital Signs Temp Pulse Resp BP Pulse Ox 98.5 F 102 H 18 105/66 100 10/16/19 09:42 10/16/19 09:42 10/16/19 09:42 10/16/19 09:42 10/16/19 09:42 General: Alert, Oriented x3, Cooperative HEENT: Atraumatic, PERRLA, EOMI, Normocephalic Neck: Supple, No JVD, Negative Carotid Bruits Lungs: Clear to auscultation, Normal air movement Cardiovascular: Regular rate, No murmurs Abdomen: Bowel Sounds Present, Soft, Non Tender Extremities: Capillary Refill Less than 3 Seconds, Edema - left thigh Skin: No rashes, No breakdown, - - track aldridge on hands. outer aspect of Left thigh erythema is improving, with minimal tenderness. Still has firm areas with small fluctuant areas. Has a scabbed ulceration on the outer part of her left leg. Musculoskeletal: No Tenderness to Palpation of Joints or Extremities Neurological: Cranial nerves II-XII grossly intact Psych/Mental Status: Normal Affect, Appropriate, Alert and oriented to time, place, person, mood and affect Patient wanted to leave AGAINST MEDICAL ADVICE today because she said she did not want to miss her grandsons green party. Patient was counseled strongly that blood blood cultures were growing staph aureus and in light of her use of IV drugs, it was important that she get a 2D echo to assess for endocarditis and was also important that she be fully treated for the bacteremia. Repeat blood cultures have been ordered and ID will be consulted. Patient subsequently was agreeable to stay. IV antibiotics switched from IV clindamycin to IV vancomycin yesterday after blood cultures were received. Continue IV vancomycin and await ID recommendations. Of note, patient's potassium today is 2.9. Will aggressively replace and monitor. Magnesium is 2. Patient also noted to be anemic with hemoglobin of around 10. Iron panel done showed iron level of 18 with iron saturation of 5.6 and TIBC of 319. Will check ferritin and if ferritin level is low, will give patient iron replacement therapy. Rest as per Mauri Finn PA-C's note, which I have reviewed and endorsed. Inpatient E&M: 36333 Subs Hosp L3
--- NOTE | 2019-10-16 16:58 | DCINST_ITS ---
- Discharge Diagnoses Current Active Problems: Current Active and Chronic Problems Sepsis (Acute) Cellulitis (Acute) IV drug abuse (Chronic) Nicotine abuse (Chronic) You will use the following diet at home:: Cardiac Your food should be the consistency of: Regular Your liquids should be the consistency of: Regular/Thin Discharge Activity: Return to Normal Activity, - - No further intravenous drug use. Additional Instructions: Antibiotic prescription is being provided by infectious disease. Please be sure to complete the entire course of antibiotics. Allergies/Adverse Reactions: Allergies codeine phosphate [From Tylenol-Codeine #3] Adverse Reaction (Verified 10/14/19 13:03) Vomiting Medications to take at Discharge Acetaminophen [Tylenol] 500 - 1,000 mg PO Q6H PRN PRN 10/14/19 Primary Care Physician: Belén Fall DO [Primary Care Provider] - Please follow up with your Primary Care Physician in: 1 week Test Results: Test results from this visit will be discussed in further detail at your follow- up appointment, if applicable. Please Follow Up With: Belén Fall DO Proposed Discharge Date: 10/16/19
--- NOTE | 2019-10-16 17:01 | PCM.DC.SUM ---
<Mauri Finn - Last Filed: 10/16/19 17:01> Discharge Date and Diagnosis - Problem List Patient Problems: Active and Suspected Problems Sepsis (Acute) Cellulitis (Acute) Date of Admission: 10/14/19 Date of Discharge: 10/16/19 - Primary Discharge Diagnosis Active and Suspected Problems Acute sepsis, bacteremia, 2/2 cellulitis, MRSA IV heroin abuse meth abuse nicotine abuse chronic LE wound hyponatremia 2/2 sepsis resolved iron deficiency anemia. 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 Edematous changes involving the quadriceps muscle as well. The bony structures are unremarkable. Venous duplex: Interpretation Summary There is no evidence of left lower extremity deep vein thrombosis. Left great saphenous vein appears patent and compressible segmentally. Patent and compressible right common femoral vein RAD/CXR for Line Placement IMPRESSION: There is a right IJ line terminating at the level of the diaphragm. Consider repositioning approximately 9 to 10 cm proximally. No acute chest disease. 2D transthoracic Echo: Interpretation Summary The estimated ejection fraction is 65 %. Normal diastology for age. Trivial mitral valve insufficiency. Trivial tricuspid valve insufficiency. Right ventricular systolic pressure estimated to be 41 mmHg. Mild pulmonary hypertension. Possible transvenous catheter noted in the interface between the right atrium and IVC. Recommend clinical correlation. There is no comparison study available. Consultations 10/14/19 18:57 Consult: Onc/Wound/procurement specialist Routine Comment: Operations: None Procedures: 2-D Echocardiogram Summary of Care Provided: Hospital Course: The patient is a 49 year old F with pmhx of IVDU including heroin and meth, nicotine abuse, prior MRSA infection, who presented to the ER with LLE pain. This was in her thigh only on the left side, there was diffiuse erythema, swelling, warmth and tenderness with no open areas or appreciable collections. She had fever that night, had leukocytosis and tachycardia. She was felt to have sepsis 2/2 acute cellulitis. Lactate was negative. She initially denied using any drugs in 3 months, which later changed to 3 weeks, however her drug screen showed meth and opiates and she was caught with a syringe and white powder in the room the first night of presentation. She was admitted on IV clindamycin. She had track aldridge on her arms. She had a distal LLE poorly healing wound that was previously from injective into her leg that she goes to the wound center in [facility]. This did not have any acute cellulitic changes and appeared to be healing. The patient's MRSA screen was positive. She then had blood cultures both showing staph aureus. She was changed to vancomycin and ID was consulted. TTE was obtained with results as above. The patient became insistent on leaving the hospital despite being informed of the dire diagnosis of MRSA bacteremia. Infectious disease was agreeable to placing her on a course of linezolid to take orally at home, since she could not be convinced to stay int he hospital. She was insistent that she had no opiate withdrawal and did not need any detox, and that she did not want to go home to use drugs, but that she wanted to go to a family birthday alliance party. Also while here she was found to have microcytic anemia with iron deficiency. She was given venofer and placed on oral iron to go home on. She will need follow up with her PCP in 1 week. She was discharged home in stable condition. This patient was seen by Mauri Finn PA-C under the supervision of Dr. Herrera. Patient Problems: Active and Suspected Problems Sepsis (Acute) Cellulitis (Acute) - Physical Exam Vitals/I&O's: Vital Signs Temp Pulse Resp BP Pulse Ox 98.6 F 96 18 106/74 98 10/16/19 15:22 10/16/19 15:22 10/16/19 15:22 10/16/19 15:22 10/16/19 15:22 Oxygen Delivery Method Room Air Weight: 108 lb 12.064 oz Body Mass Index (BMI) 21.2 Intake and Output for Last 24 Hours 10/14/19 10/15/19 10/16/19 23:59 23:59 23:59 Intake Total 1260 / 1260 4877.00 / 4877.00 3090.0 / 3090.0 Output Total 775 / 775 Balance 1260 / 1260 4877.00 / 4877.00 2315.0 / 2315.0 General: Alert, Oriented x3, Cooperative HEENT: Atraumatic, PERRLA, EOMI, Normocephalic Neck: Supple, No JVD, Negative Carotid Bruits Lungs: Clear to auscultation, Normal air movement Cardiovascular: Regular rate, No murmurs Abdomen: Bowel Sounds Present, Soft, Non Tender Extremities: No edema, Capillary Refill Less than 3 Seconds Skin: No rashes, No breakdown Musculoskeletal: No Tenderness to Palpation of Joints or Extremities Neurological: Cranial nerves II-XII grossly intact Psych/Mental Status: Normal Affect, Appropriate, Alert and oriented to time, place, person, mood and affect Microbiology Past 72 Hours 10/14/19 14:28 Blood Culture (Wb) - Anticubital Right Blood Culture - Preliminary Staphylococcus aureus 10/14/19 17:00 Blood Culture (Wb) - Central Line Blood Culture - Preliminary Staphylococcus aureus Laboratory Results 10/16/19 04:42: WBC 17.3 H, RBC 4.48, Hgb 10.0 L, Hct 31.7 L, MCV 70.8 L, MCH 22.3 L, MCHC 31.5 L, RDW Std Deviation 43.8, RDW Coeff of Yasmine 17.2 H, Plt Count 224, MPV 9.5, Immature Gran % (Auto) 2.400 H, Neut % (Auto) 81.8 H, Lymph % (Auto) 8.7 L, [place] % (Auto) 5.5, Eos % (Auto) 1.1, Baso % (Auto) 0.5, Absolute Neuts (auto) 14.2 H, Absolute Lymphs (auto) 1.50, Nucleated RBC % 0, Differential Comment COMMENT 10/16/19 04:42: Sodium 143, Potassium 2.9 L, Chloride 115 H, Carbon Dioxide 22.0, Anion Gap 6, BUN 12, Creatinine 0.43 L, Estim Creat Clear Calc 112.43, Est GFR (MDRD) Af Amer 202, Est GFR (MDRD) Non-Af 167, BUN/Creatinine Ratio 28.2 H, Glucose 78, Calcium 8.2 L 10/16/19 04:42: Ferritin Pending 10/16/19 09:02: Phosphorus 3.5, Magnesium 2.0 Current Medications Acetaminophen (Tylenol) 650 mg PO Q6H PRN PRN PRN Reason: Pain Score 1-10/Temp > 100.7 F Last Admin: 10/16/19 09:43 Dose: 650 mg Documented by: Enoxaparin Sodium (Lovenox) 40 mg SC DAILY [facility] Last Admin: 10/16/19 09:43 Dose: 40 mg Documented by: Sodium Chloride () 1,000 mls @ 150 mls/hr IV .Q6H40M [facility] Last Infusion: 10/16/19 16:30 Dose: 0 mls/hr Documented by: Sodium Chloride () 250 mls @ 15 mls/hr IV .[id number] PRN PRN Reason: Saline Flush Sodium Chloride () 250 mls @ 15 mls/hr IV .[id number] PRN PRN Reason: Additional IVPB Infusion Vancomycin IV Pharmacy to Dose (1 ea/ Sodium Chloride) 500 mls @ 250 mls/hr IV X1 PRN; Protocol PRN Reason: Rx to Dose Vancomycin HCl (Vancomycin) 1,000 mg in 200 mls @ 200 mls/hr IV Q12H [facility] Last Admin: 10/16/19 16:30 Dose: 200 mls/hr Documented by: Lactobacillus Acidophilus (Acidophilus) 2 tablet PO BID [facility] Last Admin: 10/16/19 08:23 Dose: 2 tablet Documented by: Morphine Sulfate () 2 mg IV Q3H PRN PRN PRN Reason: Pain Score 6-10/10 Last Admin: 10/15/19 22:15 Dose: 2 mg Documented by: Nutritional Formula (V[facility] - Carbon Fl[facility]) [facility] Last Admin: 10/16/19 16:30 Dose: Not Given Documented by: Ondansetron HCl (Zofran) 4 mg IV Q8H PRN PRN PRN Reason: NAUSEA/VOMITING Oxycodone HCl (Oxyir) 5 mg PO Q6H PRN PRN PRN Reason: Pain Score 6-10/10 Last Admin: 10/16/19 14:10 Dose: 5 mg Documented by: Polysaccharide Iron Complex (Ferrex 150) [facility] Senna/Docusate Sodium (Senokot-S, Ana-Colace) 2 tablet PO BID PRN PRN PRN Reason: Constipation Sodium Chloride () 10 - 40 ml IV UD PRN PRN Reason: SALINE FLUSH Last Admin: 10/15/19 09:29 Dose: 10 ml Documented by: Zolpidem Tartrate (Ambien (Generic)) 5 mg PO QHS PRN PRN PRN Reason: INSOMNIA Discharge Diet: No Restrictions Discharge Activity: Return to Normal Activity, - - No further intravenous drug use. Home Medications: Medications to take at Discharge Acetaminophen [Tylenol] 500 - 1,000 mg PO Q6H PRN PRN 10/14/19 Iron Polysaccharide Complex [Ferrex 150] 150 mg PO DAILY #30 cap 10/16/19 Following Prescrptions Were Given to Patient: Iron Polysaccharide Complex [Ferrex 150] 150 mg PO DAILY #30 cap Transmission Status: Received by Earnest #30 Primary Care Physician: Belén Fall DO [Primary Care Provider] - Please follow up with your Primary Care Physician in: 1 week Please Follow Up With: Belén Fall DO Disposition: Home Minutes spent on discharge:: 35 Patient Condition:: Stable Medical Necessity - Tobacco Use Smoking Status: Current every day smoker Tobacco Use: Cigarettes Meaningful Use Info Meaningful Use Diagnoses (Choose all that apply): None applicable <Johnna Herrera - Last Filed: 10/16/19 17:22> Discharge Date and Diagnosis - Primary Discharge Diagnosis Active and Suspected Problems Sepsis (Acute) Cellulitis (Acute) - Secondary Discharge Diagnosis Chronic Problems Anemia (Chronic) 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 The patient is a 49 year old F past medical history as outlined which includes IV drug use and previous MRSA infection. She was admitted through the ED with a complaint of left lower extremity pain which is mainly on her outer thigh. She had a set diffuse erythema, warmth and swelling and tenderness. She also also had assisted fever and leukocytosis as well as tachycardia. She was admitted and managed for sepsis due to left lower extremity cellulitis. She was admitted and started on IV clindamycin. MRSA screen was positive and blood cultures were positive for staph aureus in 2 out of 2 samples. She was changed to IV vancomycin and infectious disease was consulted. TTE was done which showed EF of 65% with normal mitral valve and no evidence of vegetation on any of the valves. Patient insisted on being discharged and had wanted to leave AGAINST MEDICAL ADVICE. However she was convinced to stay and she waited for ID to evaluate her. Per ID recommendations, patient was discharged on p.o. linezolid. She was also given IV Venofer during admission for iron deficiency anemia. She is to follow-up with her primary care doctor and follow-up with infectious disease. Patient was counseled abstain from IV drug use. Patient seen and examined prior to discharge. She felt potentially said pain and swelling as well as redness had improved markedly. Review of symptoms otherwise negative. Labs and vitals reviewed. Home Medication reviewed and reconciled. o/e: [] Vital Signs Temp Pulse Resp BP Pulse Ox 98.6 F 96 18 106/74 98 10/16/19 15:22 10/16/19 15:22 10/16/19 15:22 10/16/19 15:22 10/16/19 15:22 General: Alert, Oriented x3, Cooperative HEENT: Atraumatic, PERRLA, EOMI, Normocephalic Neck: Supple, No JVD, Negative Carotid Bruits Lungs: Clear to auscultation, Normal air movement Cardiovascular: Regular rate, No murmurs Abdomen: Bowel Sounds Present, Soft, Non Tender Extremities: Capillary Refill Less than 3 Seconds, Edema - left thigh Skin: No rashes, No breakdown, - - track aldridge on hands. outer aspect of Left thigh erythema is improving, with minimal tenderness. Still has firm areas with small fluctuant areas. Has a scabbed ulceration on the outer part of her left leg. Musculoskeletal: No Tenderness to Palpation of Joints or Extremities Neurological: Cranial nerves II-XII grossly intact Psych/Mental Status: Normal Affect, Appropriate, Alert and oriented to time, place, person, mood and affect Plan as above. She is to be on PO Zyvox 600 mg twice daily for 14 days. Rest as per Mauri Finn PA-C's note, which I have reviewed and endorsed. - Physical Exam Vitals/I&O's: Vital Signs Temp Pulse Resp BP Pulse Ox 98.6 F 96 18 106/74 98 10/16/19 15:22 10/16/19 15:22 10/16/19 15:22 10/16/19 15:22 10/16/19 15:22 Oxygen Delivery Method Room Air Weight: 108 lb 12.064 oz Body Mass Index (BMI) 21.2 Intake and Output for Last 24 Hours 10/14/19 10/15/19 10/16/19 23:59 23:59 23:59 Intake Total 1260 / 1260 4877.00 / 4877.00 3090.0 / 3090.0 Output Total 775 / 775 Balance 1260 / 1260 4877.00 / 4877.00 2315.0 / 2315.0 Microbiology Past 72 Hours 10/14/19 14:28 Blood Culture (Wb) - Anticubital Right Blood Culture - Preliminary Staphylococcus aureus 10/14/19 17:00 Blood Culture (Wb) - Central Line Blood Culture - Preliminary Staphylococcus aureus Laboratory Results 10/16/19 04:42: WBC 17.3 H, RBC 4.48, Hgb 10.0 L, Hct 31.7 L, MCV 70.8 L, MCH 22.3 L, MCHC 31.5 L, RDW Std Deviation 43.8, RDW Coeff of Yasmine 17.2 H, Plt Count 224, MPV 9.5, Immature Gran % (Auto) 2.400 H, Neut % (Auto) 81.8 H, Lymph % (Auto) 8.7 L, [place] % (Auto) 5.5, Eos % (Auto) 1.1, Baso % (Auto) 0.5, Absolute Neuts (auto) 14.2 H, Absolute Lymphs (auto) 1.50, Nucleated RBC % 0, Differential Comment COMMENT 10/16/19 04:42: Sodium 143, Potassium 2.9 L, Chloride 115 H, Carbon Dioxide 22.0, Anion Gap 6, BUN 12, Creatinine 0.43 L, Estim Creat Clear Calc 112.43, Est GFR (MDRD) Af Amer 202, Est GFR (MDRD) Non-Af 167, BUN/Creatinine Ratio 28.2 H, Glucose 78, Calcium 8.2 L 10/16/19 04:42: Ferritin Pending 10/16/19 09:02: Phosphorus 3.5, Magnesium 2.0 Current Medications Acetaminophen (Tylenol) 650 mg PO Q6H PRN PRN PRN Reason: Pain Score 1-10/Temp > 100.7 F Last Admin: 10/16/19 09:43 Dose: 650 mg Documented by: Enoxaparin Sodium (Lovenox) 40 mg SC DAILY [facility] Last Admin: 10/16/19 09:43 Dose: 40 mg Documented by: Sodium Chloride () 1,000 mls @ 150 mls/hr IV .Q6H40M [facility] Last Infusion: 10/16/19 16:30 Dose: 0 mls/hr Documented by: Sodium Chloride () 250 mls @ 15 mls/hr IV .[id number] PRN PRN Reason: Saline Flush Sodium Chloride () 250 mls @ 15 mls/hr IV .[id number] PRN PRN Reason: Additional IVPB Infusion Vancomycin IV Pharmacy to Dose (1 ea/ Sodium Chloride) 500 mls @ 250 mls/hr IV X1 PRN; Protocol PRN Reason: Rx to Dose Vancomycin HCl (Vancomycin) 1,000 mg in 200 mls @ 200 mls/hr IV Q12H [facility] Last Admin: 10/16/19 16:30 Dose: 200 mls/hr Documented by: Lactobacillus Acidophilus (Acidophilus) 2 tablet PO BID [facility] Last Admin: 10/16/19 08:23 Dose: 2 tablet Documented by: Morphine Sulfate () 2 mg IV Q3H PRN PRN PRN Reason: Pain Score 6-10/10 Last Admin: 10/15/19 22:15 Dose: 2 mg Documented by: Nutritional Formula (Vic - Carbon Flavor) [facility] Last Admin: 10/16/19 16:30 Dose: Not Given Documented by: Ondansetron HCl (Zofran) 4 mg IV Q8H PRN PRN PRN Reason: NAUSEA/VOMITING Oxycodone HCl (Oxyir) 5 mg PO Q6H PRN PRN PRN Reason: Pain Score 6-10/10 Last Admin: 10/16/19 14:10 Dose: 5 mg Documented by: Polysaccharide Iron Complex (Ferrex 150) 150 mg PO DAILY[facility] Senna/Docusate Sodium (Senokot-S, Ana-Colace) 2 tablet PO BID PRN PRN PRN Reason: Constipation Sodium Chloride () 10 - 40 ml IV UD PRN PRN Reason: SALINE FLUSH Last Admin: 10/15/19 09:29 Dose: 10 ml Documented by: Zolpidem Tartrate (Ambien (Generic)) 5 mg PO QHS PRN PRN PRN Reason: INSOMNIA Please Follow Up With: Flex Monet MD When: 1-2 weeks Inpatient E&M: [id number] Disch Hosp
--- NOTE | 2019-10-16 17:21 | PCM.HP.ID ---
Problem List (1) Sepsis Status: Acute Reason for Consult: MRSA bacteremia Consulted by: Dr. Herrera History of Present Illness: The patient is a 49 year old F with IV heroin use, denies injecting in past 3 months after getting MRSA abscess in R moura at injection site. Says she switched to snorting exclusively, but reportedly was found with a needle and powder in her room here. Came to hospital with several days progressive L lateral thigh redness, hardness, pain. No drainage, no fever, no other joint/back pain. Denies sharing needles, reports recent neg hiv and hep screen. Found to have MRSA here in [facility], reports leg is better and she wants to leave. Full ROS performed and neg except as noted above. 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 (Chronic) x 2 superior and inferior moura IV drug abuse (Chronic) Nicotine abuse (Chronic) Allergies/Adverse Reactions: Allergies codeine phosphate [From Tylenol-Codeine #3] Adverse Reaction (Verified 10/14/19 13:03) Vomiting Home Medications: Ambulatory Orders Medication Instructions Recorded Acetaminophen [Tylenol] 500 - 1,000 mg PO Q6H PRN PRN 10/14/19 Iron Polysaccharide Complex 150 mg PO DAILY #30 cap 10/16/19 [Ferrex 150] Linezolid 600 mg PO BID #28 tab 10/16/19 - Social History Tobacco Use: cigarettes Drug Use: heroin Vital Signs Temp Pulse Resp BP Pulse Ox 98.6 F 96 18 106/74 98 10/16/19 15:22 10/16/19 15:22 10/16/19 15:22 10/16/19 15:22 10/16/19 15:22 Oxygen Delivery Method Room Air Weight: 49.33 kg Body Mass Index (BMI) 21.2 Microbiology Past 72 Hours 10/14/19 14:28 Blood Culture - Preliminary Blood Culture (Wb) - Anticubital Right Staphylococcus aureus 10/14/19 17:00 Blood Culture - Preliminary Blood Culture (Wb) - Central Line Staphylococcus aureus Laboratory Tests Past 24 Hrs 10/16/19 10/16/19 10/16/19 04:42 04:42 04:42 WBC 17.3 H RBC 4.48 Hgb 10.0 L Hct 31.7 L MCV 70.8 L MCH 22.3 L MCHC 31.5 L RDW Std Deviation 43.8 RDW Coeff of Yasmine 17.2 H Plt Count 224 MPV 9.5 Immature Gran % (Auto) 2.400 H Neut % (Auto) 81.8 H Lymph % (Auto) 8.7 L Mcintosh % (Auto) 5.5 Eos % (Auto) 1.1 Baso % (Auto) 0.5 Absolute Neuts (auto) 14.2 H Absolute Lymphs (auto) 1.50 Nucleated RBC % 0 Differential Comment COMMENT Sodium 143 Potassium 2.9 L Chloride 115 H Carbon Dioxide 22.0 Anion Gap 6 BUN 12 Creatinine 0.43 L Estim Creat Clear Calc 112.43 Est GFR (MDRD) Af Amer 202 Est GFR (MDRD) Non-Af 167 BUN/Creatinine Ratio 28.2 H Glucose 78 Calcium 8.2 L Phosphorus Magnesium Ferritin Pending 10/16/19 09:02 WBC RBC Hgb Hct MCV MCH MCHC RDW Std Deviation RDW Coeff of Yasmine Plt Count MPV Immature Gran % (Auto) Neut % (Auto) Lymph % (Auto) Mcintosh % (Auto) Eos % (Auto) Baso % (Auto) Absolute Neuts (auto) Absolute Lymphs (auto) Nucleated RBC % Differential Comment Sodium Potassium Chloride Carbon Dioxide Anion Gap BUN Creatinine Estim Creat Clear Calc Est GFR (MDRD) Af Amer Est GFR (MDRD) Non-Af BUN/Creatinine Ratio Glucose Calcium Phosphorus 3.5 Magnesium 2.0 Ferritin - Other Studies Radiology: [] reviewed Other Studies: [] Route of nutrition/ use of supplements: [] Nutritional Intake: [] IV Site: [] Kuo Catheter: [] - Physical Exam General: Alert, Oriented x3, Cooperative, No apparent distress HEENT: Atraumatic, PERRLA, EOMI Neck: Supple, No Nodes Lungs: Clear to auscultation, Normal air movement Cardiovascular: Regular rate, Regular Rhythm, No murmurs Abdomen: Soft, Non Tender, Non-Distended Extremities: No edema Skin: - - L lateral thigh redness, induration, improving IV Site: Peripheral, without redness Musculoskeletal: No Tenderness to Palpation of Joints or Extremities Neurological: Cranial nerves II-XII grossly intact - Assessment/Plan Antibiotics: [] Assessment/Plan: [] Active and Suspected Problems Sepsis (Acute) Cellulitis (Acute) MRSA bacteremia due to LLE infection - neg TTE. No sign of endocarditis on exam. No abscess on CT. H/o IVDU with heroin and prior MRSA infection at injection sites. Counseled re: risk of with untreated MRSA bacteremia. Fever rapidly resolved here. Ok for home on po linezolid for 2 week course, I gave her my card if she has any issue getting the abx. Will follow as needed, thank you, d/w Dr. Herrera.
--- NOTE | 2019-10-17 15:52 | CASEMGMT ---
JONATHAN REEDER Discharge Follow-Up Phone Call. Maura: Lisa Strata: 3 Discharge Date: 10/16/19 Adm Dx: Left thigh cellulitis, Sepsis Call to pt to inquire about how she has been doing since being discharged from the hospital. She states she is doing okay. She states she got the Linezolid today and Ferrous sulfate. JONATHAN REEDER discussed importance of taking medication as prescribed and the Linezolid through completion, as the infection can come back worse if full treatment is not completed. Pt voices understanding. Pt aware of Phone appt with PCP. She states she has been taking Tylenol for discomfort. She reports her swelling in her leg had worsened last evening, but states she was up walking on them a lot and once she was able to elevate them, the swelling lessened and is better today. She denies having any questions/concerns/needs. She denies having a fever. JONATHAN REEDER thanked pt for choosing [facility]. Niru MERCEDES RN, CM
== END 2019-10-16 18:37 | disposition home or self-care (01) | DRG 720 ==
LOC: ED 17:03 → PCU 18:01
PROVIDERS: Physician Assistant; Admitting Provider Hospitalist; Emergency Provider Emergency Medicine; Visit Provider Student in an Organized Health Care Education/Training Program
DX: A41.02 Sepsis due to Methicillin resistant Staphylococcus aureus (principal); L03.116 Cellulitis of left lower limb; E87.1 Hypo-osmolality and hyponatremia; D50.9 Iron deficiency anemia, unspecified; F15.10 Other stimulant abuse, uncomplicated; F17.210 Nicotine dependence, cigarettes, uncomplicated; F11.10 Opioid abuse, uncomplicated; E87.6 Hypokalemia; L97.829 Non-pressure chronic ulcer of other part of left lower leg with unspecified severity
CPT/HCPCS: 36415; 71045; 73700; 80048; 80053; 80307; 82550; 83540; 83550; 83605; 83735; 84100; 85025; 87040; 87077; 87186; 87641; 93306; 93971; 96374; 96375; 97162; 97166; 97535; 97802; 99284; 99406; J1756; J7030; J7050; A4216; C1751; J2405

== ENCOUNTER 2023-10-13 18:27 | Emergency (ER) | payer MEDICAID, SELFPAY ==
[2023-10-13] VITALS (8 sets, daily range): BP systolic 88–147; BP diastolic 60–106; PULSE 96–114; RESP 16–22; TEMP 36.4–36.5; O2SAT 96–98; BMI 15.6
--- NOTE | 2023-10-13 18:55 | EX.ED.DYSGE1 ---
HPI History of Present Illness Chief Complaint: Back Narrative Narrative: History and physical is mildly limited secondary to patient not remembering details. Per triage note/EMS, patient received a phone call that she was supposed to be transferred to . 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 She was going to have orthopedic intervention but left AMA. 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 Patient states that she had an outpatient MRI in [place] today, was released, went home, and then received a phone call that she was supposed to come back to the [facility] because of concerning MRI results. She cannot remember which hospital had called her, but she had called the local squad to bring her to the emergency department in hopes of transfer. PFSH PFS Home Medications acetaminophen 500 mg tablet 500 - 1,000 mg PO Q6H PRN PRN Pain Or Fever 10/14/19 [History Last Taken 10/14/19] linezolid 600 mg tablet 600 mg PO BID #28 tabs 10/16/19 [Rx Last Taken Unknown] polysaccharide iron complex 150 mg iron capsule 150 mg PO DAILY #30 caps 10/16/19 [Rx Last Taken Unknown] Social History Smoking Status: Current every day smoker tobacco type: cigarettes ROS ROS ED ROS Narrative Constitutional: No fever, no chills. HEENT: No sore throat. No neck pain. No loss of vision. No rhinorrhea. Cardiovascular: No chest pain. No palpitations. No pedal edema. Respiratory: No cough, no shortness of breath. Abdominal: No abdominal pain. No nausea. No vomiting. Genitourinary: No dysuria. No hematuria. Musculoskeletal: No myalgias. No arthralgias. Neurologic: No headaches. No dizziness. No lightheadedness. Chronic neck pain. Increasing forgetfulness. Skin: No rash. No change in color. EXAM Physical Exam Narrative Exam Narrative: Afebrile. Vital signs noted. Cachectic appearing. Regular tachycardia. Lungs clear to auscultation bilaterally. Abdomen soft and nontender. Const Vital Signs: 10/13/23 18:29 10/13/23 18:50 10/13/23 19:00 Temperature 97.5 F L 97.5 F L Temperature Source Temporal Temporal Pulse Rate 114 H 107 H Respiratory Rate 16 20 H Blood Pressure 144/103 H 134/99 H Blood Pressure Mean 116 110 Pulse Ox 96 98 Oxygen Delivery Method Room Air MDM MDM MDM Narrative Medical decision making narrative: [facility] records were obtained. I reviewed a phone call intervention note from Dr. Flora Christine on from today at 1731. It states that I received the alert regarding the cells outpatient MRI findings. I was advised to contact the inpatient neurosurgery consult pager. And I spoke with the inpatient neurosurgery contact provided at [facility], who asked that I contact the facility for Ms. Concepcion to send her to the emergency department given progressive hydrocephalus noted on MRI despite improvement in abscesses otherwise. I alerted the facility who will plan to arrange for transportation to the ED at [facility] given her history. I will obtain baseline laboratories and contact the transfer line. I am unsure if they were planning on sending squad out to her home to transport her to [facility]. I reviewed her laboratory work that I obtained baseline, and she has normal white count of 7.5, hemoglobin 11.8 and platelet count 223. Electrolyte panel is significant for BUN of 22 and creatinine low at 0.48, glucose appropriately elevated at 118, sodium normal at 141 and potassium 3.5. After discussion with the transfer line, she has been accepted by the ED physician without consultation. She will be transferred to the ED at [facility] in stable condition. History & Record Review Discussion w/independent historian: EMS personnel and Patient Additional record(s) reviewed:: Prior outpatient record ( phone conversations through and mri results) Lab Data Attestation: I reviewed the patient's lab results. Labs: Laboratory Results - last 24 hr 10/13/23 19:25 WBC 7.5 RBC 5.06 Hgb 11.8 L Hct 37.6 MCV 74.3 L MCH 23.3 L MCHC 31.4 L RDW Std Deviation 50.1 H RDW Coeff of Yasmine 19.0 H Plt Count 223 MPV 9.3 Immature Gran % (Auto) 0.300 Neut % (Auto) 64.0 Lymph % (Auto) 24.9 Taney % (Auto) 8.6 Eos % (Auto) 1.7 Baso % (Auto) 0.5 Absolute Neuts (auto) 4.8 Absolute Lymphs (auto) 1.88 Nucleated RBC % 0 Sodium 141 Potassium 3.5 Chloride 109 H Carbon Dioxide 26.0 Anion Gap 6 BUN 22 H Creatinine 0.48 L Estim Creat Clear Calc 79.53 Est GFR (MDRD) Af Amer 175 Est GFR (MDRD) Non-Af 144 BUN/Creatinine Ratio 46.1 H Glucose 118 H Calcium 9.5 Total Bilirubin 0.20 AST 22 ALT 58 H Alkaline Phosphatase 103 Total Protein 7.1 Albumin 3.1 L Globulin 4.0 Albumin/Globulin Ratio 0.8 L Discharge Plan Triage Chief Complaint: Back Other Complaint: Cellulitis ED Provider: Will Rojas Dx/Rx/DC Orders Clinical Impression: Epidural abscess, Brain abscess, Hydrocephalus Prescriptions: No Action acetaminophen 500 MG tablet 500 - 1,000 mg PO Q6H PRN PRN (Reason: Pain Or Fever) polysaccharide iron complex 150 MG capsule 150 mg PO DAILY Qty: 30 0RF linezolid 600 MG tablet 600 mg PO BID Qty: 28 0RF Primary Care Provider: Belén Fall Referrals: Belén Fall DO [Primary Care Provider] - Disposition Disposition: Acute Care Hospital Discharge Location: [facility]
[2023-10-13 19:30] LABS: Absolute Lymphocyte Count 1.88 X10^3/uL (0.83-4.51); Absolute Neutrophil Count 4.8 X10^3/uL (2.0-7.7); Basophil# 0.04 X10^3/uL; Basophil% 0.5 % (0-1); Eosinophil# 0.13 X10^3/uL; Eosinophils% 1.7 % (0-5); Hematocrit 37.6 % (37-47); Hemoglobin 11.8 g/dL (12.0-15.0); Lymphocyte # 1.88 X10^3/ul (0.83-4.51); Lymphocyte % 24.9 % (19-41); Mean Corp Hgb Conc 31.4 g/dL (32-36); Mean Corpuscular Hgb 23.3 pg (27.0-32.0); Mean Corpuscular Volume 74.3 fL (81-99); Mean Platelet Vol. 9.3 fl (6.2-12.0); Monocyte# 0.65 X10^3/uL; Monocyte% 8.6 % (0-10); NRBC Flagged by Analyzer 0 % (0-5); Neutrophil # 4.82 X10^3/uL (2.7-7.7); Platelet Count 223 K/mm3 (150-450); RBC Distribution Width SD 50.1 fl (35.1-43.9); Red Blood Count 5.06 M/mm3 (4.2-5.4); White Blood Count 7.5 K/mm3 (4.4-11.0)
[2023-10-13 19:46] LABS: ALB/GLOB Ratio 0.8 RATIO (0.9-2.4); AST(SGOT) 22 U/L (15-37); Alanine Aminotransfer ALT/SGPT 58 U/L (13-56); Albumin, Serum 3.1 g/dL (3.2-5.0); Alkaline Phosphatase 103 U/L (45-117); Anion Gap 6 (5-15); BUN 22 mg/dL (7-18); BUN/Creat Ratio 46.1 RATIO (10-20); Calcium,Total 9.5 mg/dL (8.5-10.1); Chloride 109 mmol/L (98-107); Creatinine, Serum 0.48 mg/dL (0.55-1.02); EST Glomerular Filtration Rate 144 mL/min (>60); Est Glom Filt Rate - Afr Amer 175 mL/min (>60); Estimated Creatinine Clearance 79.53 ml/min; Glucose 118 mg/dL (74-106); Potassium 3.5 mmol/L (3.5-5.1); Protein, Total 7.1 g/dL (6.4-8.2); Sodium Level 141 mmol/L (136-145)
--- NOTE | 2023-10-13 20:04 | ED.RN ---
Attempted to call [facility] for details on last dose of vanc.- no answer
--- NOTE | 2023-10-13 21:31 | ED.RN ---
Attempted to call report to . Phone rang and rang. NO answer.
== END 2023-10-13 21:51 | disposition short-term general hospital (02) ==
PROVIDERS: Emergency Provider Emergency Medicine; Visit Provider Emergency Medicine
DX: G06.1 Intraspinal abscess and granuloma (principal); G91.9 Hydrocephalus, unspecified; G06.0 Intracranial abscess and granuloma; F17.210 Nicotine dependence, cigarettes, uncomplicated; Z79.899 Other long term (current) drug therapy
CPT/HCPCS: 80053; 85025; 99284; A4216